=== PATIENT | male | born 1985 | race Caucasian/White ===

== ENCOUNTER 2020-07-20 15:18 | Inpatient (IN) ==
[2020-07-20] MEDS ORDERED: LORazepam 1 MG TAB SL STA (16:23)
[2020-07-20] MEDS ORDERED: ONDANSETRON 4 MG OD TAB PO STA (16:23)
[2020-07-20] MEDS ORDERED: MULTI-VITAMIN INFUSION 10 ML, THIAMINE HCL 100 MG, FOLIC ACID 1 MG in SODIUM CHLORIDE 0... IV ONE (16:23)
--- NOTE | 2020-07-20 16:33 | Emergency Department Note ---
History of Present Illness General Chief complaint: Detox Request Stated complaint: SWELLING TO BOTH LEGS AND FACE Time Seen by Provider: 07/20/20 16:11 Source: patient Mode of arrival: ambulatory Limitations: no limitations History of Present Illness Provider complaint: Leg swelling abdominal pain Maximum Pain Intensity: 8 This is a 35-year-old male who presents to the ED with a chief complaint of several complaints. The patient states that he has had feet swelling and lower extremity swelling off and on but it has been present and bad the past couple of days. He states that he has some tremors because he feels that he is coming off of methadone and alcohol. He did drink alcohol a couple of hours ago. He reports his last methadone use was yesterday. He states that he " feels like crap". The patient reports nausea and vomiting intermittently for the past couple of days. He also states that his teeth and gums have been bothering him for a long time. He reports some swelling in his face. The patient reports also some diffuse abdominal pain that is worse on the right upper and lower quadrants for the past couple of days. Home Medications Medication Instructions Recorded Confirmed Type METHADONE HCL 96 mg PO QAM #0 04/10/15 12/30/19 History Allergies Allergy/AdvReac Type Severity Reaction Status Date / Time No Known Allergies Allergy Unverified 12/30/19 11:53 Past Med/Surg History Medical History (Updated 07/20/20 @ 19:39 by Fuentes Noriega DO) Hyponatremia Hypoxia Multiple thermal rockwell Pneumonia Vomiting Social History Smoking Status: Current every day smoker Tobacco Type: Cigarettes Preferred Language: Lithuanian Feels Safe at Home: Yes Review of Systems A total of 10 systems reviewed and were otherwise negative Physical Exam Vital Signs Vital Signs - 24 hr 07/20/20 15:18 07/20/20 15:27 07/20/20 16:05 Temperature 36.3 C L Temperature Source Oral Pulse Rate 110 H 99 H Pulse Rate from SpO2 Sensor 100 H Pulse Rhythm Respiratory Rate 18 19 Blood Pressure 111/65 130/81 Blood Pressure Mean 80 96 Pulse Oximetry 95 92 97 Oxygen Delivery Method Room Air Room Air Oxygen Flow Rate Sepsis Recent Fever Within 48 Hours No Sepsis New/Unexplained Change in Mental Status No Sepsis Action Taken by Nursing No Action Required 07/20/20 16:24 07/20/20 16:30 07/20/20 17:04 Temperature Temperature Source Pulse Rate 110 H 96 H 99 H Pulse Rate from SpO2 Sensor 96 H 98 H Pulse Rhythm Regular Respiratory Rate 18 12 20 Blood Pressure 115/76 90/69 L Blood Pressure Mean 89 80 Pulse Oximetry 95 92 91 Oxygen Delivery Method Room Air Oxygen Flow Rate Sepsis Recent Fever Within 48 Hours Sepsis New/Unexplained Change in Mental Status Sepsis Action Taken by Nursing 07/20/20 17:30 07/20/20 18:00 07/20/20 19:00 Temperature Temperature Source Pulse Rate 91 H 92 H 100 H Pulse Rate from SpO2 Sensor 90 91 H 101 H Pulse Rhythm Respiratory Rate 17 13 12 Blood Pressure 116/71 126/72 123/73 Blood Pressure Mean 88 88 90 Pulse Oximetry 96 96 95 Oxygen Delivery Method Nasal Cannula Oxygen Flow Rate 2 Sepsis Recent Fever Within 48 Hours Sepsis New/Unexplained Change in Mental Status Sepsis Action Taken by Nursing CONSTITUTIONAL/VITAL SIGNS: Reviewed / noted above. GENERAL: Non-toxic in appearance. INTEGUMENTARY: Warm, dry, and [place]. HEAD: Normocephalic. EYES: without scleral icterus or trauma. ENT/OROPHARYNX: clear and moist. The patient has diffusely poor dentition. The mouth appears slightly dry. No obvious asymmetric swelling to the face. LYMPHADENOPATHY/NECK: Is supple without lymphadenopathy or meningismus. RESPIRATORY: Lungs clear and equal. CARDIOVASCULAR: Slightly tachycardic rate and rhythm. GI/ABDOMEN: Soft and tender primarily in the right upper and lower quadrants. No organomegaly or pulsatile mass. No rebound or guarding. Normal bowel sounds. EXTREMITIES: Warm and well perfused. The patient has bilateral lower extremity edema at least up to the knees. BACK: No CVA tenderness. NEUROLOGICAL: Intact without focal deficits. PSYCHIATRIC: normal affect. MUSCULOSKELETAL: Normally developed with good muscle tone. TRIAGE NURSING DOCUMENTATION REVIEWED. Course Administered Medications Discontinued Medications Multivitamins 10 ml/ Thiamine HCl 100 mg/ Folic Acid 1 mg/Sodium Chloride 1,011.2 mls @ 1,011.2 mls/hr IV .Q1H ONE Stop: 07/20/20 17:22 Last Infusion: 07/20/20 19:19 Dose: 0 mls/hr Documented by: [id number] Admin: 07/20/20 17:25 Dose: 1,011.2 mls/hr Documented by: [id number] Lorazepam (Lorazepam 1 Mg Tab) 1 mg SL NOW STA Stop: 07/20/20 16:24 Last Admin: 07/20/20 16:49 Dose: 1 mg Documented by: [id number] Ondansetron HCl (Ondansetron 4 Mg Od Tab) 4 mg PO NOW STA Stop: 07/20/20 16:24 Last Admin: 07/20/20 16:49 Dose: 4 mg Documented by: [id number] Medical Decision Making Differential Diagnosis Differential includes acute coronary syndrome, myocardial infarction, CVA, TIA, anemia, infection, pneumonia, UTI, pyelonephritis, poor nutrition, dehydration, electrolyte disturbance,hypoglycemia, toxicologic process, toxicology withdrawal syndrome, hypoproteinemia, appendicitis, acute cholecystitis, cirrhosis, pancreatitis, bowel obstruction, bowel perforation. Medical Records Attestation: I reviewed the patient's medical records. Home Medications Current Medication List: was personally reviewed by me Laboratory Data Attestation: I reviewed the patient's lab results. Result diagrams: 07/20/20 17:01 07/20/20 17:01 Lab Results 07/20/20 07/20/20 07/20/20 Range/Units 17:01 17:01 17:02 WBC 4.48 L (4.8-10.8) K/uL RBC 3.58 L (4.7-6.1) M/uL Hgb 13.2 L (14.0-18.0) g/dL Hct 37.5 L (42-52) % MCV 104.7 H (80-100) fL MCH 36.9 H (25-34) pg MCHC 35.2 (32-36) g/dL RDW Std Deviation 64.1 H (36.4-46.3) fL RDW Coeff of Lenora 16.7 H (11.5-14.5) % Plt Count 70 L (130-400) K/uL MPV 11.5 H (7.4-10.4) fL Immature Gran % (Auto) 0.4 % Neut % (Auto) 64.0 % Lymph % (Auto) 23.0 % Louisa % (Auto) 11.8 % Eos % (Auto) 0.4 % Baso % (Auto) 0.4 % Neut # (Auto) 2.86 (1.4-6.5) K/uL Lymph # (Auto) 1.03 L (1.2-3.4) K/uL Louisa # (Auto) 0.53 (0.11-0.59) K/uL Eos # (Auto) 0.02 (0-0.5) K/uL Baso # (Auto) 0.02 (0-0.2) K/uL Immature Gran # (Auto) 0.02 (0.00-0.02) K/uL Platelet Estimate Decreased L (Normal) Target Cells 1+ PT 13.1 H (9.0-12.0) Seconds INR 1.3 H (0.9-1.1) APTT 29.2 (21.0-31.0) Seconds PTT Ratio 1.0 Sodium 132 L (136-145) mmol/L Potassium 3.2 L (3.5-5.1) mmol/L Chloride 94 L (98-107) mmol/L Carbon Dioxide 26 (21-32) mmol/L Anion Gap 13.0 H (3-11) BUN 3 L (7-18) mg/dl Creatinine 0.63 (0.6-1.4) mg/dl Est Cr Clr Drug Dosing 178.5 ml/min Est GFR ( Amer) 149.0 Est GFR (Non-Af Amer) 128.6 BUN/Creatinine Ratio 4.9 L (10-20) Glucose 127 H (70-99) mg/dl Calcium 8.4 L (8.5-10.1) mg/dl Total Bilirubin 7.6 H (0.2-1) mg/dl AST 642 H (15-37) U/L ALT 120 H (12-78) U/L Alkaline Phosphatase 359 H (45-117) U/L Total Protein 8.2 (6.4-8.2) gm/dl Albumin 2.6 L (3.4-5.0) gm/dl Globulin 5.6 H (2.5-4.0) gm/dl Albumin/Globulin Ratio 0.5 L (0.9-2) Lipase 276 (73-393) U/L Urine Color Urine Appearance (Clear) Urine pH (4.5-7.5) Ur Specific [place] (1.000-1.030) Urine Protein (Negative) Urine Glucose (UA) (Negative) Urine Ketones (Negative) Urine Blood (Negative) Urine Nitrite (Negative) Urine Bilirubin (Negative) Urine Urobilinogen (Negative) Ur Leukocyte Esterase (Negative) Urine WBC (Auto) (0-5) /hpf Urine RBC (Auto) (0-4) /hpf U Hyaline Cast (Auto) (0-5) /lpf U Epithel Cells (Auto) (0-5) /lpf Urine Bacteria (Auto) (Negative) Ur Renal Epithelial Cell (0-5) /lpf Urine Crystals Urine Opiates Screen (Neg) Ur Methadone, Qual (Neg) Urine Barbiturates (Neg) Ur Phencyclidine (PCP) (Neg) U Amphetamin/Meth Scrn (Neg) MDMA (Ecstasy) Screen (Neg) U Benzodiazepines Scrn (Neg) Ur Cocaine Metabolite (Neg) U Marijuana (THC) Screen (Neg) Ethyl Alcohol mg/dL (0-3) mg/dl 07/20/20 07/20/20 07/20/20 Range/Units 18:37 18:37 18:58 WBC (4.8-10.8) K/uL RBC (4.7-6.1) M/uL Hgb (14.0-18.0) g/dL Hct (42-52) % MCV (80-100) fL MCH (25-34) pg MCHC (32-36) g/dL RDW Std Deviation (36.4-46.3) fL RDW Coeff of Lenora (11.5-14.5) % Plt Count (130-400) K/uL MPV (7.4-10.4) fL Immature Gran % (Auto) % Neut % (Auto) % Lymph % (Auto) % Louisa % (Auto) % Eos % (Auto) % Baso % (Auto) % Neut # (Auto) (1.4-6.5) K/uL Lymph # (Auto) (1.2-3.4) K/uL Louisa # (Auto) (0.11-0.59) K/uL Eos # (Auto) (0-0.5) K/uL Baso # (Auto) (0-0.2) K/uL Immature Gran # (Auto) (0.00-0.02) K/uL Platelet Estimate (Normal) Target Cells PT (9.0-12.0) Seconds INR (0.9-1.1) APTT (21.0-31.0) Seconds PTT Ratio Sodium (136-145) mmol/L Potassium (3.5-5.1) mmol/L Chloride (98-107) mmol/L Carbon Dioxide (21-32) mmol/L Anion Gap (3-11) BUN (7-18) mg/dl Creatinine (0.6-1.4) mg/dl Est Cr Clr Drug Dosing ml/min Est GFR ( Amer) Est GFR (Non-Af Amer) BUN/Creatinine Ratio (10-20) Glucose (70-99) mg/dl Calcium (8.5-10.1) mg/dl Total Bilirubin (0.2-1) mg/dl AST (15-37) U/L ALT (12-78) U/L Alkaline Phosphatase (45-117) U/L Total Protein (6.4-8.2) gm/dl Albumin (3.4-5.0) gm/dl Globulin (2.5-4.0) gm/dl Albumin/Globulin Ratio (0.9-2) Lipase (73-393) U/L Urine Color Ariana Urine Appearance Clear (Clear) Urine pH 6.5 (4.5-7.5) Ur Specific [place] 1.009 (1.000-1.030) Urine Protein Trace H (Negative) Urine Glucose (UA) Negative (Negative) Urine Ketones Negative (Negative) Urine Blood Negative (Negative) Urine Nitrite Positive A (Negative) Urine Bilirubin 3+ H (Negative) Urine Urobilinogen Negative (Negative) Ur Leukocyte Esterase Trace H (Negative) Urine WBC (Auto) 5-10 H (0-5) /hpf Urine RBC (Auto) 0-4 (0-4) /hpf U Hyaline Cast (Auto) 1-5 (0-5) /lpf U Epithel Cells (Auto) 5-10 H (0-5) /lpf Urine Bacteria (Auto) Negative (Negative) Ur Renal Epithelial Cell 0-5 (0-5) /lpf Urine Crystals Not Reportable Urine Opiates Screen Neg (Neg) Ur Methadone, Qual Pos H (Neg) Urine Barbiturates Neg (Neg) Ur Phencyclidine (PCP) Neg (Neg) U Amphetamin/Meth Scrn Neg (Neg) MDMA (Ecstasy) Screen Neg (Neg) U Benzodiazepines Scrn Neg (Neg) Ur Cocaine Metabolite Neg (Neg) U Marijuana (THC) Screen Neg (Neg) Ethyl Alcohol mg/dL 304.5 H (0-3) mg/dl Imaging Data Radiologist's Impression: CT scan of the abdomen pelvis: IMPRESSION: 1. There are no acute infectious or inflammatory findings in the abdomen or pelvis. 2. Hepatomegaly and severe hepatic steatosis. This represents a significant change from 2012. 3. The gallbladder is filled with hyperdense material which may represent stones and sludge. Chest x-ray:SINGLE VIEW CHEST CLINICAL HISTORY: Generalized abdominal pain. FINDINGS: An AP, portable, upright chest radiograph is compared to study dated 12/30/2019. The cardiomediastinal silhouette is unremarkable. There is mild chronic elevation of the left hemidiaphragm with associated left basilar atelectasis. The lungs and pleural spaces are otherwise clear. No pneumothorax is seen. The bony thorax is grossly intact. IMPRESSION: No active disease in the chest. MDM Narrative The patient presents with a multitude of symptoms as detailed above. 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 He also last used alcohol a couple of hours ago. He is reporting some nausea and vomiting and some right upper and lower quadrant abdominal pain. He also reports some swelling in his lower extremities and some tremors and feeling like crap. His exam as noted above. He does have some diffuse abdominal pain that seems to be worse in the right upper and lower quadrants on my exam. He does have some lower extremity edema as well. He is tachycardic with a heart rate of 110. He is afebrile. He denies having recent Covid symptoms but he has a chronic cough related to smoking. The patient CBC reveals a low platelet count. He has an elevated AST and ALT as well as a low albumin. His lipase was negative. His bilirubin is significantly elevated at 7.6. His meld score is 21. The patient was treated with IV banana bag as well as some sublingual Zofran and sublingual Ativan. He was told the results of the test. CT scan of the abdomen and pelvis is noted above. Chest x-ray did not show acute process. He will require inpatient evaluation. Impression & Plan Nausea & vomiting, Edema, Abdominal pain, Acute alcoholic hepatitis Discharge Plan Visit Data Chief Complaint: Detox Request Stated Complaint: SWELLING TO BOTH LEGS AND FACE ED Provider: Fuentes Noriega Discharge Problem: Nausea & vomiting, Edema, Abdominal pain, Acute alcoholic hepatitis Patient Disposition: Being Evaluated by Hospitalist Forms Stand Alone Forms: My [facility], Suicide Prevention Resources Prescriptions Prescriptions: No Action METHADONE HCL 10 MG/ML CON 96 mg PO QAM Qty: 0 RF: 0 Referrals Referrals: PCP,NO [Primary Care Provider] - Discharge Problem: Nausea & vomiting Qualifiers: Vomiting type: unspecified Vomiting Intractability: non-intractable Qualified Code(s): R11.2 - Nausea with vomiting, unspecified Abdominal pain Qualifiers: Abdominal location: generalized Qualified Code(s): R10.84 - Generalized abdominal pain
--- NOTE | 2020-07-20 17:20 | XRay Report ---
SINGLE VIEW CHEST CLINICAL HISTORY: Generalized abdominal pain. FINDINGS: An AP, portable, upright chest radiograph is compared to study dated 12/30/2019. The cardiome diastinal silhouette is unremarkable. There is mild chronic elevation of the left hemidiaphragm with associated left basilar atelectasis. The lungs and pleural spaces are otherwise clear. No pneumothora x is seen. The bony thorax is grossly intact. IMPRESSION: No active disease in the chest. ACT 112: Negative or not required by law. Electronically signed by: Landon Almaraz M.D. 07/20/2020 5:18 PM
[2020-07-20 17:33] LABS: Hematocrit (blood only) 37.5 % (42-52); Hemoglobin 13.2 g/dL (14.0-18.0); Mean Corpuscular Hemoglobin 36.9 pg (25-34); Mean Corpuscular Hgb Conc 35.2 g/dL (32-36); Mean Corpuscular Volume 104.7 fL (80-100); RDW Coefficient of Variation 16.7 % (11.5-14.5); RDW Standard Deviation 64.1 fL (36.4-46.3); Red Blood Count 3.58 M/uL (4.7-6.1); White Blood Count 4.48 K/uL (4.8-10.8)
[2020-07-20 17:41] LABS: Albumin Level 2.6 gm/dl (3.4-5.0); BUN Creatinine Ratio 4.9 (10-20); Calcium 8.4 mg/dl (8.5-10.1); Creatinine Clr Calc Pharmacy 178.5 ml/min; Est GFR (Non-African American) 128.6; Potassium 3.2 mmol/L (3.5-5.1)
[2020-07-20 17:50] LABS: Basophils # (auto) 0.02 K/uL (0-0.2); Basophils % (auto) 0.4 %; Eosinophils # (auto) 0.02 K/uL (0-0.5); Eosinophils % (auto) 0.4 %; Immature Granulocytes # (auto) 0.02 K/uL (0.00-0.02); Immature Granulocytes % (auto) 0.4 %; Lymphocytes # (auto) 1.03 K/uL (1.2-3.4); Mean Platelet Volume 11.5 fL (7.4-10.4); Monocytes # (auto) 0.53 K/uL (0.11-0.59); Monocytes % (auto) 11.8 %; Neutrophils # (auto) 2.86 K/uL (1.4-6.5); Platelet Count 70 K/uL (130-400); Platelet Estimate Decreased (Normal); Target Cells 1+
[2020-07-20 18:04] LABS: Albumin Globulin Ratio 0.5 (0.9-2); Bilirubin,Total 7.6 mg/dl (0.2-1); Globulin 5.6 gm/dl (2.5-4.0); Total Protein 8.2 gm/dl (6.4-8.2)
[2020-07-20 18:19] LABS: INR 1.3 (0.9-1.1); Partial Thromboplastin Time 29.2 Seconds (21.0-31.0); Prothrombin Time 13.1 Seconds (9.0-12.0)
[2020-07-20 18:55] LABS: Appearance Urine Clear (Clear); Bacteria Urine Automated Negative (Negative); Blood Urine Negative (Negative); Glucose Urine UA Negative (Negative); Ketones Urine Negative (Negative); Leukocyte Esterase Urine Trace (Negative); Nitrite Urine Positive (Negative); Protein Urine Trace (Negative); RBC Urine Automated 0-4 /hpf (0-4); Specific Gravity Urine 1.009 (1.000-1.030); Urobilinogen Urine Negative (Negative); pH Urine 6.5 (4.5-7.5)
[2020-07-20 19:08] LABS: Bilirubin Urine 3+ (Negative)
[2020-07-20 19:10] LABS: Color Urine Amber; Ictotest Urine Positive (Negative)
[2020-07-20 19:11] LABS: Amphetamines+Metham, Urine Neg (Neg); Barbiturates, Urine Neg (Neg); Benzodiazepine, Urine Neg (Neg); Cocaine, Urine Neg (Neg); MDMA (Ecstacy), Urine Neg (Neg); Methadone, Urine Pos (Neg); Opiate, Urine Neg (Neg); Phencyclidine, Urine Neg (Neg)
[2020-07-20 19:22] LABS: Renal Epithelial Cells Urine 0-5 /lpf (0-5)
[2020-07-20] MEDS ORDERED: LORazepam 1 MG/2 ML VIAL IV PRN (19:49)
[2020-07-20] MEDS ORDERED: LORazepam 3 MG/6 ML VIAL IV PRN (19:49)
[2020-07-20] MEDS ORDERED: LORazepam 2 MG/4 ML VIAL IV PRN (19:49)
[2020-07-20] MEDS ORDERED: ONDANSETRON INJ 2 MG/ML 2 ML VIAL IV PRN (19:49)
[2020-07-20] MEDS ORDERED: GABAPENTIN 1200MG ALCOHOL WITHDRAWAL LOAD PO STA (19:49)
[2020-07-20] MEDS ORDERED: ATIVAN IV ALCOHOL WITHDRAWL IV PRN (19:49)
--- NOTE | 2020-07-20 19:50 | CT Scan Report ---
CT SCAN OF THE ABDOMEN AND PELVIS WITHOUT IV CONTRAST CLINICAL HISTORY: Right-sided abdominal pain. COMPARISON STUDY: Abdominal CT dated 03/22/2012. TECHNIQUE: CT scan of the abdomen and pelvis is performed from the lung bases to the proximal femora. Images are reviewed in the axial, sagittal, and coronal planes. IV contrast was not administered for this examination. Note that the examination is suboptimal without oral and IV contrast. A dose lower ing technique was utilized adhering to the principles of ALARA. CT DOSE: 559.60 mGy.cm FINDINGS: Lung bases: The heart is normal in size and without pericardial effusion. The lung bases are clear no ting bibasilar scarring/atelectasis. Liver: The unenhanced liver is enlarged, measuring 20.9 cm in length. The liver demonstrates diffusel y diminished attenuation consistent with severe hepatic steatosis. There is no intrahepatic biliary d uctal dilatation. Gallbladder: Hyperdense material within the gallbladder may represent sludge and stones. Spleen: Normal in size and attenuation. Pancreas: Atrophic for age and grossly unremarkable. Adrenal glands: Unremarkable. Kidneys: The unenhanced kidneys are normal in size and without hydronephrosis. There are no renal rashad culi identified. There is no evidence of contour deforming renal mass lesion. Abdominal vasculature: The abdominal aorta is normal in course and caliber. Bowel: There is no bowel obstruction. The appendix is diminutive and grossly unremarkable. The base of the appendix is seen on image #[id number]. Peritoneum: There is no intraperitoneal free air or abdominal ascites. Lymphadenopathy: None. Pelvic viscera: The bladder, prostate, and seminal vesicles are normal as visualized. Skeletal structures: No lytic or blastic lesions are seen. IMPRESSION: 1. There are no acute infectious or inflammatory findings in the abdomen or pelvis. 2. Hepatomegaly and severe hepatic steatosis. This represents a significant change from 2012. 3. The gallbladder is filled with hyperdense material which may represent stones and sludge. ACT 112: Negative or not required by law. Electronically signed by: Landon Almaraz M.D. 07/20/2020 7:48 PM
--- NOTE | 2020-07-20 20:30 | History & Physical Report ---
Date of Service July 20, 2020 Assessment & Plan (1) Alcohol withdrawal: Alcohol withdrawal- AWSS protocol with gabapentin and IV Ativan. Thiamine 100 mg p.o. daily Folic acid 1 mg p.o. daily Nephrocaps 1 p.o. daily NSS + KCl 20 mEq at 125 mils per hour Zofran 4 mg IV every 6 hours as needed Patient prefers no psychiatric evaluation Present on Admission?: Yes (2) Alcoholic fatty liver: Severe fatty liver disease now seen on CT, new compared to 2012. Follow serial CBC with differential, chemistry profile, magnesium and phosphorus levels while in hospital Should have at least yearly ultrasounds and liver testing done. Meld score today is 13. Needs to establish with GI and/or hepatology. Needs to quit alcohol altogether. Present on Admission?: Yes (3) Nausea & vomiting: Zofran IV as noted Present on Admission?: Yes (4) Thrombocytopenia: Thrombocytopenia likely directly and indirectly related to alcohol use. Patient platelets have decreased from 243, to 115, to today at 70. Present on Admission?: Yes History of Present Illness Chief Complaint: The patient presents to the emergency department with complaint of worsening tremors, abdominal discomfort, and general feelings that he is withdrawing from both methadone and alcohol. Primary Care Provider: NO PCP The patient is a 35-year-old male with past medical history including opiate abuse, acute alcoholic hepatitis, hyponatremia, pneumonia and multiple thermal rockwell. He presents to the emergency department with concerns regarding going through withdrawal as noted above, and feels he needs to be admitted into the hospital. His last alcohol intake was around 3:30 in the afternoon on 07/20, and his last food intake was at breakfast on 07/19 Allergies Allergy/AdvReac Type Severity Reaction Status Date / Time No Known Allergies Allergy Unverified 07/20/20 20:09 Home Medications Medication Instructions Recorded Confirmed Type methadone 40 mg PO DAILY 07/20/20 07/20/20 History Past Med/Surg History Medical History (Updated 07/21/20 @ 00:08 by Frank Anthony MD) Hyponatremia Hypoxia Multiple thermal rockwell Pneumonia Vomiting Social History Smoking Status: Current every day smoker Tobacco Type: Cigarettes Cigarettes Per Day: 25; Do You Dip or Chew Tobacco: No; Hx Alcohol Use: Yes Hx Substance Use: Yes Last Used Substance Other:: yesterday Substance Use Type Other:: methadone Preferred Language: Icelandic Communication Ability: Effective 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 The review of systems is otherwise negative other than for that already noted above, and at least 10 systems have been reviewed. Physical Exam Physical Exam: The patient is awake, alert and oriented 3, appears disheveled, normocephalic and atraumatic, lying in bed and in no acute distress. HEENT--PERRL, EOMI, mucous membranes and oropharynx dry. Neck--supple. No JVD. No bruits. Thyroid normal, trachea midline, no adenopathy. Heart--normal S1 and S2. No murmurs, rubs or gallops. Lungs--clear bilaterally, no respiratory distress, no accessory muscle use. Abdomen--normal bowel sounds and soft. Nontender. Nondistended. Extremities--no cyanosis or clubbing. No edema. Dermatologic--normal skin turgor, normal color, no abnormal lymph nodes, no rash. Neurologic--cranial nerves II through XII grossly intact. Rheumatologic--normal range of motion. Psychiatric--appears mildly depressed Results & Data Results & Data ([facility]) Vital Signs (Past 12 Hours) Vital Signs Temp Pulse Resp BP Pulse Ox 07/20/20 19:00 100 H 12 123/73 95 07/20/20 18:00 92 H 13 126/72 96 07/20/20 17:30 91 H 17 116/71 96 07/20/20 17:04 99 H 20 90/69 L 91 07/20/20 16:30 96 H 12 115/76 92 07/20/20 16:24 110 H 18 95 07/20/20 16:05 99 H 19 130/81 97 07/20/20 15:27 92 07/20/20 15:18 97.3 F L 110 H 18 111/65 95 Laboratory Results Laboratory Results WBC 4.48 K/uL (4.8-10.8) L 07/20/20 17: RBC 3.58 M/uL (4.7-6.1) L 07/20/20 17:01 Hgb 13.2 g/dL (14.0-18.0) L 07/20/20 17: Hct 37.5 % (42-52) L 07/20/20 17: MCV 104.7 fL (80-100) H 07/20/20 17: MCH 36.9 pg (25-34) H 07/20/20 17: MCHC 35.2 g/dL (32-36) 07/20/20 17: RDW Std Deviation 64.1 fL (36.4-46.3) H 07/20/20 17: RDW Coeff of Lenora 16.7 % (11.5-14.5) H 07/20/20 17: Plt Count 70 K/uL (130-400) L 07/20/20 17:01 MPV 11.5 fL (7.4-10.4) H 07/20/20 17: Immature Gran % (Auto) 0.4 % 07/20/20 17: Neut % (Auto) 64.0 % 07/20/20 17: Lymph % (Auto) 23.0 % 07/20/20 17: Mcdonough % (Auto) 11.8 % 07/20/20 17: Eos % (Auto) 0.4 % 07/20/20 17: Baso % (Auto) 0.4 % 07/20/20 17:01 Neut # (Auto) 2.86 K/uL (1.4-6.5) 07/20/20 17: Lymph # (Auto) 1.03 K/uL (1.2-3.4) L 07/20/20 17: Mcdonough # (Auto) 0.53 K/uL (0.11-0.59) 07/20/20 17: Eos # (Auto) 0.02 K/uL (0-0.5) 07/20/20 17: Baso # (Auto) 0.02 K/uL (0-0.2) 07/20/20 17:01 Immature Gran # (Auto) 0.02 K/uL (0.00-0.02) 07/20/20 17:01 Platelet Estimate Decreased (Normal) L 07/20/20 17:01 Target Cells 1+ 07/20/20 17:01 PT 13.1 Seconds (9.0-12.0) H 07/20/20 17:02 INR 1.3 (0.9-1.1) H 07/20/20 17:02 APTT 29.2 Seconds (21.0-31.0) 07/20/20 17:02 PTT Ratio 1.0 07/20/20 17:02 Sodium 132 mmol/L (136-145) L 07/20/20 17: Potassium 3.2 mmol/L (3.5-5.1) L 07/20/20 17: Chloride 94 mmol/L (98-107) L 07/20/20 17: Carbon Dioxide 26 mmol/L (21-32) 07/20/20 17: Anion Gap 13.0 (3-11) H 07/20/20 17: BUN 3 mg/dl (7-18) L 07/20/20 17: Creatinine 0.63 mg/dl (0.6-1.4) 07/20/20 17: Est Cr Clr Drug Dosing 178.5 ml/min 07/20/20 17:01 Est GFR ( Amer) 149.0 07/20/20 17: Est GFR (Non-Af Amer) 128.6 07/20/20 17: BUN/Creatinine Ratio 4.9 (10-20) L 07/20/20 17:01 Glucose 127 mg/dl (70-99) H 07/20/20 17:01 Calcium 8.4 mg/dl (8.5-10.1) L 07/20/20 17: Total Bilirubin 7.6 mg/dl (0.2-1) H 07/20/20 17:01 AST 642 U/L (15-37) H 07/20/20 17:01 ALT 120 U/L (12-78) H 07/20/20 17:01 Alkaline Phosphatase 359 U/L (45-117) H 07/20/20 17:01 Total Protein 8.2 gm/dl (6.4-8.2) 07/20/20 17:01 Albumin 2.6 gm/dl (3.4-5.0) L 07/20/20 17:01 Globulin 5.6 gm/dl (2.5-4.0) H 07/20/20 17:01 Albumin/Globulin Ratio 0.5 (0.9-2) L 07/20/20 17:01 Lipase 276 U/L (73-393) 07/20/20 17:01 Urine Color Ariana 07/20/20 18:37 Urine Appearance Clear (Clear) 07/20/20 18:37 Urine pH 6.5 (4.5-7.5) 07/20/20 18:37 Ur Specific [place] 1.009 (1.000-1.030) 07/20/20 18:37 Urine Protein Trace (Negative) H 07/20/20 18:37 Urine Glucose (UA) Negative (Negative) 07/20/20 18:37 Urine Ketones Negative (Negative) 07/20/20 18:37 Urine Blood Negative (Negative) 07/20/20 18:37 Urine Nitrite Positive (Negative) A 07/20/20 18:37 Urine Bilirubin 3+ (Negative) H 07/20/20 18:37 Urine Urobilinogen Negative (Negative) 07/20/20 18:37 Ur Leukocyte Esterase Trace (Negative) H 07/20/20 18:37 Urine WBC (Auto) 5-10 /hpf (0-5) H 07/20/20 18:37 Urine RBC (Auto) 0-4 /hpf (0-4) 07/20/20 18:37 U Hyaline Cast (Auto) 1-5 /lpf (0-5) 07/20/20 18:37 U Epithel Cells (Auto) 5-10 /lpf (0-5) H 07/20/20 18:37 Urine Bacteria (Auto) Negative (Negative) 07/20/20 18:37 Ur Renal Epithelial Cell 0-5 /lpf (0-5) 07/20/20 18:37 Urine Crystals Not Reportable 07/20/20 18:37 Urine Opiates Screen Neg (Neg) 07/20/20 18:37 Ur Methadone, Qual Pos (Neg) H 07/20/20 18:37 Urine Barbiturates Neg (Neg) 07/20/20 18:37 Ur Phencyclidine (PCP) Neg (Neg) 07/20/20 18:37 U Amphetamin/Meth Scrn Neg (Neg) 07/20/20 18:37 MDMA (Ecstasy) Screen Neg (Neg) 07/20/20 18:37 U Benzodiazepines Scrn Neg (Neg) 07/20/20 18:37 Ur Cocaine Metabolite Neg (Neg) 07/20/20 18:37 U Marijuana (THC) Screen Neg (Neg) 07/20/20 18:37 Ethyl Alcohol mg/dL 304.5 mg/dl (0-3) H 07/20/20 18:58 [facility]19 [facility] 07/20/20 21:30 SARS-CoV-2, RNA, NAAT NEGATIVE (NEGATIVE) 07/20/20 21:30 Diagnostic Findings [facility], [phone] CT Scan Report Patient: Kajal RAE Date: 07/20/20MR#: [id number]: [address] RDAcct ID:[id number]: Date: [address] [facility] Zip: [place], [place] [address]Xre: 35Location: EDSex: MRoom/Bed:Att Phy:Diagnosis: SWELLING TO BOTH LEGS AND FACEPri Phy: PCP,NOService Date: 07/20/20Fam Phy:Interpreting Phy: Landon Almaraz MDAdmit Phy: Ordering Phy: Fuentes Noriega D.O. cc: ~ CT SCAN OF THE ABDOMEN AND PELVIS WITHOUT IV CONTRAST CLINICAL HISTORY: Right-sided abdominal pain. COMPARISON STUDY: Abdominal CT dated 03/22/2012. TECHNIQUE: CT scan of the abdomen and pelvis is performed from the lung bases to the proximal femora. Images are reviewed in the axial, sagittal, and coronal planes. IV contrast was not administered for this examination. Note that the examination is suboptimal without oral and IV contrast. A dose lowering technique was utilized adhering to the principles of ALARA. CT DOSE: 559.60 mGy.cm FINDINGS: Lung bases: The heart is normal in size and without pericardial effusion. The lung bases are clear noting bibasilar scarring/atelectasis. Liver: The unenhanced liver is enlarged, measuring 20.9 cm in length. The liver demonstrates diffusely diminished attenuation consistent with severe hepatic steatosis. There is no intrahepatic biliary ductal dilatation. Gallbladder: Hyperdense material within the gallbladder may represent sludge and stones. Spleen: Normal in size and attenuation. Pancreas: Atrophic for age and grossly unremarkable. Adrenal glands: Unremarkable. Kidneys: The unenhanced kidneys are normal in size and without hydronephrosis. There are no renal calculi identified. There is no evidence of contour deforming renal mass lesion. Abdominal vasculature: The abdominal aorta is normal in course and caliber. Bowel: There is no bowel obstruction. The appendix is diminutive and grossly unremarkable. The base of the appendix is seen on image #307. Peritoneum: There is no intraperitoneal free air or abdominal ascites. Lymphadenopathy: None. Pelvic viscera: The bladder, prostate, and seminal vesicles are normal as visualized. Skeletal structures: No lytic or blastic lesions are seen. IMPRESSION: 1. There are no acute infectious or inflammatory findings in the abdomen or pelvis. 2. Hepatomegaly and severe hepatic steatosis. This represents a significant change from 2012. 3. The gallbladder is filled with hyperdense material which may represent stones and sludge. ACT 112: Negative or not required by law. Electronically signed by: Landon Almaraz M.D. 07/20/2020 7:48 PM Dictated: 07/20/201940Transcribed: 07/20/201940 [facility], [phone] XRay Report Patient: Kajal RAE Date: 07/20/20MR#: [id number]: [address] [facility] RDAcct ID:[id number]: Date: [address] [facility] Zip: [place], [place] [address]Svy: 35Location: EDSex: MRoom/Bed:Att Phy:Diagnosis: SWELLING TO BOTH LEGS AND FACEPri Phy: PCP,NOService Date: 07/20/20Fam Phy:Interpreting Phy: Landon Almaraz MDAdmit Phy: Ordering Phy: Fuentes Noriega D.O. cc: ~ SINGLE VIEW CHEST CLINICAL HISTORY: Generalized abdominal pain. FINDINGS: An AP, portable, upright chest radiograph is compared to study dated 12/30/2019. The cardiomediastinal silhouette is unremarkable. There is mild chronic elevation of the left hemidiaphragm with associated left basilar atelectasis. The lungs and pleural spaces are otherwise clear. No pneumothorax is seen. The bony thorax is grossly intact. IMPRESSION: No active disease in the chest. ACT 112: Negative or not required by law. Electronically signed by: Landon Almaraz M.D. 07/20/2020 5:18 PM Dictated: 07/20/201716Transcribed: 07/20/201716 Code Status & VTE Plan Code Status Full code VTE Prophylaxis Plan VTE Prophylaxis will be ordered: Yes PG Care Time/CCT Total # of Minutes Spent Total Time Spent with Patient: Total time spent is greater than 50% in coordination of care (as documented) at patient's floor/unit and/or counseling patient: Coding Level of Care Code 07801 Initial Inpt Care Lvl 3 Diagnoses Alcohol withdrawal F10.239 Alcoholic fatty liver K70.0 Nausea & vomiting R11.2 Vomiting Intractability: non-intractable Vomiting type: unspecified Thrombocytopenia D69.6 (1) Nausea & vomiting Vomiting Intractability: non-intractable Vomiting type: unspecified Qualified Code(s): R11.2 - Nausea with vomiting, unspecified
[2020-07-20] MEDS ORDERED: GABAPENTIN 600 MG TAB PO STA (20:45)
[2020-07-21] MEDS: NSS + 20MEQ KCL 20 MEQ/1,000 ML BAG IV SCH ×4 (00:02→23:57)
[2020-07-21] MEDS: THIAMINE HCL 100 MG TAB PO SCH ×2 (00:03→07:33)
[2020-07-21] MEDS: FOLIC ACID 1 MG TAB PO SCH ×2 (00:03→07:33)
[2020-07-21] MEDS: HEPARIN SOD 5,000 UNIT/0.5 ML VIAL SQ SCH ×3 (00:05→20:15)
[2020-07-21] MEDS ORDERED: Nursing to Pharmacy Communication SCH (05:15)
[2020-07-21] MEDS: GABAPENTIN 600 MG TAB PO SCH ×3 (05:43→19:38)
[2020-07-21 08:09] LABS: Hemoglobin 11.6 g/dL (14.0-18.0); Mean Corpuscular Hemoglobin 37.3 pg (25-34); Mean Corpuscular Hgb Conc 35.2 g/dL (32-36); Mean Corpuscular Volume 106.1 fL (80-100); Mean Platelet Volume 12.3 fL (7.4-10.4); Platelet Count 52 K/uL (130-400); RDW Coefficient of Variation 17.1 % (11.5-14.5); RDW Standard Deviation 66.3 fL (36.4-46.3); Red Blood Count 3.11 M/uL (4.7-6.1); White Blood Count 5.16 K/uL (4.8-10.8)
[2020-07-21 08:27] LABS: Basophils # (auto) 0.02 K/uL (0-0.2); Basophils % (auto) 0.4 %; Eosinophils # (auto) 0.03 K/uL (0-0.5); Eosinophils % (auto) 0.6 %; Immature Granulocytes # (auto) 0.02 K/uL (0.00-0.02); Immature Granulocytes % (auto) 0.4 %; Lymphocytes # (auto) 0.89 K/uL (1.2-3.4); Lymphocytes % (auto) 17.2 %; Monocytes # (auto) 0.33 K/uL (0.11-0.59); Monocytes % (auto) 6.4 %; Neutrophils # (auto) 3.87 K/uL (1.4-6.5); Target Cells 2+
[2020-07-21 08:38] LABS: Alanine Aminotransferase 109 U/L (12-78); Albumin Globulin Ratio 0.4 (0.9-2); Albumin Level 2.3 gm/dl (3.4-5.0); Alkaline Phosphatase 329 U/L (45-117); BUN Creatinine Ratio 6.4 (10-20); Blood Urea Nitrogen 4 mg/dl (7-18); Calcium 8.3 mg/dl (8.5-10.1); Carbon Dioxide 24 mmol/L (21-32); Chloride 97 mmol/L (98-107); Creatinine Clr Calc Pharmacy 190.7 ml/min; Est GFR (African American) > 150.0; Est GFR (Non-African American) 132.1; Globulin 5.3 gm/dl (2.5-4.0); Glucose 85 mg/dl (70-99); Phosphorus 2.2 mg/dl (2.5-4.9); Sodium 128 mmol/L (136-145); Total Protein 7.6 gm/dl (6.4-8.2)
[2020-07-21 09:01] LABS: INR 1.3 (0.9-1.1); Partial Thromboplastin Ratio 1.3; Partial Thromboplastin Time 36.1 Seconds (21.0-31.0); Prothrombin Time 13.7 Seconds (9.0-12.0)
[2020-07-21 09:17] LABS: Magnesium 1.4 mg/dl (1.8-2.4); Potassium 3.8 mmol/L (3.5-5.1)
[2020-07-21 09:30] LABS: Folate (Folic Acid) > 20.00 ng/ml (>5.38); Vitamin B12 1464 pg/ml (193-986)
[2020-07-21] MEDS: NICOTINE 21 MG/24 HR TDSY TD SCH (10:13)
--- NOTE | 2020-07-21 11:01 | Hospitalist Progress Note ---
Date of Service July 21, 2020 Assessment & Plan (1) Alcohol withdrawal: Patient is a 35 year old male with PMHx Alcohol abuse that presents with concerns of acute alcohol withdrawal and alcoholic hepatitis. Alcohol Withdrawal -AWSS with Gabapentin and PRN Ativan -Continue Folic Acid -Continue Thiamine Continue Nephrocaps -NSS + 20meq KCl 125ml/hr Acute Alcoholic Hepatitis and Alcoholic Fatty Liver -CT Ab/Pelv with hepatomegaly and severe hepatic steatosis. -Discriminant function at 18, no role for steroids at this time, continue to monitor -MELD score from 13-->25 at this time with 20% 3 month mortality -Consider GI consult in AM to establish patient with a GI service in the area or if symptoms worsen -Vitamin K trial today to screen for liver functional status -Viral Hepatitis screen in AM for completeness, though suspect symptoms secondary to alcohol abuse -Suspect RUQ pain due to capsular stretching of liver, will monitor for worsening, consider RUQ US to r/o cholecystitis if worsening. Macrocytic Anemia -Likely secondary to alcohol use -B12 level 1464, Folate level >20 Nausea and Vomiting -Controlled with PRN Zofran Hx Opioid Abuse -Continue Methadone 20mg QD Hypomagnesemia, Hypophosphatemia, Hyponatremia -Replete mag and phos -Expect improvement of hyponatremia with IVF and increased PO Dispo: M/S Telemetry FEN: NSS +20meq KCl 125ml/hr, Reg diet DVT: Hep 5000u TID Code: Full (2) Acute alcoholic hepatitis: (3) Alcoholic fatty liver: (4) Nausea & vomiting: (5) Opioid abuse: (6) Hyponatremia: (7) Hypomagnesemia: (8) Hypophosphatemia: Admission and Anticipated Discharge Date Admission Date: July 20, 2020 Supervising Physician Co-Signing Physician Notes I personally examined the patient and verified all rico points of history and exam, discussed case, and agree with decision making with Dr Rabago feeling better than this AM - once he got methadone some of symptoms improved. still shaky, but better than before. abdominal pain off and on. vitals noted nad heent nc at mmm breathing unlabored no accessory muscles good effort skin no rashes no pallor or icterus neuro no focal deficits abd soft nd mild RUQ tenderness no guarding no rebound no masses EtOH withdrawal - continue prn benzodiazepines/symptom triggered management narcotic withdrawal - better now that he's back on home dosing of methadone alcoholic hepatitis - discriminant function 18 so no role for steroids, continue to follow closely. screen for viral hepatitis for completeness, trial vitamin K and follow INR otherwise as above Subjective Patient examined this AM at the bedside. Patient appearing visible uncomfortable, stating that he "feels like shit." He notes that he has never had an issue with alcohol withdrawal in the past, but that this has been unpleasant and that he is interested in quitting alcohol after this hospital stay. He notes that he has roughly 1/2 gallon of bourbon in 3 days and that he has been doing so for a few months now. He states that he used to drink a 12 pack of beer darwin y, but stopped that due to nausea. His last drink was at 15:30 on 07/20. He notes currently that he is having difficulties keeping his body still and is tremulous and that his abdomen is hurting with the worst pain primarily in the RUQ. Review of Systems Constitutional: + body aches and + weakness; no fever and no chills Eyes: no photophobia and no worsening vision Ear, Nose, Mouth, Throat: no dizziness Respiratory: no cough, no dyspnea and no pain on inspiration Cardiovascular: no chest pain, no dyspnea on exertion and no palpitations Gastrointestinal: + abdominal pain and + nausea; no vomiting Genitourinary: no dysuria Musculoskeletal: + myalgia, + muscle weakness and + body aches Neurologic: + tremor(s); no dizziness, no headache(s) and no confusion Psychiatric: + anxiety Physical Exam Constitutional: + ill appearing, + obese and cooperative Eyes: normal visual mitchell by confrontation, PERRL and EOM intact bilaterally; sclerae not anicteric and no photophobia ENMT: external ear and nose normal, oropharynx normal Mouth: + dental caries, + poor dentition and + chipped teeth Neck: trachea midline, no thyromegaly Respiratory: normal respiratory effort, lungs clear to auscultation Cardiovascular: Rate/Rhythm: regular rhythm and + tachycardic Heart Sounds: no murmur Gastrointestinal (Abdomen): Inspection/Auscultation: abdomen normal to inspection and normal bowel sounds; abdomen not distended Percussion/Palpation: + abdomen tender (TTP throughout, worse in the RUQ ) and abdomen soft; no guarding and abdomen not rigid Skin: no rashes, warm and dry Psychiatric: Orientation: alert and oriented x 3 Eye Contact: + fair eye contact Results & Data Results & Data ([facility]) Vital Signs (Past 12 Hours) Vital Signs Temp Pulse Pulse Resp BP Pulse Ox 07/21/20 09:04 103 H 07/21/20 07:32 36.9 C 124 H 24 150/65 H 94 07/21/20 05:58 36.5 C 117 H 16 136/74 94 07/21/20 05:05 102 H 07/21/20 02:52 36.6 C 98 H 18 126/78 93 Resident Activity Tracking Resident Involvement: Resident Care Provided Care Provided: Adult Hospital Medicine (1) Nausea & vomiting Vomiting Intractability: non-intractable Vomiting type: unspecified Qualified Code(s): R11.2 - Nausea with vomiting, unspecified
[2020-07-21] MEDS: METHADONE HCL 10 MG TAB PO SCH (12:39)
[2020-07-21] MEDS ORDERED: POTASSIUM PHOS 3 MMOL/1 ML INFUSION IV STA (14:27)
[2020-07-21] MEDS ORDERED: POTASSIUM PHOSPHATE 21 MMOL in SODIUM CHLORIDE 0.9% 500 ML IV ONE (15:00)
[2020-07-21] MEDS ORDERED: PHYTONADIONE 5 MG in SODIUM CHLORIDE 0.9% 50 ML IV ONE (15:15)
[2020-07-21] MEDS: MAGNESIUM SULFATE / D5W 1 GM/100 ML BAG IV SCH ×4 (15:49→21:40)
--- NOTE | 2020-07-21 18:19 | Billing Data ---
Date of Service July 21, 2020 Coding Level of Care Code 30922 Subseq Hosp Care Lvl 3
[2020-07-22] MEDS: GABAPENTIN 600 MG TAB PO SCH ×2 (03:30→12:26)
[2020-07-22] MEDS: METHADONE HCL 10 MG TAB PO SCH (07:29)
[2020-07-22] MEDS: THIAMINE HCL 100 MG TAB PO SCH (07:30)
[2020-07-22] MEDS: NICOTINE 21 MG/24 HR TDSY TD SCH (07:30)
[2020-07-22] MEDS: FOLIC ACID 1 MG TAB PO SCH (07:30)
[2020-07-22] MEDS: NSS + 20MEQ KCL 20 MEQ/1,000 ML BAG IV SCH (07:32)
[2020-07-22] MEDS: HEPARIN SOD 5,000 UNIT/0.5 ML VIAL SQ SCH ×2 (07:34→20:25)
--- NOTE | 2020-07-22 07:43 | Hospitalist Progress Note ---
Date of Service July 22, 2020 Assessment & Plan (1) Alcohol withdrawal: Patient is a 35 year old male with PMHx Alcohol abuse that presents with concerns of acute alcohol withdrawal and alcoholic hepatitis. Alcohol Withdrawal -AWSS with Gabapentin and PRN Ativan -Continue Folic Acid -Continue Thiamine -Continue Nephrocaps -NSS 125ml/hr -Suspect at this point likely out of the realm of alcohol withdrawal -Patient uninterested in psychiatric services at this time, notes he would prefer alcohol cessation "[facility] [place]." Acute Alcoholic Hepatitis and Alcoholic Fatty Liver -CT Ab/Pelv with hepatomegaly and severe hepatic steatosis. -Discriminant function at 18-->21.4, no role for steroids at this time, continue to monitor -MELD score from 13-->25 at this time with 20% 3 month mortality -Consider GI consult prior to discharge to establish with a provider in the area. -Vitamin K given yesterday for trial of Liver function -INR increase from 1.3 to 1.4 concerning as expected decrease with Vitamin K, will continue to monitor for further signs of fulminant liver failure. -Viral Hepatitis screen, though suspect symptoms secondary to alcohol abuse -Negative for Hep C and B, Hep A pending -Suspect RUQ pain due to capsular stretching of liver, will monitor for worsening, consider RUQ US to r/o cholecystitis if worsening. Macrocytic Anemia -Likely secondary to alcohol use -B12 level 1464, Folate level >20 Nausea and Vomiting -Controlled with PRN Zofran Hx Opioid Abuse -Continue Methadone 20mg QD Hypomagnesemia, Hyponatremia -Mag repleted -Expect improvement of hyponatremia with IVF and increased PO Hypophosphatemia -Reduction to 1.1 regardless of repletion day prior -Vitamin D level extremely low at 8 -Functional Excretion PO4 3.24%, low suspicion for renal phosphate wasting, suspect due to vitamin D deficiency -Repletion today with IV and PO phosphate of roughly 76mmol, patient expected requirement ~115mmol. -Recheck in AM Vitamin D Deficiency -Vitamin D level at 8. -Will start with weekly vitamin D 50,000 units x6-8 weeks -Also 2000 units Vitamin D daily Dispo: M/S Telemetry FEN: NSS 125ml/hr, Reg diet DVT: Hep 5000u TID Code: Full (2) Acute alcoholic hepatitis: (3) Alcoholic fatty liver: (4) Nausea & vomiting: (5) Opioid abuse: (6) Hyponatremia: (7) Hypomagnesemia: (8) Hypophosphatemia: Admission and Anticipated Discharge Date Admission Date: July 20, 2020 Supervising Physician Co-Signing Physician Notes I personally examined the patient and verified all rico points of history and exam, discussed case, and agree with decision making with Dr Rabago feeling better overall. less shaky. less belly pain. vitals noted nad heent nc at mmm breathing unlabored no accessory muscles good effort skin no rashes no pallor or icterus neuro no focal deficits abd soft nd mild RUQ tenderness no guarding no rebound no masses EtOH withdrawal - continue prn benzodiazepines/symptom triggered management - but appears to be improving nicely in this regard. discussed adjunct faculty for medical terminology cessa tion. narcotic withdrawal - better now that he's back on home dosing of methadone, this has improved nicely. alcoholic hepatitis - discriminant function still shows no role for steroids, continue to follow closely. screen for viral hepatitis for completeness, trial vitamin K didn't help but while INR and bili still worsening - fortunately only mildly so -- continue to follow. establish w GI. otherwise as above Subjective Patient evaluated at the bedside this morning. Noting that over all he feels improved today compared to yesterday. States that his abdominal pain had lessened to a 3/10 compared to the 5/10 yesterday. States the tremors have lessened slightly and are more in line with what he had been experiencing for the past 6 months. Notes that he is still interested in alcohol cessation and states he would want to try to do so "cold turkey." Review of Systems Constitutional: + body aches and + weakness; no fever and no chills Eyes: no photophobia and no worsening vision Ear, Nose, Mouth, Throat: no dizziness Respiratory: no cough, no dyspnea and no pain on inspiration Cardiovascular: no chest pain, no radiating jaw, neck or arm pain, no dyspnea on exertion and no palpitations Gastrointestinal: + abdominal pain and + excessive flatulence; no nausea and no vomiting Genitourinary: no dysuria Musculoskeletal: + myalgia, + muscle weakness and + body aches Neurologic: + tremor(s); no dizziness, no headache(s) and no confusion Psychiatric: + anxiety Physical Exam Constitutional: + ill appearing, + obese and cooperative; no acute distress Eyes: normal visual mitchell by confrontation, PERRL and EOM intact bilaterally; sclerae not anicteric and no photophobia ENMT: external ear and nose normal, oropharynx normal Mouth: + dental caries, + poor dentition and + chipped teeth Neck: trachea midline, no thyromegaly Respiratory: normal respiratory effort, lungs clear to auscultation Cardiovascular: Rate/Rhythm: regular rhythm and + tachycardic Heart Sounds: no murmur Gastrointestinal (Abdomen): Inspection/Auscultation: abdomen normal to inspection and normal bowel sounds; abdomen not distended Percussion/Palpation: + abdomen tender (TTP throughout, worse in the RUQ though improved) and abdomen soft; no guarding and abdomen not rigid Musculoskeletal: no cyanosis or clubbing, extremities motor strength 5/5 Skin: no rashes, warm and dry Neurologic: PERRL, EOMI, accommodation nl, no face palsy, no dysarthria Psychiatric: Orientation: alert and oriented x 3 Eye Contact: + fair eye contact Results & Data Results & Data ([facility]) Vital Signs (Past 12 Hours) Vital Signs Temp Pulse Pulse Resp BP Pulse Ox 07/22/20 07:32 37.0 C 106 H 16 133/76 90 07/22/20 02:47 36.3 C L 106 H 20 140/82 92 07/21/20 23:38 104 H 07/21/20 22:00 36.9 C 106 H 20 151/72 H 92 07/21/20 19:47 37.2 C 108 H 16 129/72 90 Resident Activity Tracking Resident Involvement: Resident Care Provided Care Provided: Adult Hospital Medicine (1) Nausea & vomiting Vomiting Intractability: non-intractable Vomiting type: unspecified Qualified Code(s): R11.2 - Nausea with vomiting, unspecified
[2020-07-22 08:56] LABS: Hematocrit (blood only) 33.9 % (42-52); Hemoglobin 11.8 g/dL (14.0-18.0); Mean Corpuscular Hemoglobin 37.5 pg (25-34); Mean Corpuscular Hgb Conc 34.8 g/dL (32-36); Mean Corpuscular Volume 107.6 fL (80-100); RDW Coefficient of Variation 17.5 % (11.5-14.5); RDW Standard Deviation 68.2 fL (36.4-46.3); Red Blood Count 3.15 M/uL (4.7-6.1); White Blood Count 5.27 K/uL (4.8-10.8)
[2020-07-22 09:09] LABS: INR 1.4 (0.9-1.1); Partial Thromboplastin Ratio 1.4; Partial Thromboplastin Time 40.2 Seconds (21.0-31.0); Prothrombin Time 14.3 Seconds (9.0-12.0)
[2020-07-22 09:23] LABS: Mean Platelet Volume 11.5 fL (7.4-10.4); Platelet Count 53 K/uL (130-400)
[2020-07-22 09:24] LABS: Basophils # (auto) 0.01 K/uL (0-0.2); Basophils % (auto) 0.2 %; Eosinophils # (auto) 0.03 K/uL (0-0.5); Eosinophils % (auto) 0.6 %; Immature Granulocytes # (auto) 0.03 K/uL (0.00-0.02); Immature Granulocytes % (auto) 0.6 %; Lymphocytes # (auto) 0.76 K/uL (1.2-3.4); Lymphocytes % (auto) 14.4 %; Monocytes # (auto) 0.38 K/uL (0.11-0.59); Monocytes % (auto) 7.2 %; Neutrophils # (auto) 4.06 K/uL (1.4-6.5); Target Cells 1+
[2020-07-22 09:32] LABS: Albumin Level 2.1 gm/dl (3.4-5.0); BUN Creatinine Ratio 3.8 (10-20); Calcium 8.4 mg/dl (8.5-10.1); Creatinine Clr Calc Pharmacy 156.6 ml/min; Est GFR (African American) 141.1; Est GFR (Non-African American) 121.7; Magnesium 2.2 mg/dl (1.8-2.4)
[2020-07-22 09:42] LABS: Albumin Globulin Ratio 0.4 (0.9-2); Bilirubin,Total 10.8 mg/dl (0.2-1); Globulin 4.9 gm/dl (2.5-4.0); Phosphorus 1.1 mg/dl (2.5-4.9)
[2020-07-22 09:54] LABS: Hepatitis B Surface Antigen Neg (Neg)
[2020-07-22 10:24] LABS: Hepatitis C IgG 13Yrs+Old_Rflx Neg (Neg)
[2020-07-22] MEDS ORDERED: POTASSIUM PHOSPHATE 15 MMOL in SODIUM CHLORIDE 0.9% 250 ML IV ONE (10:30)
[2020-07-22] MEDS: SODIUM CHLORIDE 0.9% 1000ML 1,000 ML IV SCH ×2 (10:38→18:30)
[2020-07-22] MEDS: POT PHOSPHATE MONOBASIC W/ SOD TAB PO SCH ×4 (10:41→20:25)
[2020-07-22] MEDS ORDERED: ERGOCALCIFEROL 50,000 UNITS 1250 MCG CAP PO SCH (12:30)
[2020-07-22] MEDS: CHOLECALCIFEROL 1,000 UNITS 25 MCG TAB PO SCH (12:41)
[2020-07-22 14:42] LABS: Methadone, Ur Metabolite 5350 ng/mL (<100)
--- NOTE | 2020-07-22 15:40 | Billing Data ---
Date of Service July 22, 2020 Coding Level of Care Code 87556 Subseq Hosp Care Lvl 3
[2020-07-23] MEDS: GABAPENTIN 600 MG TAB PO SCH ×2 (00:02→12:01)
[2020-07-23] MEDS: SODIUM CHLORIDE 0.9% 1000ML 1,000 ML IV SCH (02:17)
[2020-07-23] MEDS: METHADONE HCL 10 MG TAB PO SCH (06:31)
[2020-07-23 07:08] LABS: Hematocrit (blood only) 31.9 % (42-52); Mean Corpuscular Hemoglobin 36.8 pg (25-34); Mean Corpuscular Hgb Conc 34.5 g/dL (32-36); Mean Corpuscular Volume 106.7 fL (80-100); RDW Coefficient of Variation 17.5 % (11.5-14.5); RDW Standard Deviation 67.2 fL (36.4-46.3); Red Blood Count 2.99 M/uL (4.7-6.1)
[2020-07-23 07:10] LABS: Mean Platelet Volume 11.9 fL (7.4-10.4); Platelet Count 50 K/uL (130-400)
[2020-07-23 07:18] LABS: INR 1.6 (0.9-1.1); Partial Thromboplastin Ratio 1.4; Partial Thromboplastin Time 38.4 Seconds (21.0-31.0); Prothrombin Time 16.4 Seconds (9.0-12.0)
[2020-07-23 07:40] LABS: Basophils # (auto) 0.01 K/uL (0-0.2); Basophils % (auto) 0.2 %; Eosinophils # (auto) 0.04 K/uL (0-0.5); Eosinophils % (auto) 0.7 %; Immature Granulocytes # (auto) 0.04 K/uL (0.00-0.02); Immature Granulocytes % (auto) 0.7 %; Lymphocytes # (auto) 0.77 K/uL (1.2-3.4); Monocytes # (auto) 0.65 K/uL (0.11-0.59); Monocytes % (auto) 11.8 %; Neutrophils # (auto) 3.99 K/uL (1.4-6.5); Neutrophils % (auto) 72.6 %; Target Cells 2+
[2020-07-23] MEDS: THIAMINE HCL 100 MG TAB PO SCH (07:40)
[2020-07-23] MEDS: FOLIC ACID 1 MG TAB PO SCH (07:41)
[2020-07-23] MEDS: NICOTINE 21 MG/24 HR TDSY TD SCH (07:41)
[2020-07-23] MEDS: CHOLECALCIFEROL 1,000 UNITS 25 MCG TAB PO SCH (07:41)
[2020-07-23] MEDS: HEPARIN SOD 5,000 UNIT/0.5 ML VIAL SQ SCH (07:42)
[2020-07-23 07:54] LABS: Blood Urea Nitrogen 2 mg/dl (7-18); Carbon Dioxide 24 mmol/L (21-32); Chloride 101 mmol/L (98-107); Est GFR (African American) > 150.0; Potassium 3.4 mmol/L (3.5-5.1); Sodium 133 mmol/L (136-145)
[2020-07-23 07:55] LABS: Alanine Aminotransferase 62 U/L (12-78); Albumin Globulin Ratio 0.4 (0.9-2); Albumin Level 1.9 gm/dl (3.4-5.0); Alkaline Phosphatase 233 U/L (45-117); Aspartate Aminotransferase 224 U/L (15-37); BUN Creatinine Ratio 3.6 (10-20); Bilirubin,Total 10.3 mg/dl (0.2-1); Calcium 7.8 mg/dl (8.5-10.1); Creatinine Clr Calc Pharmacy 201.9 ml/min; Globulin 4.6 gm/dl (2.5-4.0); Glucose 88 mg/dl (70-99); Magnesium 1.7 mg/dl (1.8-2.4); Phosphorus 2.2 mg/dl (2.5-4.9); Total Protein 6.5 gm/dl (6.4-8.2)
[2020-07-23] MEDS: POT PHOSPHATE MONOBASIC W/ SOD TAB PO SCH ×2 (09:22→12:00)
[2020-07-23] MEDS: MAGNESIUM SULFATE / D5W 1 GM/100 ML BAG IV SCH ×2 (09:23→11:13)
--- NOTE | 2020-07-23 10:28 | Gastrointestinal Consultation ---
Date of Consultation July 23, 2020 Assessment & Plan (1) Acute alcoholic hepatitis: Hep C negative. Other infectious hepatitis studies pending. Last drink was 07/20. -Continue current therapy -DF does not presently warrant steroid use -Monitor INR q 12 hours. If worsening, consider transfer to liver center with hepatology available. -Continue to trend LFTs. -Discussed importance of alcohol cessation -Will need outpatient hepatology evaluation (2) Alcoholic fatty liver: No evidence of cirrhosis on liver imaging, but does indicate severe hepatic steatosis. Discussed the difference with patient. -Recommend alcohol cessation -Consider alcohol rehab -Recommend weight loss of a minimum of 10% in the next 1 year -Encourage exercise & healthy diet Supervising Physician Co-Signing Physician Notes Agree with ARIADNE Garner Abd: Soft, NT, ND, +BS Continue current therapy Recommend complete abstinence from alcohol Consider home health care social worker eval for placement of inpatient rehab if he is agreeable Monitor for signs of withdrawal and treat per alcohol withdrawal protocol as needed. History of Present Illness Reason for Consultation: Alcoholic Hepatitis Attending Physician: Larissa Pizarro DO History of Present Illness Patient is a 35 yo male hospitalized with alcohol withdrawal and alcoholic hepatitis. He has a past medical history of significant opioid and alcohol abuse. Last alcohol intake on 07/20. T Bili 10.3. AST 224, ALT 62, Alk phos 233. INR bumped to 1.6. Discriminant function has ranged from 21-30. Abdominal imaging shows no evidence of cirrhosis, but does indicate severe hepatic steatosis. Patient is overweight. He reports to me that he is feeling better than when he presented to the hospital. He acknowledges understanding of the severity of his condition and the importance of alcohol cessation. He denies any physical GI complaints at present. No pertinent family history. Allergies Allergy/AdvReac Type Severity Reaction Status Date / Time No Known Allergies Allergy Unverified 07/20/20 20:09 Home Medications Medication Instructions Recorded Confirmed Type methadone 40 mg PO DAILY 07/20/20 07/20/20 History Patient History Medical History (Updated 07/21/20 @ 18:19 by Shiv Rabago DO) Hyponatremia Hypoxia Multiple thermal rockwell Pneumonia Vomiting Social History Smoking Status: Current every day smoker Tobacco Type: Cigarettes Cigarettes Per Day: 25; Do You Dip or Chew Tobacco: No; Hx Alcohol Use: Yes Hx Substance Use: Yes Last Used Substance Other:: yesterday Substance Use Type Other:: methadone Preferred Language: Arabic Communication Ability: Effective Wood Engraver Required: No Beliefs That Will Affect Care: None Current Living Situation: Family Other Information That Helps Us Care for You: No Feels Safe at Home: Yes Safety Concerns: Feels Safe At This Time Assistive Devices: None Review of Systems Constitutional: no weight loss Eyes: no problem reported Respiratory: no cough and no dyspnea Cardiovascular: no chest pain Gastrointestinal: no abdominal pain, no diarrhea/loose stools and no blood in stools Musculoskeletal: no problem reported Neurologic: tremor Psychiatric: + substance abuse Hematologic / Lymphatic: no unexplained weight loss Physical Exam Constitutional: well developed and well nourished; no acute distress Eyes: no conjunctival abnormality Neck: normal visual inspection Respiratory: normal respiratory effort Cardiovascular: Extremities: no edema Gastrointestinal (Abdomen): Inspection/Auscultation: abdomen normal to inspection Percussion/Palpation: no ascites Musculoskeletal: Head/Neck/Chest: normocephalic Skin: + ecchymosis (L arm) Neurologic: Motor/Sensory: + tremor Psychiatric: A+Ox3, euthymic affect Results & Data ([facility]) Vital Signs (Past 12 Hours) Vital Signs Temp Pulse Pulse Resp BP Pulse Ox 07/23/20 08:02 36.7 C 95 H 20 133/80 92 07/23/20 07:30 102 H 07/23/20 03:28 37 C 104 H 18 143/76 H 92 07/23/20 00:41 102 H PG Care Time/CCT Total # of Minutes Spent Total Time Spent with Patient: Total time spent is greater than 50% in coordination of care (as documented) at patient's floor/unit and/or counseling patient: Coding Level of Care Code 41193 Office/OBS Consult Lvl 4 Diagnoses Acute alcoholic hepatitis K70.10 Alcoholic fatty liver K70.0
--- NOTE | 2020-07-23 13:44 | Discharge Summary ---
Date of Service July 23, 2020 Admission HPI Per Admitting Provider The patient is a 35-year-old male with past medical history including opiate abuse, acute alcoholic hepatitis, hyponatremia, pneumonia and multiple thermal rockwell. He presents to the emergency department with concerns regarding going through withdrawal as noted above, and feels he needs to be admitted into the hospital. His last alcohol intake was around 3:30 in the afternoon on 07/20, and his last food intake was at breakfast on 07/19 Admission Exam Per Admitting Provider The patient is awake, alert and oriented 3, appears disheveled, normocephalic and atraumatic, lying in bed and in no acute distress. HEENT--PERRL, EOMI, mucous membranes and oropharynx dry. Neck--supple. No JVD. No bruits. Thyroid normal, trachea midline, no a denopathy. Heart--normal S1 and S2. No murmurs, rubs or gallops. Lungs--clear bilaterally, no respiratory distress, no accessory muscle use. Abdomen--normal bowel sounds and soft. Nontender. Nondistended. Extremities--no cyanosis or clubbing. No edema. Dermatologic--normal skin turgor, normal color, no abnormal lymph nodes, no rash. Neurologic--cranial nerves II through XII grossly intact. Rheumatologic--normal range of motion. Psychiatric--appears mildly depressed Principal Diagnosis Alcohol Hepatitis Discharge Exam Constitutional well developed, well nourished and cooperative; no acute distress Eyes + anicteric sclerae ENMT external ear and nose normal, oropharynx normal Neck normal visual inspection and trachea midline Respiratory normal respiratory effort, lungs clear to auscultation Cardiovascular RRR, no murmur, no edema Heart Sounds: normal S1 and normal S2 Gastrointestinal (Abdomen) normal bowel sounds, soft, nontender, no hepatosplenomegaly Skin no rashes, warm and dry Neurologic Motor/Sensory: + tremor (left hand) Psychiatric Orientation: alert and oriented x 3 Affect: + anxious affect Discharge Data Allergies Allergy/AdvReac Type Severity Reaction Status Date / Time No Known Allergies Allergy Unverified 07/20/20 20:09 Consultations 07/20/20 18:33 ED Decision to Admit Stat 07/20/20 19:53 Consult Case Management - Discharge Planning Routine 07/23/20 08:00 Consult Gastroenterology Routine Ordered Studies 11/27/20 16:23 CT abd pelvis wo con Stat Hospital Course (1) Alcohol withdrawal: Patient is a 35 year old male with PMHx Alcohol use disorder who was admitted for alcohol withdrawal. He was placed on the AWSS protocol with gabapentin taper, and required no doses of benzodiazepines. He was diagnosed with alcoholic hepatitis during this admission and gastroenterology saw him prior to discharge. Alcohol Withdrawal - placed on AWSS protocol with Gabapentin; required no doses of Ativan - treated with thiamine and folate - last drink was 72 hours prior to hospital discharge - Patient uninterested in psychiatric services at this time, notes he would prefer alcohol cessation "[facility] [place]." - recommend patient engage in local AA program for continued support/to maintain sobriety Acute Alcoholic Hepatitis and Alcoholic Fatty Liver -CT Ab/Pelv with hepatomegaly and severe hepatic steatosis -Discriminant function at 18-->21.4, no role for steroids -MELD score from 13-->25, which carries a 20% 3 month mortality -INR increased from 1.3 to 1.4, despite vitamin K given, suggestive of poor intrinsic function -Viral Hepatitis screen, though suspect symptoms secondary to alcohol abuse -Negative for Hep C and B, Hep A pending at the time of discharge - Suspect RUQ pain due to capsular stretching of liver - GI consulted, follow up appointment arranged for discharge - Etoh cessation strongly recommended Outpatient items to do: follow up on Hepatitis A test Macrocytic Anemia - Likely secondary to alcohol use (suppressive effects on bone marrow) - Hgb 11, MCV 100 - B12 level 1464, Folate level >20 - recommend daily multivitamin Outpatient items to do: Repeat CBC in 4 weeks Hx Opioid Abuse - Continue Methadone 20mg QD Hypomagnesemia - level low on admission - patient was repleted - suspect secondary to poor dietary intake - recommend daily multivitamin Hypophosphatemia - phos levels low throughout admission - Functional Excretion PO4 3.24%, low suspicion for renal phosphate wasting - suspect due to vitamin D deficiency - patient was repleted prior to discharge - recommend daily multivitamin Vitamin D Deficiency -Vitamin D level low at 8 -continue weekly vitamin D3 50,000 IU x6-8 weeks -continue vitamin D2 2,000 IU daily Outpatient items to do: recheck vitamin D level in 3-4 months (2) Acute alcoholic hepatitis: (3) Alcoholic fatty liver: (4) Nausea & vomiting: (5) Opioid abuse: (6) Hyponatremia: (7) Hypomagnesemia: (8) Hypophosphatemia: Total Time Total Time Spent Total Time Spent (In Minutes): see attending attestation Discharge Plan Discharge Items Patient Disposition: Home - Self-Care Reason For Visit: ALCOHOL WITHDRAWAL Discharge Diagnosis: Alcoholic Hepatitis Activity: Resume your previous activity Non-emergency contact: Primary Care Provider Call non-emergency contact if: your symptoms worsen Follow-up/Referrals: Chris Hampton, [Physician] - 07/26/20 11:20 am (Your appointment is with isaias Garner. If you need to change this appointment, please call [phone].) PCP,NO [Primary Care Provider] - Diet: Regular Addtl Attending Provider Instructions: You were hospitalized at [facility] for management of alcohol withdrawal. Fortunately, you had no complications from the withdrawal process. Ideally, you should have continued alcohol rehab, perhaps with "Alcoholics Anonymous" as an outpatient. Please take Gabapentin, 600mg, once, tomorrow 07/24/20 to finish your medication taper. While in the hospital, we found your liver to be very inflamed, likely from alcohol use. We highly recommend against any further alcohol consumption. We asked gastroenterology (GI specialists) to see you in the hospital. A follow up visit is being arranged with Dr. Hampton at [facility] who is a GI specialist. Please attend this appointment Your vitamin D level was found to be low while you were in the hospital. Please continue to take 50,000 IU daily of vitamin D3 and 2,000 IU daily of vitamin D2 as a supplement for the next 6-8 weeks. Your primary care physician can recheck your vitamin D level as an outpatient. Please continue to take a daily multivitamin. We recommend you follow up with your primary care physician within 1 week of hospital discharge. Please call and schedule an appointment right away. Pending Studies at Discharge: Yes Studies:: Hepatitis A Stand-Alone Forms: My [facility], Smoking Cessation Medications and DC Order Prescriptions: New gabapentin 600 mg Tablet 600 mg PO Q24H Qty: 1 RF: 0 cholecalciferol (vitamin D3) 25 mcg (1,000 unit) Capsule 2,000 unit PO QAM Qty: 30 RF: 0 ergocalciferol (vitamin D2) 1,250 mcg (50,000 unit) Capsule 50,000 unit PO DAILY Qty: 30 RF: 0 Continued methadone 10 mg/mL Concentrate 40 mg PO DAILY RF: 0 Discharge Orders: Discharge Order (Routine); Ordered 07/23/20 Ordered By: Toya Nuno Admission Data Admit Date/Time: 07/20/20 19:50 Attending Provider: Larissa Pizarro Admit Provider: Frank Anthony Primary Care Provider: PCP,NO Other Providers: Timoteo Arriola ; Chris Hampton Other Interventions: Discharge Summary Assessment (RN) Last Done: 07/23/20 15:59 Supervising Physician Co-Signing Physician Notes Patient seen and examined with PGY-2 Dr. Nuno. Agree with hospital course, exam findings, asessment and plan of care as outlined. In brief, Ruslan is a 35 year old male with history of alcohol use disorder admitted with acute alcohol withdrawal and alcohol induced hepatitis. Feeling well today. Has not required Ativan. Nervous about going home more so because he thinks he mother will be angry with him. 1. Alcohol withdrawal. AWSS protocol with gabapentin and PRN Ativan. Continue IVFs. Offered drug and alcohol services, but declined. He is aware of these services available to him as an outpatient. 2. Acute alcoholic hepatitis, fatty liver. CT with hepatomegaly, severe hepatic steatosis. MELD score 25. Viral hepatitis screening is neg for Hep C and hep B. Hepatitis A pending. Follow up with GI as an outpatient. 3. Macrocytic anemia. Likely secondary to alcohol use. B12 and folate within normal. 4. Thrombocytopenia. Plt count in the 50s. 5. Elevated INR at 1.4 Trial of Vitamin K did not improve INR. Likely secondary to hepatic dysfunction. 6. History of opioid use disorder. Continue home methadone 20mg. 7. Electrolyte derangement (hyponatremia, hypomg, hypophos). Repleting. 8. Vitamin D deficiency. Vitamin D level 8. On high dose vitamin D weekly. Dispo: discharge home today. Will follow up with PCP and GI in 1-2 weeks. I personally spent 25 minutes discharge planning for this patient. Resident Activity Tracking Resident Involvement: Resident Care Provided Care Provided: Adult Hospital Medicine
[2020-07-24 04:23] LABS: Hepatitis A Antibody IgM NON-REACTIVE (NON-REACTIVE); Hepatitis B Core Antibody IgM NON-REACTIVE (NON-REACTIVE)
[2020-07-24] MEDS ORDERED: GABAPENTIN 600 MG TAB PO SCH (12:00)
== END 2020-07-23 17:00 | disposition home or self-care (01) | DRG 897 ==
LOC: ED 15:18 → 2W 19:50 → SUATTDRO 19:50 → 2W 22:36

== ENCOUNTER 2020-08-12 19:23 | Inpatient (IN) ==
--- NOTE | 2020-08-12 19:56 | Emergency Department Note ---
Impression & Plan SOB (shortness of breath), Edema, Fluid overload, Liver failure ED Provider Note NAME: SAAD RAE AGE: 35 SEX: M : 1985 ARRIVES VIA: Walk-In INFORMANT: [Patient] ED PROVIDER(S): [Landon Dowell MD] CHIEF COMPLAINT: Edema HISTORY OF PRESENT ILLNESS: The patient is a 35-year-old male presents with 1 week of increasing leg edema and now scrotal edema. His abdomen is also swollen. He feels mildly short of breath. There has been no fever or cough, he is still able to urinate. No diarrhea. The patient states that he was diagnosed with alcoholic hepatitis around . He was in our hospital for this diagnosis. He has not had any alcohol to drink since . The patient is not on a diuretic. He states he has had some swelling of his leg s from time to time but nothing this severe. He is jaundiced but states he has been jaundiced since his diagnosis of liver disease around . REVIEW OF SYSTEMS: See HPI for pertinent positives and negatives. A total of ten systems were reviewed and were otherwise negative. PMHx/PSHx: See Below SOCIAL HISTORY: See Below. PHYSICAL EXAM: GENERAL: Patient is in no acute distress. HEENT: No acute trauma, normocephalic atraumatic, mucous membranes moist, no nasal congestion, moderate scleral icterus. NECK: No stridor, no adenopathy, no meningismus, trachea is midline. LUNGS: Clear to auscultation bilaterally, no wheeze, no rhonchi, breath sounds equal. HEART: Mildly tachycardic, regular rhythm, no murmurs. ABDOMEN: Soft, nontender, bowel sounds positive, no hernias, no peritonitis. Abdominal distention noted. EXTREMITIES: No cyanosis, significant bilateral pedal edema, full range of motion of all the joints without pain or difficulty, no signs for acute trauma. NEUROLOGIC: Oriented x 3, no acute motor or sensory deficits, no focal weakness. SKIN: No rash, moderate jaundice, no diaphoresis. Groin: He does have moderate scrotal edema. No erythema. DIFFERENTIAL DIAGNOSIS: Infection, dehydration, metabolic abnormality, hypo/hyperglycemia, electrolyte disturbance, anemia, fluid overload, DVT, liver failure, ascites, renal failure, hypoxia, cardiac sources, intracerebral event, toxicologic, neurologic, as well as other pathologies. EMERGENCY DEPARTMENT COURSE/PROCEDURES: ECG: Indication was shortness of breath. The ECG shows a normal sinus rhythm with a rate of 99. There is baseline artifact. The QTc is 477. There is no ST elevation, no PVCs. Continuous Cardiac Monitoring: An order was placed for continuous cardiac monitoring. The monitor shows a rate of 99 with normal sinus rhythm. MEDICAL DECISION MAKING: There is no leukocytosis. The patient does have a mild anemia with a hemoglobin of 11.1. The patient has a history of anemia. There is a normal platelet count. No coagulopathy. No kidney failure or significant electrolyte abn ormality. There were elevations to the liver enzymes, bilirubin was 8. These elevations have been documented before. Ammonia level was not elevated. Albumin was quite low at 1.6. Patient appeared to be in a euthyroid state. Urinalysis did not show any evidence for infection. Covid testing was negative. Chest film did not show pneumonia or CHF. Bilateral lower extremity ultrasound did not show any evidence for DVT. The patient is fluid overloaded. He is in liver failure. I suspect he has ascites in addition to generalized body edema. The patient was given IV Lasix 40 mg. The patient has diuresed. He is currently resting in bed. Given his edema, given his liver failure, given his jaundice, given his tachycardia and complaints of dyspnea, I do think a hospital stay is warranted. He will require diuresis and possibly paracentesis. I did speak to the patient and case management. The on-call hospitalist was consulted. Past Med/Surg History Medical History Alcoholic fatty liver History of opioid abuse Clean x 8 years. On Methadone Surgical History (Updated 08/12/20 @ 23:59 by Salma Perez DO) No significant past surgical history Family History (Updated 08/13/20 @ 00:00 by Salma Perez DO) Other Parkinson disease Social History Smoking Status: Never smoker Tobacco Type: Cigarettes Cigarettes Per Day: 25; Hx Alcohol Use: Yes Alcohol type: hard liquor Alcohol Intake Frequency: 4 or More x per/Week Hx Substance Use: Yes Last Used Substance Other:: yesterday Substance Use Type Other:: methadone Preferred Language: Urdu Communication Ability: Effective Provider Enrollment Specialist Required: No Beliefs That Will Affect Care: None Current Living Situation: Family Feels Safe at Home: Yes Assistive Devices: None Allergies Allergies Allergy/AdvReac Type Severity Reaction Status Date / Time No Known Allergies Allergy Verified 08/12/20 20:12 Home Meds Home Medications Medication Instructions Recorded Confirmed ibuprofen [Advil] 400 mg PO Q6H PRN 08/12/20 08/12/20 methadone 20 mg PO DAILY 08/12/20 08/12/20 multivitamin 1 tab PO DAILY 08/12/20 08/12/20 Previous Rx's Medication Instructions Recorded pantoprazole 40 mg tablet,delayed 40 mg PO DAILY #30 tab 07/26/20 release Results & Data (ED) Vital Signs Vital Signs - 24 hr 08/12/20 19:24 08/12/20 19:25 08/12/20 19:39 Temperature 36.8 C Temperature Source Temporal Artery Scan Pulse Rate 110 H 96 H Pulse Rate from SpO2 Sensor 97 H Pulse Rhythm Regular Pulse Strength Normal Respiratory Rate 20 22 15 Respiratory Effort / Characteristics Normal for Patient Non-Labored Spontaneous Respiratory Depth Normal Blood Pressure 127/77 130/75 Blood Pressure Mean 93 92 Pulse Oximetry 98 99 99 Oxygen Delivery Method Room Air Room Air Room Air Sepsis Recent Fever Within 48 Hours No Sepsis New/Unexplained Change in Mental Status N/A Sepsis Action Taken by Nursing No Action Required 08/12/20 19:44 08/12/20 19:50 08/12/20 20:00 Temperature Temperature Source Pulse Rate 101 H 102 H 109 H Pulse Rate from SpO2 Sensor 101 H 100 H Pulse Rhythm Regular Pulse Strength Respiratory Rate 20 20 18 Respiratory Effort / Characteristics Respiratory Depth Blood Pressure 123/78 Blood Pressure Mean 88 Pulse Oximetry 98 98 98 Oxygen Delivery Method Room Air Room Air Room Air Sepsis Recent Fever Within 48 Hours Sepsis New/Unexplained Change in Mental Status Sepsis Action Taken by Nursing 08/12/20 20:01 08/12/20 20:30 08/12/20 20:31 Temperature Temperature Source Pulse Rate 103 H 100 H 100 H Pulse Rate from SpO2 Sensor 104 H 100 H 100 H Pulse Rhythm Pulse Strength Respiratory Rate 21 17 31 H Respiratory Effort / Characteristics Respiratory Depth Blood Pressure 125/74 Blood Pressure Mean 88 Pulse Oximetry 99 99 97 Oxygen Delivery Method Room Air Room Air Room Air Sepsis Recent Fever Within 48 Hours Sepsis New/Unexplained Change in Mental Status Sepsis Action Taken by Nursing 08/12/20 21:29 08/12/20 21:30 08/12/20 21:31 Temperature Temperature Source Pulse Rate 100 H 98 H 98 H Pulse Rate from SpO2 Sensor 99 H 98 H 98 H Pulse Rhythm Pulse Strength Respiratory Rate 21 16 18 Respiratory Effort / Characteristics Respiratory Depth Blood Pressure 126/74 Blood Pressure Mean 92 Pulse Oximetry 97 97 96 Oxygen Delivery Method Room Air Room Air Room Air Sepsis Recent Fever Within 48 Hours Sepsis New/Unexplained Change in Mental Status Sepsis Action Taken by Nursing 08/12/20 22:00 08/12/20 22:01 08/12/20 22:30 Temperature Temperature Source Pulse Rate 100 H 101 H 100 H Pulse Rate from SpO2 Sensor 101 H 102 H 99 H Pulse Rhythm Pulse Strength Respiratory Rate 20 23 19 Respiratory Effort / Characteristics Respiratory Depth Blood Pressure 135/81 124/70 Blood Pressure Mean 91 84 Pulse Oximetry 97 98 96 Oxygen Delivery Method Room Air Room Air Room Air Sepsis Recent Fever Within 48 Hours Sepsis New/Unexplained Change in Mental Status Sepsis Action Taken by Nursing 08/12/20 22:31 08/12/20 23:00 08/12/20 23:01 Temperature Temperature Source Pulse Rate 100 H 100 H 105 H Pulse Rate from SpO2 Sensor 102 H 101 H 103 H Pulse Rhythm Pulse Strength Respiratory Rate 17 16 21 Respiratory Effort / Characteristics Respiratory Depth Blood Pressure 121/70 Blood Pressure Mean 91 Pulse Oximetry 95 96 97 Oxygen Delivery Method Room Air Sepsis Recent Fever Within 48 Hours Sepsis New/Unexplained Change in Mental Status Sepsis Action Taken by Nursing 08/12/20 23:30 08/12/20 23:31 08/13/20 00:00 Temperature Temperature Source Pulse Rate 103 H 102 H 102 H Pulse Rate from SpO2 Sensor 104 H 103 H 101 H Pulse Rhythm Pulse Strength Respiratory Rate 20 22 18 Respiratory Effort / Characteristics Respiratory Depth Blood Pressure 129/78 123/67 Blood Pressure Mean 89 83 Pulse Oximetry 96 96 95 Oxygen Delivery Method Sepsis Recent Fever Within 48 Hours Sepsis New/Unexplained Change in Mental Status Sepsis Action Taken by Nursing 08/13/20 00:01 08/13/20 00:23 Temperature Temperature Source Pulse Rate 102 H Pulse Rate from SpO2 Sensor 102 H Pulse Rhythm Pulse Strength Respiratory Rate 22 Respiratory Effort / Characteristics Respiratory Depth Blood Pressure Blood Pressure Mean Pulse Oximetry 95 Oxygen Delivery Method Room Air Sepsis Recent Fever Within 48 Hours Sepsis New/Unexplained Change in Mental Status Sepsis Action Taken by [facility] Medications Current Medication List: was personally reviewed by ar Laboratory Data Attestation: I reviewed the patient's lab results. Result diagrams: 08/12/20 20:10 08/12/20 20:10 Lab Results 08/12/20 08/12/20 08/12/20 Range/Units 20:10 20:10 20:10 WBC 8.82 (4.8-10.8) K/uL RBC 3.11 L (4.7-6.1) M/uL Hgb 11.1 L (14.0-18.0) g/dL Hct 32.6 L (42-52) % MCV 104.8 H (80-100) fL MCH 35.7 H (25-34) pg MCHC 34.0 (32-36) g/dL RDW Std Deviation 62.3 H (36.4-46.3) fL RDW Coeff of Lenora 16.6 H (11.5-14.5) % Plt Count 266 (130-400) K/uL MPV 10.1 (7.4-10.4) fL Immature Gran % (Auto) 0.5 % Neut % (Auto) 56.6 % Lymph % (Auto) 27.7 % [place] % (Auto) 11.8 % Eos % (Auto) 2.6 % Baso % (Auto) 0.8 % Neut # (Auto) 5.00 (1.4-6.5) K/uL Lymph # (Auto) 2.44 (1.2-3.4) K/uL [place] # (Auto) 1.04 H (0.11-0.59) K/uL Eos # (Auto) 0.23 (0-0.5) K/uL Baso # (Auto) 0.07 (0-0.2) K/uL Immature Gran # (Auto) 0.04 H (0.00-0.02) K/uL PT 12.0 (9.0-12.0) Seconds INR 1.1 (0.9-1.1) APTT 27.5 (21.0-31.0) Seconds PTT Ratio 1.0 Sodium 135 L (136-145) mmol/L Potassium 3.7 (3.5-5.1) mmol/L Chloride 103 (98-107) mmol/L Carbon Dioxide 24 (21-32) mmol/L Anion Gap 8.0 (3-11) BUN 6 L (7-18) mg/dl Creatinine 0.57 L (0.6-1.4) mg/dl Est Cr Clr Drug Dosing 213.9 ml/min Est GFR ( Amer) > 150.0 Est GFR (Non-Af Amer) 134.0 BUN/Creatinine Ratio 10.8 (10-20) Glucose 82 (70-99) mg/dl Calcium 8.1 L (8.5-10.1) mg/dl Magnesium 2.1 (1.8-2.4) mg/dl Total Bilirubin 8.0 H (0.2-1) mg/dl AST 224 H (15-37) U/L ALT 61 (12-78) U/L Alkaline Phosphatase 248 H (45-117) U/L Ammonia (11-32) umol/L Total Creatine Kinase 22 L (39-308) U/L Troponin I < 0.015 (0-0.045) ng/ml Total Protein 6.9 (6.4-8.2) gm/dl Albumin 1.6 L (3.4-5.0) gm/dl Globulin 5.3 H (2.5-4.0) gm/dl Albumin/Globulin Ratio 0.3 L (0.9-2) TSH 3.860 (0.300-4.500) uIu/ml Urine Color Urine Appearance (Clear) Urine pH (4.5-7.5) Ur Specific [place] (1.000-1.030) Urine Protein (Negative) Urine Glucose (UA) (Negative) Urine Ketones (Negative) Urine Blood (Negative) Urine Nitrite (Negative) Urine Bilirubin (Negative) Urine Urobilinogen (Negative) Ur Leukocyte Esterase (Negative) Urine WBC (Auto) (0-5) /hpf Urine RBC (Auto) (0-4) /hpf U Hyaline Cast (Auto) (0-5) /lpf U Epithel Cells (Auto) (0-5) /lpf Urine Bacteria (Auto) (Negative) SARS-CoV-2 Ag (Rapid) (Negative) 08/12/20 08/12/20 08/12/20 Range/Units 20:10 20:35 22:49 WBC (4.8-10.8) K/uL RBC (4.7-6.1) M/uL Hgb (14.0-18.0) g/dL Hct (42-52) % MCV (80-100) fL MCH (25-34) pg MCHC (32-36) g/dL RDW Std Deviation (36.4-46.3) fL RDW Coeff of [place]ora (11.5-14.5) % Plt Count (130-400) K/uL MPV (7.4-10.4) fL Immature Gran % (Auto) % Neut % (Auto) % Lymph % (Auto) % [place] % (Auto) % Eos % (Auto) % Baso % (Auto) % Neut # (Auto) (1.4-6.5) K/uL Lymph # (Auto) (1.2-3.4) K/uL [place] # (Auto) (0.11-0.59) K/uL Eos # (Auto) (0-0.5) K/uL Baso # (Auto) (0-0.2) K/uL Immature Gran # (Auto) (0.00-0.02) K/uL PT (9.0-12.0) Seconds INR (0.9-1.1) APTT (21.0-31.0) Seconds PTT Ratio Sodium (136-145) mmol/L Potassium (3.5-5.1) mmol/L Chloride (98-107) mmol/L Carbon Dioxide (21-32) mmol/L Anion Gap (3-11) BUN (7-18) mg/dl Creatinine (0.6-1.4) mg/dl Est Cr Clr Drug Dosing ml/min Est GFR ( Amer) Est GFR (Non-Af Amer) BUN/Creatinine Ratio (10-20) Glucose (70-99) mg/dl Calcium (8.5-10.1) mg/dl Magnesium (1.8-2.4) mg/dl Total Bilirubin (0.2-1) mg/dl AST (15-37) U/L ALT (12-78) U/L Alkaline Phosphatase (45-117) U/L Ammonia < 10.0 L (11-32) umol/L Total Creatine Kinase (39-308) U/L Troponin I (0-0.045) ng/ml Total Protein (6.4-8.2) gm/dl Albumin (3.4-5.0) gm/dl Globulin (2.5-4.0) gm/dl Albumin/Globulin Ratio (0.9-2) TSH (0.300-4.500) uIu/ml Urine Color Dark Yellow Urine Appearance Clear (Clear) Urine pH 6.0 (4.5-7.5) Ur Specific [place] 1.023 (1.000-1.030) Urine Protein Trace H (Negative) Urine Glucose (UA) Negative (Negative) Urine Ketones Negative (Negative) Urine Blood Negative (Negative) Urine Nitrite Positive A (Negative) Urine Bilirubin 3+ H (Negative) Urine Urobilinogen Positive H (Negative) Ur Leukocyte Esterase 1+ H (Negative) Urine WBC (Auto) 1-5 (0-5) /hpf Urine RBC (Auto) 0-4 (0-4) /hpf U Hyaline Cast (Auto) 1-5 (0-5) /lpf U Epithel Cells (Auto) 0-5 (0-5) /lpf Urine Bacteria (Auto) Negative (Negative) SARS-CoV-2 Ag (Rapid) Negative (Negative) Administered Medications Discontinued Medications Furosemide (Furosemide 40 Mg/4 Ml Vial) 40 mg IV NOW STA Stop: 08/12/20 21:24 Last Admin: 08/12/20 21:41 Dose: 40 mg Documented by: [id number] Imaging Data Attestation: I personally reviewed and interpreted this imaging study as follows: My Impression: Chest x-ray: There is no pneumonia or CHF. No pneumothorax. I see no free air. Radiologist's Impression: Bilateral lower extremity ultrasound: No DVT. There was edema to both lower extremities. Discharge Plan Visit Data Chief Complaint: Swelling/Edema to Extremity Stated Complaint: LEGS, ABDOMEN, AND GROIN SWOLLEN ED Provider: Landon Dowell Discharge Problem: SOB (shortness of breath), Edema, Fluid overload, Liver failure Patient Disposition: Admitted As Inpatient Condition: Fair Discharge Instructions Interventions: ED Discharge Assessment Last Done: 08/13/20 00:23 Forms Stand Alone Forms: My [facility] [employer] Prescriptions Prescriptions: No Action pantoprazole 40 mg tablet,delayed release (DR/EC) 40 mg PO DAILY Qty: 30 RF: 11 multivitamin Tablet 1 tab PO DAILY RF: 0 methadone 10 mg Tablet 20 mg PO DAILY RF: 0 ibuprofen [Advil] 200 mg Tablet 400 mg PO Q6H PRN (Reason: Pain) RF: 0 Referrals Referrals: Albin Morales MD [Primary Care Provider] - Discharge Problem: Edema Qualifiers: Edema type: unspecified Qualified Code(s): R60.9 - Edema, unspecified Fluid overload Qualifiers: Hypervolemia type: unspecified Qualified Code(s): E87.70 - Fluid overload, unspecified Liver failure Qualifiers: Liver failure chronicity: acute Hepatic coma status: without hepatic coma Qualified Code(s): K72.00 - Acute and subacute hepatic failure without coma
[2020-08-12 20:36] LABS: Basophils # (auto) 0.07 K/uL (0-0.2); Basophils % (auto) 0.8 %; Eosinophils # (auto) 0.23 K/uL (0-0.5); Eosinophils % (auto) 2.6 %; Hematocrit (blood only) 32.6 % (42-52); Hemoglobin 11.1 g/dL (14.0-18.0); Immature Granulocytes # (auto) 0.04 K/uL (0.00-0.02); Immature Granulocytes % (auto) 0.5 %; Lymphocytes # (auto) 2.44 K/uL (1.2-3.4); Lymphocytes % (auto) 27.7 %; Mean Corpuscular Hemoglobin 35.7 pg (25-34); Mean Corpuscular Volume 104.8 fL (80-100); Mean Platelet Volume 10.1 fL (7.4-10.4); Monocytes # (auto) 1.04 K/uL (0.11-0.59); Monocytes % (auto) 11.8 %; Neutrophils % (auto) 56.6 %; Platelet Count 266 K/uL (130-400); RDW Coefficient of Variation 16.6 % (11.5-14.5); RDW Standard Deviation 62.3 fL (36.4-46.3); Red Blood Count 3.11 M/uL (4.7-6.1); White Blood Count 8.82 K/uL (4.8-10.8)
[2020-08-12 20:48] LABS: Appearance Urine Clear (Clear); Bacteria Urine Automated Negative (Negative); Blood Urine Negative (Negative); Color Urine Dark Yellow; Epithelial Cell Urine Auto 0-5 /lpf (0-5); Glucose Urine UA Negative (Negative); Ketones Urine Negative (Negative); Leukocyte Esterase Urine 1+ (Negative); Nitrite Urine Positive (Negative); Protein Urine Trace (Negative); RBC Urine Automated 0-4 /hpf (0-4); Specific Gravity Urine 1.023 (1.000-1.030); Urobilinogen Urine Positive (Negative)
[2020-08-12 20:52] LABS: INR 1.1 (0.9-1.1); Partial Thromboplastin Time 27.5 Seconds (21.0-31.0)
[2020-08-12 20:53] LABS: Bilirubin Urine 3+ (Negative)
[2020-08-12 20:54] LABS: Ictotest Urine Positive (Negative)
[2020-08-12 20:59] LABS: Alanine Aminotransferase 61 U/L (12-78); Albumin Level 1.6 gm/dl (3.4-5.0); Aspartate Aminotransferase 224 U/L (15-37); BUN Creatinine Ratio 10.8 (10-20); Blood Urea Nitrogen 6 mg/dl (7-18); Calcium 8.1 mg/dl (8.5-10.1); Carbon Dioxide 24 mmol/L (21-32); Chloride 103 mmol/L (98-107); Creatinine Clr Calc Pharmacy 213.9 ml/min; Est GFR (African American) > 150.0; Glucose 82 mg/dl (70-99); Magnesium 2.1 mg/dl (1.8-2.4); Potassium 3.7 mmol/L (3.5-5.1); Sodium 135 mmol/L (136-145)
[2020-08-12 21:07] LABS: Albumin Globulin Ratio 0.3 (0.9-2); Alkaline Phosphatase 248 U/L (45-117); Creatine Kinase 22 U/L (39-308); Globulin 5.3 gm/dl (2.5-4.0); Total Protein 6.9 gm/dl (6.4-8.2); Troponin I < 0.015 ng/ml (0-0.045)
[2020-08-12] MEDS ORDERED: FUROSEMIDE 40 MG/4 ML VIAL IV STA (21:23)
--- NOTE | 2020-08-13 00:03 | History & Physical Report ---
Date of Service August 12, 2020 Assessment & Plan (1) Edema: 35 yo C male with history of EtOH induced fatty liver, alcoholic hepatitis presents with 1 week of progressive edema. Patient with anasarca of bilateral legs, presacral and abdominal wall. Patient's Albumin has decreased to 1.6. His other laboratory parameters are similar to prior values - IGF=620, ALT=61, BV=159 and Tbili=8. His sodium level is slightly low at 135. PT/INR are within normal limits as are platelets at 266. No asterixis or evidence of hepatic encephalopathy. ?Progression of liver disease, worsening nutritional status and low albumin as cause of anasarca. He was administered 40mg of Lasix in the ER and is continuing to diurese with that. He is currently -1675mL. -Admit to medical with telemetry -Continue to monitor UOP and diuretic effect. Patient may need repeat Lasix dose -Check US liver -Check Tylenol level -Check EtOH level - patient has not had any alcohol since his detoxification admission. He was congratulated on this. -Monitor LFTs, INR -GI Consult appreciated Present on Admission?: Yes (2) Alcoholic fatty liver: As above. Labs are similar to prior admission. MDF=8, no indication for steroids at this time -Patient has been abstinent from EtOH since his last hospitalization -Workup of edema as above -Continue Thiamine, Folate, MVI daily -Continue Protonix 40mg po daily -GI Consultation as above Present on Admission?: Yes (3) History of opioid abuse: Patient has been clean x 8 years. Congratulated on this -Continue methadone 20mg po daily F/E/N - Diuresis with Lasix 40mg IV x 1 given in ER, monitor I/O, renal function and electrolytes, Check PO4 and replete as needed, Low Na diet as tolerated. Offer Nicotine patch and smoking cessation. Ppx - Lovenox Code - Full Dispo - Admit to medical with telemetry History of Present Illness Chief Complaint: edema Primary Care Provider: Albin Morales MD Ruslan Catherine is a 35yo C male presenting with one week of progressive edema. He has history of fatty liver associated with EtOH abuse. He had a recent hospital admission from 07/20/20 - 07/23/20 for alcohol detoxification and acute alcoholic hepatitis. He has remained abstinent from EtOH since then. He presents today with one week of progressive edema which started in his feet and has progressed up his legs, scrotum and abdominal wall. He has gained appx 8 kg from last documented hospital weight on 07/26/20. He states that his skin is tender and he has deep pain in both legs. He has stable jaundice and scleral icterus. Admits to some mild abdominal pain, soft stools and one episode of BRB on toilet paper after wiping, dark urine. He denies fevers/chills/chest pain/palpitations/cough/SOB/vomiting/hematemesis/melena. No somnolence or confusion. Upon arrival to the ER patient afebrile, tachycardic at 110 bpm, BP stable, adequate oxygenation on room air. ER Course: Lasix 40mg IV - negative 1675 mL Allergies Allergy/AdvReac Type Severity Reaction Status Date / Time No Known Allergies Allergy Verified 08/12/20 20:12 Home Medications Medication Instructions Recorded Confirmed Type pantoprazole 40 mg tablet,delayed 40 mg PO DAILY #30 tab 07/26/20 08/12/20 Rx release ibuprofen [Advil] 400 mg PO Q6H PRN 08/12/20 08/12/20 History methadone 20 mg PO DAILY 08/12/20 08/12/20 History multivitamin 1 tab PO DAILY 08/12/20 08/12/20 History Past Med/Surg History Medical History (Updated 08/12/20 @ 23:58 by Salma Perez DO) Alcoholic fatty liver History of opioid abuse Clean x 8 years. On Methadone Surgical History (Updated 08/12/20 @ 23:59 by Salma Perez DO) No significant past surgical history Family History (Updated 08/12/20 @ 23:59 by Salma Perez DO) Other Parkinson disease Social History (Updated 07/26/20 @ 11:23 by Mahsa Morel) Smoking Status: Never smoker Tobacco Type: Cigarettes Cigarettes Per Day: 25; Hx Alcohol Use: Yes Alcohol type: hard liquor Alcohol Intake Frequency: 4 or More x per/Week Hx Substance Use: Yes Last Used Substance Other:: yesterday Substance Use Type Other:: methadone Preferred Language: Bulgarian Communication Ability: Effective Application Coordinator Required: No Beliefs That Will Affect Care: None Current Living Situation: Family Feels Safe at Home: Yes Assistive Devices: None Review of Systems Review of Systems: All systems reviewed & are unremarkable except as noted in HPI & below Physical Exam Physical Exam: General: ill appearing male, NAD, resting comfortably Skin: +JAUNDICE, warm, dry, intact, no rashes or lesions HEENT: NC/AT, PERRL, EOMI, +SCLERAL ICTERUS, conjunctiva without injection, external ear normal to inspection and nontender, nares patent, moist mucus membranes, dentition intact, no oropharyngeal lesions, neck supple, trachea midline, no LAD, no thyromegaly, no JVD Heart: +S1/S2, regular, tachycardic, no m/r/g Lungs: equal air entry bilaterally, bibasilar crackles, no rhonchi/wheezes Abd: +BS, soft, distended with fluid wave Ext: warm, 2+ pulses in UE/LE bilaterally,3+ pitting edema of bilateral LE, scrotum, presacral and abdominal wall Neuro: nonfocal, patient AA&O x 4, speech intact, no facial droop, moving all extremities on command with equal strength 5/5, no asterixis Results & Data Results & Data ([facility]) Vital Signs (Past 12 Hours) Vital Signs Temp Pulse Resp BP Pulse Ox 08/12/20 22:31 100 H 17 95 08/12/20 22:30 100 H 19 124/70 96 08/12/20 22:01 101 H 23 98 08/12/20 22:00 100 H 20 135/81 97 08/12/20 21:31 98 H 18 96 08/12/20 21:30 98 H 16 126/74 97 08/12/20 21:29 100 H 21 97 08/12/20 20:31 100 H 31 H 97 08/12/20 20:30 100 H 17 125/74 99 08/12/20 20:01 103 H 21 99 08/12/20 20:00 109 H 18 123/78 98 08/12/20 19:50 102 H 20 98 08/12/20 19:44 101 H 20 98 08/12/20 19:39 96 H 15 130/75 99 08/12/20 19:25 36.8 C 110 H 22 127/77 99 08/12/20 19:24 20 98 Laboratory Results Lab Results 08/12/20 08/12/20 08/12/20 Range/Units 20:10 20:10 20:10 WBC 8.82 (4.8-10.8) K/uL RBC 3.11 L (4.7-6.1) M/uL Hgb 11.1 L (14.0-18.0) g/dL Hct 32.6 L (42-52) % MCV 104.8 H (80-100) fL MCH 35.7 H (25-34) pg MCHC 34.0 (32-36) g/dL RDW Std Deviation 62.3 H (36.4-46.3) fL RDW Coeff of Lenora 16.6 H (11.5-14.5) % Plt Count 266 (130-400) K/uL MPV 10.1 (7.4-10.4) fL Immature Gran % (Auto) 0.5 % Neut % (Auto) 56.6 % Lymph % (Auto) 27.7 % [place] % (Auto) 11.8 % Eos % (Auto) 2.6 % Baso % (Auto) 0.8 % Neut # (Auto) 5.00 (1.4-6.5) K/uL Lymph # (Auto) 2.44 (1.2-3.4) K/uL [place] # (Auto) 1.04 H (0.11-0.59) K/uL Eos # (Auto) 0.23 (0-0.5) K/uL Baso # (Auto) 0.07 (0-0.2) K/uL Immature Gran # (Auto) 0.04 H (0.00-0.02) K/uL PT 12.0 (9.0-12.0) Seconds INR 1.1 (0.9-1.1) APTT 27.5 (21.0-31.0) Seconds PTT Ratio 1.0 Sodium 135 L (136-145) mmol/L Potassium 3.7 (3.5-5.1) mmol/L Chloride 103 (98-107) mmol/L Carbon Dioxide 24 (21-32) mmol/L Anion Gap 8.0 (3-11) BUN 6 L (7-18) mg/dl Creatinine 0.57 L (0.6-1.4) mg/dl Est Cr Clr Drug Dosing 213.9 ml/min Est GFR ( Amer) > 150.0 Est GFR (Non-Af Amer) 134.0 BUN/Creatinine Ratio 10.8 (10-20) Glucose 82 (70-99) mg/dl Calcium 8.1 L (8.5-10.1) mg/dl Magnesium 2.1 (1.8-2.4) mg/dl Total Bilirubin 8.0 H (0.2-1) mg/dl AST 224 H (15-37) U/L ALT 61 (12-78) U/L Alkaline Phosphatase 248 H (45-117) U/L Ammonia (11-32) umol/L Total Creatine Kinase 22 L (39-308) U/L Troponin I < 0.015 (0-0.045) ng/ml Total Protein 6.9 (6.4-8.2) gm/dl Albumin 1.6 L (3.4-5.0) gm/dl Globulin 5.3 H (2.5-4.0) gm/dl Albumin/Globulin Ratio 0.3 L (0.9-2) TSH 3.860 (0.300-4.500) uIu/ml Urine Color Urine Appearance (Clear) Urine pH (4.5-7.5) Ur Specific [place] (1.000-1.030) Urine Protein (Negative) Urine Glucose (UA) (Negative) Urine Ketones (Negative) Urine Blood (Negative) Urine Nitrite (Negative) Urine Bilirubin (Negative) Urine Urobilinogen (Negative) Ur Leukocyte Esterase (Negative) Urine WBC (Auto) (0-5) /hpf Urine RBC (Auto) (0-4) /hpf U Hyaline Cast (Auto) (0-5) /lpf U Epithel Cells (Auto) (0-5) /lpf Urine Bacteria (Auto) (Negative) SARS-CoV-2 Ag (Rapid) (Negative) 08/12/20 08/12/20 08/12/20 Range/Units 20:10 20:35 22:49 WBC (4.8-10.8) K/uL RBC (4.7-6.1) M/uL Hgb (14.0-18.0) g/dL Hct (42-52) % MCV (80-100) fL MCH (25-34) pg MCHC (32-36) g/dL RDW Std Deviation (36.4-46.3) fL RDW Coeff of Lenora (11.5-14.5) % Plt Count (130-400) K/uL MPV (7.4-10.4) fL Immature Gran % (Auto) % Neut % (Auto) % Lymph % (Auto) % [place] % (Auto) % Eos % (Auto) % Baso % (Auto) % Neut # (Auto) (1.4-6.5) K/uL Lymph # (Auto) (1.2-3.4) K/uL [place] # (Auto) (0.11-0.59) K/uL Eos # (Auto) (0-0.5) K/uL Baso # (Auto) (0-0.2) K/uL Immature Gran # (Auto) (0.00-0.02) K/uL PT (9.0-12.0) Seconds INR (0.9-1.1) APTT (21.0-31.0) Seconds PTT Ratio Sodium (136-145) mmol/L Potassium (3.5-5.1) mmol/L Chloride (98-107) mmol/L Carbon Dioxide (21-32) mmol/L Anion Gap (3-11) BUN (7-18) mg/dl Creatinine (0.6-1.4) mg/dl Est Cr Clr Drug Dosing ml/min Est GFR ( Amer) Est GFR (Non-Af Amer) BUN/Creatinine Ratio (10-20) Glucose (70-99) mg/dl Calcium (8.5-10.1) mg/dl Magnesium (1.8-2.4) mg/dl Total Bilirubin (0.2-1) mg/dl AST (15-37) U/L ALT (12-78) U/L Alkaline Phosphatase (45-117) U/L Ammonia < 10.0 L (11-32) umol/L Total Creatine Kinase (39-308) U/L Troponin I (0-0.045) ng/ml Total Protein (6.4-8.2) gm/dl Albumin (3.4-5.0) gm/dl Globulin (2.5-4.0) gm/dl Albumin/Globulin Ratio (0.9-2) TSH (0.300-4.500) uIu/ml Urine Color Dark Yellow Urine Appearance Clear (Clear) Urine pH 6.0 (4.5-7.5) Ur Specific [place] 1.023 (1.000-1.030) Urine Protein Trace H (Negative) Urine Glucose (UA) Negative (Negative) Urine Ketones Negative (Negative) Urine Blood Negative (Negative) Urine Nitrite Positive A (Negative) Urine Bilirubin 3+ H (Negative) Urine Urobilinogen Positive H (Negative) Ur Leukocyte Esterase 1+ H (Negative) Urine WBC (Auto) 1-5 (0-5) /hpf Urine RBC (Auto) 0-4 (0-4) /hpf U Hyaline Cast (Auto) 1-5 (0-5) /lpf U Epithel Cells (Auto) 0-5 (0-5) /lpf Urine Bacteria (Auto) Negative (Negative) SARS-CoV-2 Ag (Rapid) Negative (Negative) Diagnostic Findings Venous doppler study - NO DVT per STAT-rad report CXR - by my interpretation - trachea is midline, air-filled, no obvious infiltrate ECG Additional Comments: NSR at 99, normal axis, MW=094, QRS=78, EXFt=163, NO acute ischemic changes PG Care Time/CCT Total # of Minutes Spent Total Time Spent with Patient: Total time spent is greater than 50% in coordination of care (as documented) at patient's floor/unit and/or counseling patient: Coding Level of Care Code 28617 Initial Inpt Care Lvl 2 Diagnoses Edema R60.9 Edema type: unspecified Alcoholic fatty liver K70.0 History of opioid abuse F11.11 (1) Edema Edema type: unspecified Qualified Code(s): R60.9 - Edema, unspecified
[2020-08-13] MEDS ORDERED: DOCUSATE SODIUM 100 MG CAP PO PRN (01:01)
[2020-08-13] MEDS: ONDANSETRON INJ 2 MG/ML 2 ML VIAL IV PRN (01:51)
[2020-08-13] MEDS ORDERED: NICOTINE 21 MG/24 HR TDSY TD ONE (02:45)
[2020-08-13 06:28] LABS: Basophils # (auto) 0.05 K/uL (0-0.2); Basophils % (auto) 0.8 %; Eosinophils # (auto) 0.19 K/uL (0-0.5); Eosinophils % (auto) 2.9 %; Hematocrit (blood only) 30.4 % (42-52); Hemoglobin 10.4 g/dL (14.0-18.0); Immature Granulocytes # (auto) 0.02 K/uL (0.00-0.02); Immature Granulocytes % (auto) 0.3 %; Lymphocytes # (auto) 2.04 K/uL (1.2-3.4); Lymphocytes % (auto) 30.9 %; Mean Corpuscular Hemoglobin 35.6 pg (25-34); Mean Corpuscular Hgb Conc 34.2 g/dL (32-36); Mean Corpuscular Volume 104.1 fL (80-100); Monocytes # (auto) 0.81 K/uL (0.11-0.59); Monocytes % (auto) 12.3 %; Neutrophils % (auto) 52.8 %; Platelet Count 278 K/uL (130-400); RDW Coefficient of Variation 16.7 % (11.5-14.5); RDW Standard Deviation 62.7 fL (36.4-46.3); Red Blood Count 2.92 M/uL (4.7-6.1); White Blood Count 6.61 K/uL (4.8-10.8)
[2020-08-13 06:38] LABS: INR 1.2 (0.9-1.1); Prothrombin Time 12.3 Seconds (9.0-12.0)
[2020-08-13 06:55] LABS: Alanine Aminotransferase 58 U/L (12-78); Albumin Level 1.4 gm/dl (3.4-5.0); Aspartate Aminotransferase 206 U/L (15-37); BUN Creatinine Ratio 9.9 (10-20); Bilirubin Direct 6.4 mg/dl (0-0.2); Blood Urea Nitrogen 5 mg/dl (7-18); Calcium 7.9 mg/dl (8.5-10.1); Carbon Dioxide 27 mmol/L (21-32); Chloride 104 mmol/L (98-107); Creatinine Clr Calc Pharmacy 220.7 ml/min; Est GFR (African American) > 150.0; Glucose 81 mg/dl (70-99); Potassium 3.8 mmol/L (3.5-5.1); Sodium 137 mmol/L (136-145)
[2020-08-13 06:57] LABS: Alkaline Phosphatase 216 U/L (45-117); Bilirubin,Total 7.4 mg/dl (0.2-1); Total Protein 6.4 gm/dl (6.4-8.2)
--- NOTE | 2020-08-13 07:02 | Ultrasound Report ---
US abdomen ltd ascites CLINICAL HISTORY: ascites COMPARISON STUDY: CT of the abdomen and pelvis July 20, 2020. Right upper quadrant ultrasound De [id number]. FINDINGS: A small amount of perihepatic ascites is noted. There is moderate ascites within the lower abdomen and pelvis. IMPRESSION: Small to moderate ascites. ACT 112: Negative or not required by law. Electronically signed by: Caden Cruz M.D. 08/13/2020 7:01 AM
--- NOTE | 2020-08-13 07:24 | XRay Report ---
XR chest 1V portable CLINICAL HISTORY: weakness COMPARISON STUDY: Chest radiograph July 20, 2020. FINDINGS: Lung volumes are normal. Lungs are clear. There is no pneumothorax or pleural effusion. Car diac size is normal. Mediastinal contours are normal. There is no evidence for pulmonary edema. IMPRESSION: No acute cardiopulmonary findings. ACT 112: Negative or not required by law. Electronically signed by: Caden Cruz M.D. 08/13/2020 7:23 AM
--- NOTE | 2020-08-13 08:02 | Ultrasound Report ---
BILATERAL LOWER EXTREMITY VENOUS DOPPLER HISTORY: Acute swelling of the lower legs edema COMPARISON STUDY: None. FINDINGS: There is normal compressibility, flow, and augmentation within the bilateral lower extremit y deep venous systems. Subcutaneous edema. IMPRESSION: No DVT within the right or left lower extremity. ACT 112: Negative or not required by law. Electronically signed by: Shawn Painting M.D. 08/13/2020 8:01 AM
--- NOTE | 2020-08-13 10:09 | Gastrointestinal Consultation ---
Date of Consultation August 13, 2020 Assessment & Plan (1) Alcoholic fatty liver: (2) Edema: -Recommend nutrition consult -Outpatient hepatology evaluation is being arranged; Alcoholic hepatitis picture is improved from previous admission, but if patient decompensates could consider transfer. No indication for steroids given DF is 8. -Consider paracentesis with fluid studies -Continue diuresis as initiated by primary team -Continue to follow LFTs and PT/INR -Rule out any overlapping cardiac issues -Continue Thiamine & Folic acid supplementation -Continued alcohol abstinence -Note that all imaging studies have not suggested evidence of cirrhosis, though could consider a liver biopsy in the future; would likely defer this at present as patient has upcoming hepatology evaluation Supervising Physician Co-Signing Physician Notes I personally evaluated the patient and agree with the findings as documented by Aziza Flores, ARIADNE Exam: abd: soft, nt, nd History of Present Illness Reason for Consultation: Alcoholic hepatitis Attending Physician: Jim Jackson DO History of Present Illness Patient is a 35 yo male who was recently hospitalized with alcoholic hepatitis in late June 2020. He presents again with edema of his lower extremities and worsening SOB. He has reportedly not had alcohol since prior to his June admission. His alcohol level is negative. He has been seen in the outpatient setting. All liver imaging thus far has not demonstrated evidence of liver cirrhosis, but does not marked hepatic steatosis. The patient's INR is improved from last admission (now 1.2). AST 206. ALT 58, Alk phos 216. T Bili is 7.4 and D Bili is 6.4. MDF=8. A small amount of perihepatic ascites is noted on US today, but a moderate amount is noted in the lower abdomen. Over the past week, he has noted progressive edema. This began in his feet and progressed upwards. He has gained >15 lbs since his last admission. He notes pain in his legs bilaterally. His jaundice appears the same since his outpatient visit. He was recently prescribed a PPI due to concerns for gastritis. Allergies Allergy/AdvReac Type Severity Reaction Status Date / Time No Known Allergies Allergy Verified 08/12/20 20:12 Home Medications Medication Instructions Recorded Confirmed Type pantoprazole 40 mg tablet,delayed 40 mg PO DAILY #30 tab 07/26/20 08/12/20 Rx release ibuprofen [Advil] 400 mg PO Q6H PRN 08/12/20 08/12/20 History methadone 20 mg PO DAILY 08/12/20 08/12/20 History multivitamin 1 tab PO DAILY 08/12/20 08/12/20 History Patient History Medical History Alcoholic fatty liver History of opioid abuse Clean x 8 years. On Methadone Surgical History (Updated 08/12/20 @ 23:59 by Salma Perez DO) No significant past surgical history Family History (Updated 08/13/20 @ 00:00 by Salma Perez DO) Other Parkinson disease Social History Smoking Status: Current every day smoker Tobacco Type: Cigarettes Cigarettes Per Day: 25; Hx Alcohol Use: Yes Alcohol type: hard liquor Alcohol Intake Frequency: 4 or More x per/Week Hx Substance Use: Yes Last Used Substance: Unknown Last Used Substance Other:: yesterday Substance Use Type Other:: methadone Preferred Language: Japanese Communication Ability: Effective White Goods Appliance Tech Required: No Beliefs That Will Affect Care: None Current Living Situation: Family Feels Safe at Home: Yes Assistive Devices: None Review of Systems Constitutional: + fatigue and + weight gain; no fever and no chills Eyes: no problem reported Ear, Nose, Mouth, Throat: no problem reported Respiratory: + dyspnea on exertion Cardiovascular: no chest pain Gastrointestinal: + abdominal pain Musculoskeletal: no problem reported Integumentary: + change in skin color Psychiatric: + substance abuse (history of) Hematologic / Lymphatic: no unexplained weight loss Physical Exam Constitutional: no acute distress Eyes: + scleral abnormality ENMT: Ears: no hearing impairment Neck: normal visual inspection Respiratory: normal respiratory effort Cardiovascular: Extremities: + edema Gastrointestinal (Abdomen): Percussion/Palpation: + ascites; abdomen nontender Musculoskeletal: Head/Neck/Chest: normocephalic Skin: no rashes, warm and dry Psychiatric: A+Ox3, euthymic affect Results & Data ([facility]) Vital Signs (Past 12 Hours) Vital Signs Temp Pulse Pulse Resp BP BP Pulse Ox 08/13/20 08:28 37.1 C 90 20 108/68 95 08/13/20 04:45 36.8 C 73 20 146/82 H 92 08/13/20 02:14 101 H 12/21/20 01:20 37.1 C 102 H 20 105/75 100 08/13/20 00:31 99 H 17 97 08/13/20 00:30 102 H 25 H 123/65 97 08/13/20 00:01 102 H 22 95 08/13/20 00:00 102 H 18 123/67 95 08/12/20 23:31 102 H 22 96 08/12/20 23:30 103 H 20 129/78 96 08/12/20 23:01 105 H 21 97 08/12/20 23:00 100 H 16 121/70 96 08/12/20 22:31 100 H 17 95 08/12/20 22:30 100 H 19 124/70 96 PG Care Time/CCT Total # of Minutes Spent Total Time Spent with Patient: Total time spent is greater than 50% in coordination of care (as documented) at patient's floor/unit and/or counseling patient: Coding Level of Care Code 28042 Inpt Consult Level 4 Diagnoses Alcoholic fatty liver K70.0 Edema R60.9 Edema type: unspecified (1) Edema Edema type: unspecified Qualified Code(s): R60.9 - Edema, unspecified
[2020-08-13] MEDS: NICOTINE 21 MG/24 HR TDSY TD SCH (10:14)
[2020-08-13] MEDS: THIAMINE HCL 100 MG TAB PO SCH (10:16)
[2020-08-13] MEDS: PANTOprazole 40 MG TAB PO SCH (10:16)
[2020-08-13] MEDS: MULTIVITAMIN TAB PO SCH (10:16)
[2020-08-13] MEDS: FOLIC ACID 1 MG TAB PO SCH (10:16)
[2020-08-13] MEDS: ENOXAPARIN INJ 40 MG/0.4 ML SYR SQ SCH (10:16)
[2020-08-13] MEDS: METHADONE HCL 10 MG TAB PO SCH (10:19)
--- NOTE | 2020-08-13 12:06 | Electrocardiogram Report ---
Test Reason : Blood Pressure : / mmHG Vent. Rate : 099 BPM Atrial Rate : 099 BPM P-R Int : 162 ms QRS Dur : 078 ms QT Int : 372 ms P-R-T Axes : 042 032 043 degrees QTc Int : 477 ms Poor data quality, interpretation may be adversely affected Normal sinus rhythm Normal ECG When compared with ECG of 10-APR-2015 08:52, Nonspecific T wave abnormality no longer evident in Anterolateral leads Confirmed by Bhanu Mitchell ([id number]) on 08/13/2020 12:06:17 PM Referred By: REFERRED SELF Confirmed By:Bhanu Mitchell
--- NOTE | 2020-08-13 14:59 | XCELERA ---
[id number]
--- NOTE | 2020-08-13 18:07 | Hospitalist Progress Note ---
Date of Service August 13, 2020 Assessment & Plan (1) Edema: related to liver disease and low albumin (which is also probably part liver disease and part chronic protein malnutrition) -discussed trial of diuretic but also that likely we'll reach a point that he is as dry as kidneys can handle even while still edematous -discussed movement to mobilize fluids -discussed protein intake / small animal veterinarian consult -cautiously continue lasix and follow -echo for completeness (2) Alcoholic fatty liver: As above. Labs are similar to prior admission. MDF=8, no indication for steroids at this time -Patient has been abstinent from EtOH since his last hospitalization -Workup of edema as above -Continue Thiamine, Folate, MVI daily -Continue Protonix 40mg po daily -applauded sobriety (3) History of opioid abuse: stable on methadone Ppx - Lovenox Code - Full Dispo - stable on medical consider testosterone testing once at baseline state as outpt Admission and Anticipated Discharge Date Admission Date: August 12, 2020 Subjective feeling ok. swelling maybe improved some. eating well at home now - but only recently sober. no other new complaints. discussed edema/cause/management - he expressed good understanding Review of Systems Review of Systems: All systems reviewed & are unremarkable except as noted in HPI & below Physical Exam Physical Exam: gen aaox3 pleasant nad heent nc at mmm breathing unlabored no accessory muscles good effort skin no rashes no pallor or icterus. ~2+ pitting edema to about mid thigh equal b/l no erythema no calf tenderness Results & Data Results & Data ([facility]) Vital Signs (Past 12 Hours) Vital Signs Temp Pulse Pulse Resp BP Pulse Ox 08/13/20 16:06 89 08/13/20 15:47 98.8 F 89 20 115/68 93 08/13/20 11:57 98.6 F 89 20 107/64 93 08/13/20 08:28 98.8 F 90 20 108/68 95 PG Care Time/CCT Total # of Minutes Spent Total Time Spent with Patient: Total time spent is greater than 50% in coordination of care (as documented) at patient's floor/unit and/or counseling patient: Coding Level of Care Code 40146 Subseq Hosp Care Lvl 3 Diagnoses Edema R60.9 Edema type: unspecified Alcoholic fatty liver K70.0 History of opioid abuse F11.11 (1) Edema Edema type: unspecified Qualified Code(s): R60.9 - Edema, unspecified
[2020-08-13] MEDS ORDERED: FUROSEMIDE 40 MG in SYRINGE 0 ML IV ONE (18:15)
[2020-08-13] MEDS ORDERED: IBUPROFEN 600 MG TAB PO PRN (20:59)
[2020-08-14] MEDS: ONDANSETRON INJ 2 MG/ML 2 ML VIAL IV PRN (03:47)
[2020-08-14 07:16] LABS: BUN Creatinine Ratio 11.2 (10-20); Blood Urea Nitrogen 6 mg/dl (7-18); Calcium 8.2 mg/dl (8.5-10.1); Carbon Dioxide 29 mmol/L (21-32); Chloride 101 mmol/L (98-107); Creatinine Clr Calc Pharmacy 217.8 ml/min; Est GFR (African American) > 150.0; Glucose 88 mg/dl (70-99); Potassium 3.8 mmol/L (3.5-5.1); Sodium 135 mmol/L (136-145)
[2020-08-14] MEDS: ENOXAPARIN INJ 40 MG/0.4 ML SYR SQ SCH (07:55)
[2020-08-14] MEDS: METHADONE HCL 10 MG TAB PO SCH (07:55)
[2020-08-14] MEDS: PANTOprazole 40 MG TAB PO SCH (07:56)
[2020-08-14] MEDS: THIAMINE HCL 100 MG TAB PO SCH (07:56)
[2020-08-14] MEDS: MULTIVITAMIN TAB PO SCH (07:56)
[2020-08-14] MEDS: NICOTINE 21 MG/24 HR TDSY TD SCH (07:56)
[2020-08-14] MEDS: FOLIC ACID 1 MG TAB PO SCH (07:56)
--- NOTE | 2020-08-14 16:31 | Discharge Summary ---
Date of Service August 14, 2020 Admission HPI Per Admitting Provider Ruslan Catherine is a 35yo C male presenting with one week of progressive edema. He has history of fatty liver associated with EtOH abuse. He had a recent hospital admission from 07/20/20 - 07/23/20 for alcohol detoxification and acute alcoholic hepatitis. He has remained abstinent from EtOH since then. He presents today with one week of progressive edema which started in his feet and has progressed up his legs, scrotum and abdominal wall. He has gained appx 8 kg from last documented hospital weight on 07/26/20. He states that his skin is tender and he has deep pain in both legs. He has stable jaundice and scleral icterus. Admits to some mild abdominal pain, soft stools and one episode of BRB on toilet paper after wiping, dark urine. He denies fevers/chills/chest pain/palpitations/cough/SOB/vomiting/hematemesis/melena. No somnolence or confusion. Upon arrival to the ER patient afebrile, tachycardic at 110 bpm, BP stable, adequate oxygenation on room air. ER Course: Lasix 40mg IV - negative 1675 mL Principal Diagnosis edema - see "hospital course" Discharge Exam gen aaox3 pleasant nad heent nc at mmm breathing unlabored no accessory muscles good effort skin no rashes no pallor or icterus neuro no focal deficits ongoing ~2+ soft edema LE Discharge Data Allergies Allergy/AdvReac Type Severity Reaction Status Date / Time No Known Allergies Allergy Verified 08/12/20 20:12 Consultations 08/12/20 22:19 ED Decision to Admit Stat 08/13/20 01:01 Consult Gastroenterology Routine Ordered Studies 08/12/20 19:50 US venous doppler LE BI Stat 08/13/20 01:01 US abdomen ltd ascites Routine Hospital Course (1) Edema: related to liver disease and low albumin (which is also probably part liver disease and part chronic protein malnutrition) -discussed trial of diuretic but also that likely we'll reach a point that he is as dry as kidneys can handle even while still edematous -- did 2 days 40mg lasix IV with no appreciable improvement in fluids; he's stable and safe for home - discussed home on diuretics - but after discussion of risks/benefits and the fact that frequent BMP would be very difficult for him - he opted to not continue with diuretics for now -discussed movement to mobilize fluids -discussed protein intake -echo for completeness - was expectedly normal -stable for home, PCP f/u (2) Alcoholic fatty liver: As above. Labs are similar to prior admission. MDF=8, no indication for steroids at this time -Patient has been abstinent from EtOH since his last hospitalization -ongoing sobriety -thiamine, folate, MVI (3) History of opioid abuse: stable on methadone Total Time Total Time Spent Total Time Spent (In Minutes): <30 Discharge Plan Discharge Items Patient Disposition: Home - Self-Care Reason For Visit: ANASARCA Discharge Diagnosis: swelling (see below) Condition on Discharge: Fair Activity: Resume your previous activity Non-emergency contact: Primary Care Provider and [employer] Call non-emergency contact if: you have any medication questions and your symptoms worsen Follow-up/Referrals: Albin Morales MD [Primary Care Provider] - 08/27/20 2:10 pm (You already have appt schedule with Dr. Frank on 08/27 at 210pm. Please follow all directions sent to you from the office ) Diet: Low Sodium (2gm) Addtl Attending Provider Instructions: swelling -as we discussed, the swelling is really a combination of two major factors: slow flow through your venous return system, and leaky blood vessels due to low protein slow flow -while most people think of blood flow in terms of arteries, venous return is a totally different setup. arteries are a tight/thick walled blood vessel and a high pressure system - with the heart acting as an active pump. the venous system is very different - it is low pressure (even central venous pressure is only about 10mmHg, compared to arteries that run about 110/70) and has no active pump to it. venous blood gets pushed back to the main parts of circulation by muscle contraction and/or gravity. because your liver is still swollen, it is creating a bit of a roadblock to that venous return ---> all of the venous blood that drains from your intestines runs through your liver, and the venous blood that drains from the lower half of your body otherwise runs right next to it. this - combined with the fact that the venous system is low pressure to begin with - creates a bit of a bottleneck, or traffic jam. as fluid backs up, veins tend to be a bit leaky - which then contributes to the swelling you've noticed in your legs. -over time, as your liver gets less swollen, this traffic jam should alleviate. in addition to just waiting for your liver to heal, the more you move/contract muscles the more you'll mobilize that fluid. you can also increase fluid return by having your legs elevated when you are sitting, and wearing compression socks to help squeeze the fluid when your muscles aren't mariano low protein -between being protein malnourished (which should improve over the coming month or two now that you're eating better again - yet another wonderful thing about seeing you sober!) and the fact that our liver is what processes foods into the proteins in our bloodstream (and so while your liver is still settling down, it's not going to make proteins quite as efficiently) your blood protein levels are quite low. this contributes to the swelling as well because the protein in our blood creates an osmotic pull (called oncotic pressure) that helps keep fluid in our blood vessels. having protein levels as low as yours are (albumin is the main one we look at -- it is 1.4, with a normal range of 3.4-5.0) makes it harder for the fluid to stay in the blood vessels anyway - and as you add the slow flow on top of the low protein, that explains much (if not all) of what we're seeing with the swelling -continue to eat well and over time your protein levels should slowly improve - typically this takes a few months to change - and figuring that we're looking at both needing to have time for your nutritional stores to improve AND time for your liver to get less inflamed and be able to work more appropriately - it makes sense that it will probably take a good 2-3 months to see significant improvement in this respect diuretics -as we discussed, and as you saw, the diuretics didn't really make a big difference in your swelling. this is because diuretics will make the kidneys pull off more fluid - and the kidneys are at the endpoint of arterial circulation - ie really not in the same bloodflow circuit as the venous swelling you're having. sometimes we see some degree of improvement in swelling with diuretics - but so far with you we haven't really seen much of any meaningful response. most of the time at best we still reach a point of diminishing ret urns - where worsening kidney function and/or dropping blood pressures will lead to a limit of how much diuretic we can use - often when the person is still reasonably swollen. as we discussed, we could cautiously continue to use diuretics working towards that point of "as dry as we can safely get you" - but to keep you out of trouble, we'd really need to do labs each week. since that's not something that's realistic to be able to do right now - and because you're not really going to be missing out on the mainstay of getting better (more an adjunct that has a chance to help some) - it's safer to not using any diuretics at this time. just keeping getting in more protein and walking as much as you can as above! keep taking care of yourself!! Pending Studies at Discharge: No Stand-Alone Forms: [facility] [employer]ide[employer], Smoking Cessation Medications and DC Order Prescriptions: New thiamine HCl (vitamin B1) [Vitamin B-1] 100 mg Tablet 100 mg PO QAM Qty: 30 RF: 0 folic acid 1 mg Tablet 1 mg PO QAM Qty: 30 RF: 0 Continued pantoprazole 40 mg tablet,delayed release (DR/EC) 40 mg PO DAILY Qty: 30 RF: 11 multivitamin Tablet 1 tab PO DAILY RF: 0 methadone 10 mg Tablet 20 mg PO DAILY RF: 0 Discontinued ibuprofen [Advil] 200 mg Tablet 400 mg PO Q6H PRN (Reason: Pain) RF: 0 Discharge Orders: Discharge Order (Routine); Ordered 08/14/20 Ordered By: Jim Jackson Admission Data Admit Date/Time: 08/12/20 23:47 Attending Provider: Jim Jackson Admit Provider: Salma Perez Primary Care Provider: Albin Morales V. Other Providers: Salma Perez ; Chris Hampton Other Interventions: Discharge Summary Assessment (RN) Last Done: 08/14/20 15:18 Coding Level of Care Code D/C Day Management <30 mins Diagnoses Edema R60.9 Edema type: unspecified Alcoholic fatty liver K70.0 History of opioid abuse F11.11
== END 2020-08-14 18:57 | disposition home or self-care (01) ==
LOC: ED 19:23 → 2N 23:47 → SUATTDRO 23:47 → 2N 08-13 00:23

== ENCOUNTER 2023-08-21 22:14 | Inpatient (IN) ==
[2023-08-21] MEDS ORDERED: SODIUM CHLORIDE 0.9% 1,000 ML IV SCH (22:45)
[2023-08-21] MEDS ORDERED: SODIUM CHLORIDE 0.9% 1,000 ML IV ONE (22:48)
--- NOTE | 2023-08-21 22:48 | Emergency Department Note ---
History of Present Illness General Chief complaint: Seizure Time Seen by Provider: 08/21/23 22:35 History of Present Illness This 38-year-old with a history of seizure disorder on Keppra presents the ER for seizure. Patient states he has not had a seizure in quite some time. He did state he did do meth today. Patient denies headache, chest pain, abdominal pain or any other medical complaints. He states he feels back to baseline. Apparently EMS states he was postictal for 10 to 15 minutes. This happened at work at [employer]. Home Medications Medication Instructions Recorded Confirmed Type aripiprazole 300 mg suspension, 0 mg IM .MONTH 08/22/23 08/22/23 History extended rel. intramuscular syringe (Sergey Maldonado) hydroxyzine pamoate 50 mg capsule 50 mg PO HS PRN Sleep 08/22/23 08/22/23 History levetiracetam 750 mg tablet 750 mg PO BID 08/22/23 08/22/23 History omeprazole 40 mg capsule,delayed 40 mg PO QAM 08/22/23 08/22/23 History release propranolol 10 mg tablet 10 mg PO DAILY 08/22/23 08/22/23 History rifaximin 550 mg tablet (Xifaxan) 550 mg PO AMHS 08/22/23 08/22/23 History spironolactone 100 mg tablet 100 mg PO QAM 08/22/23 08/22/23 History Allergies Allergy/AdvReac Type Severity Reaction Status Date / Time No Known Allergies Allergy Verified 08/22/23 02:59 Past Med/Surg History Medical History Acute alcoholic hepatitis Skin abrasion Difficult intravenous access GERD (gastroesophageal reflux disease) Seizure dx Summer 2020, [place] [facility]. possible episode "patient had a syncopal episode at the grocery store April 2021, treated at [facility]". Acute cholecystitis due to biliary calculus no surgery Acute cholecystitis Acute liver failure History of opioid abuse Clean x 8 years, quit the methadone treatment June 2020. Edema Alcoholic fatty liver Multiple thermal rockwell hx - no surgery Surgical History H/O wisdom tooth extraction History of esophagogastroduodenoscopy (EGD) Family History Grandfather (Maternal) Parkinson disease Denies family history of Ovarian cancer Prostate cancer Myocardial infarction Breast cancer Colorectal cancer Social History Smoking Status: Current every day smoker Tobacco Type: Cigarettes Cigarettes Per Day: 30; Second Hand Exposure: Yes; Do You Dip or Chew Tobacco: No; Hx Alcohol Use: Yes (quit February 2021) Alcohol type: beer and hard liquor Alcohol Intake Frequency: 4 or More x per/Week Hx Substance Use: Yes (quit illicit drugs ~2012.) Last Used Substance: Unknown Substance Use Type Other:: methadone (quit June 2020) Preferred Language: Thai Communication Ability: Effective New Car Inspector Required: No Beliefs That Will Affect Care: None Current Living Situation: Family Feels Safe at Home: Yes Assistive Devices: None Review of Systems A total of 10 systems reviewed and were otherwise negative Physical Exam Vital Signs Vital Signs - 24 hr 08/21/23 22:53 08/21/23 22:54 08/22/23 00:08 Pulse Rate 92 H 86 Pulse Rate from SpO2 Sensor 89 Respiratory Rate 14 19 Respiratory Effort / Characteristics Non-Labored Spontaneous Respiratory Depth Normal Blood Pressure 110/79 145/92 H Blood Pressure Mean 89 109 Pulse Oximetry 99 99 99 Oxygen Delivery Method Room Air Room Air Room Air Sepsis New/Unexplained Change in Mental Status No Sepsis Action Taken by Nursing No Action Required 08/22/23 01:00 08/22/23 02:00 08/22/23 02:10 Pulse Rate 93 H 98 H 100 H Pulse Rate from SpO2 Sensor 95 H Respiratory Rate 17 18 Respiratory Effort / Characteristics Respiratory Depth Blood Pressure 120/75 120/77 Blood Pressure Mean 85 89 Pulse Oximetry 99 98 Oxygen Delivery Method Room Air Room Air Sepsis New/Unexplained Change in Mental Status Sepsis Action Taken by Nursing VITALS: Vitals are noted on the nurse's note and reviewed by myself. Vital signs stable. GENERAL: Pleasant male, in no acute distress, nondiaphoretic, well-developed well-nourished. SKIN: Capillary reflex less than 2 seconds. HEENT: Normocephalic. PERRLA. EOMI. Nares patent. Mucous membranes moist. Neck is supple without nuchal rigidity. HEART: Regular rate and rhythm LUNGS: Clear to auscultation bilaterally without wheezes, rales or rhonchi. No retractions or accessory muscle use. ABDOMEN: Positive bowel sounds x 4. Normal tympanic percussion. Soft, nontender, without masses or organomegaly. Leggett sign negative. No guarding or rebound tenderness. MUSCULOSKELETAL: No gross musculoskeletal defects. NEURO: Patient was alert and oriented to person place and time. No focal neurological deficits. Course Administered Medications Discontinued Medications Sodium Chloride (Nss) 1,000 mls @ 999 mls/hr IV .Q1H1M DOMITILA Stop: 08/21/23 23:45 Last Admin: 08/22/23 00:47 Dose: Not Given Documented By: BYRON Sodium Chloride (Nss) 1,000 mls @ 999 mls/hr IV .Q1H1M ONE Stop: 08/21/23 23:48 Last Infusion: 08/22/23 01:12 Dose: Infused Documented By: Admin: 08/22/23 00:11 Dose: 999 mls/hr Documented By: BYRON Levetiracetam 1,000 mg/ Sodium (Chloride) 110 mls @ 440 mls/hr IV NOW STA Stop: 08/22/23 01:00 Last Infusion: 08/22/23 02:01 Dose: Infused Documented By: Admin: 08/22/23 01:46 Dose: 440 mls/hr Documented By: BYRON Medical Decision Making Medical Records Attestation: I reviewed the patient's medical records. Home Medications Current Medication List: was personally reviewed by me Laboratory Data Attestation: I reviewed the patient's lab results. 08/22/23 02:51 08/21/23 23:28 Lab Results 08/21/23 08/22/23 08/22/23 Range/Units 23:28 00:13 02:44 WBC Cancelled RBC Cancelled Hgb Cancelled Hct Cancelled MCV Cancelled MCH Cancelled MCHC Cancelled RDW Std Deviation Cancelled RDW Coeff of Lenora Cancelled Plt Count Cancelled MPV Cancelled Immature Gran % (Auto) Cancelled Neut % (Auto) Cancelled Lymph % (Auto) Cancelled [place] % (Auto) Cancelled Eos % (Auto) Cancelled Baso % (Auto) Cancelled Neut # (Auto) Cancelled Lymph # (Auto) Cancelled [place] # (Auto) Cancelled Eos # (Auto) Cancelled Baso # (Auto) Cancelled Immature Gran # (Auto) Cancelled Absolute Nucleated RBC Cancelled Nucleated RBC % (auto) Cancelled Neutrophils % (Manual) Cancelled Band Neutrophils % Cancelled Lymphocytes % (Manual) Cancelled Prolymphocyte % Cancelled Reactive Lymphs % (Man) Cancelled Monocytes % (Manual) Cancelled Eosinophils % (Manual) Cancelled Basophils % (Manual) Cancelled Metamyelocytes % (Man) Cancelled Myelocytes % (Man) Cancelled Promyelocytes % (Man) Cancelled Blast Cells % (Manual) Cancelled Plasma Cell % (Manual) Cancelled Other Cells % Cancelled Nucleated RBC % Cancelled Neutrophils # (Manual) Cancelled Band Neutrophils # Cancelled Total Absolute Neuts Cancelled Lymphocytes # (Manual) Cancelled Prolymphocyte # Cancelled Reactive Lymphs # Cancelled Total Abs Lymphocytes Cancelled Monocytes # (Manual) Cancelled Eosinophils # (Manual) Cancelled Basophils # (Manual) Cancelled Metamyelocytes # (Man) Cancelled Myelocytes # (Manual) Cancelled Promyelocytes # (Man) Cancelled Blast Cells # (Man) Cancelled Plasma Cell # (Manual) Cancelled Other Cells # Cancelled Nucleated RBCs # (Man) Cancelled Hypersegmented Neuts Cancelled Hyposegmented Neuts Cancelled Hypogranular Neuts Cancelled Large Granular Lymphs Cancelled # Lrg Granular Lymphs Cancelled Hairy Cells Cancelled Smudge Cells Cancelled Toxic Granulation Cancelled Toxic Vacuolation Cancelled Dohle Bodies Cancelled Ankush Rods Cancelled Platelet Estimate Cancelled Hypogranular Platelets Cancelled Giant Platelets Cancelled Platelet Satelliting Cancelled RBC Morphology Cancelled Polychromasia Cancelled Hypochromasia Cancelled Poikilocytosis Cancelled Basophilic Stippling Cancelled Anisocytosis Cancelled Microcytosis Cancelled Macrocytosis Cancelled Spherocytes Cancelled Pappenheimer Bodies Cancelled Sickle Cells Cancelled Target Cells Cancelled Tear Drop Cells Cancelled Ovalocytes Cancelled Stomatocytes Cancelled Dominguez-Sabula Bodies Cancelled Echinocytes Cancelled Acanthocytes (Spur) Cancelled Rouleaux Cancelled RBC Agglutinates Cancelled Schistocytes Cancelled Sezary Cell Cancelled Sodium 121 L (136-145) mmol/L Potassium 4.3 (3.5-5.1) mmol/L Chloride 90 L (98-107) mmol/L Carbon Dioxide 23 (21-32) mmol/L Anion Gap 8 (3-11) BUN 13 (6-23) mg/dl Creatinine 0.72 (0.6-1.4) mg/dl Est Cr Clr Drug Dosing Not Reportable Est GFR ( Amer) 138.1 ml/min Est GFR (Non-Af Amer) 119.2 ml/min BUN/Creatinine Ratio 18.1 (10-20) Glucose 89 (70-99(Fasting)) mg/dl Calcium 9.5 (8.6-10.3) mg/dl Magnesium 2.1 (1.7-2.4) mg/dl Total Bilirubin 0.6 (0.2-1.0) mg/dl AST 43 H (13-39) U/L ALT 69 H (7-52) U/L Alkaline Phosphatase 133 H (34-104) U/L Total Creatine Kinase 431 H (30-223) U/L Total Protein 7.4 (6.0-8.3) gm/dl Albumin 4.2 (3.4-5.0) gm/dl Globulin 3.2 (2.5-4.0) gm/dl Albumin/Globulin Ratio 1.3 (0.9-2) Urine Opiates Screen Neg (Neg) Ur Methadone, Qual Neg (Neg) Urine Barbiturates Neg (Neg) Ur Phencyclidine (PCP) Neg (Neg) U Amphetamin/Meth Scrn Pos H (Neg) MDMA (Ecstasy) Screen Pos H (Neg) U Benzodiazepines Scrn Neg (Neg) Ur Cocaine Metabolite Neg (Neg) U Marijuana (THC) Screen Neg (Neg) SARS-CoV-2, RNA, NAAT NEGATIVE (NEGATIVE) Blood Parasites ID Cancelled 08/22/23 Range/Units 02:51 WBC 6.51 RBC 4.23 L Hgb 13.3 L Hct 35.8 L MCV 84.6 MCH 31.4 MCHC 37.2 H RDW Std Deviation 37.6 RDW Coeff of Lenora 12.4 Plt Count 157 MPV 10.4 Immature Gran % (Auto) 0.3 Neut % (Auto) 53.9 Lymph % (Auto) 33.3 [place] % (Auto) 10.4 Eos % (Auto) 1.8 Baso % (Auto) 0.3 Neut # (Auto) 3.50 Lymph # (Auto) 2.17 [place] # (Auto) 0.68 H Eos # (Auto) 0.12 Baso # (Auto) 0.02 Immature Gran # (Auto) 0.02 Absolute Nucleated RBC Nucleated RBC % (auto) Neutrophils % (Manual) Band Neutrophils % Lymphocytes % (Manual) Prolymphocyte % Reactive Lymphs % (Man) Monocytes % (Manual) Eosinophils % (Manual) Basophils % (Manual) Metamyelocytes % (Man) Myelocytes % (Man) Promyelocytes % (Man) Blast Cells % (Manual) Plasma Cell % (Manual) Other Cells % Nucleated RBC % Neutrophils # (Manual) Band Neutrophils # Total Absolute Neuts Lymphocytes # (Manual) Prolymphocyte # Reactive Lymphs # Total Abs Lymphocytes Monocytes # (Manual) Eosinophils # (Manual) Basophils # (Manual) Metamyelocytes # (Man) Myelocytes # (Manual) Promyelocytes # (Man) Blast Cells # (Man) Plasma Cell # (Manual) Other Cells # Nucleated RBCs # (Man) Hypersegmented Neuts Hyposegmented Neuts Hypogranular Neuts Large Granular Lymphs # Lrg Granular Lymphs Hairy Cells Smudge Cells Toxic Granulation Toxic Vacuolation Dohle Bodies Ankush Rods Platelet Estimate Hypogranular Platelets Giant Platelets Platelet Satelliting RBC Morphology Polychromasia Hypochromasia Poikilocytosis Basophilic Stippling Anisocytosis Microcytosis Macrocytosis Spherocytes Pappenheimer Bodies Sickle Cells Target Cells Tear Drop Cells Ovalocytes Stomatocytes Dominguez-Sabula Bodies Echinocytes Acanthocytes (Spur) Rouleaux RBC Agglutinates Schistocytes Sezary Cell Sodium (136-145) mmol/L Potassium (3.5-5.1) mmol/L Chloride (98-107) mmol/L Carbon Dioxide (21-32) mmol/L Anion Gap (3-11) BUN (6-23) mg/dl Creatinine (0.6-1.4) mg/dl Est Cr Clr Drug Dosing Est GFR ( Amer) ml/min Est GFR (Non-Af Amer) ml/min BUN/Creatinine Ratio (10-20) Glucose (70-99(Fasting)) mg/dl Calcium (8.6-10.3) mg/dl Magnesium (1.7-2.4) mg/dl Total Bilirubin (0.2-1.0) mg/dl AST (13-39) U/L ALT (7-52) U/L Alkaline Phosphatase (34-104) U/L Total Creatine Kinase (30-223) U/L Total Protein (6.0-8.3) gm/dl Albumin (3.4-5.0) gm/dl Globulin (2.5-4.0) gm/dl Albumin/Globulin Ratio (0.9-2) Urine Opiates Screen (Neg) Ur Methadone, Qual (Neg) Urine Barbiturates (Neg) Ur Phencyclidine (PCP) (Neg) U Amphetamin/Meth Scrn (Neg) MDMA (Ecstasy) Screen (Neg) U Benzodiazepines Scrn (Neg) Ur Cocaine Metabolite (Neg) U Marijuana (THC) Screen (Neg) SARS-CoV-2, RNA, NAAT (NEGATIVE) Blood Parasites ID Imaging Data Radiologist's Impression: Chest X-Ray 08/21/23 22:48 SINGLE VIEW CHEST CLINICAL HISTORY: Seizure. FINDINGS: 2 AP, portable, upright chest radiographs are compared to study dated 05/05/2021. The cardiomediastinal silhouette is unremarkable. The lungs and pleural spaces are clear. No pneumothorax is seen. The bony thorax is grossly intact. IMPRESSION: No active disease in the chest. ACT 112: Negative or not required by law. Electronically signed by: Landon Almaraz M.D. 08/21/2023 11:37 PM [facility] Narrative Prior records/ancillary studies reviewed. Patient placed in seizure precautions immediately upon arrival. Nursing notes reviewed. Additional history obtained from EMS The patient's history was concerning for a possible seizure. Differential diagnosis: Etiologies such as infection, hypoglycemia, electrolyte abnormalities, cardiac sources, intracerebral event, trauma, toxicologic, neurologic, as well as others were entertained. Physical examination: As above. No signs of trauma. ER treatment provided: An order was placed for continuous cardiac monitoring. The monitor shows a rate of 60-100 with a sinus rhythm per my interpretation. IV fluids, Keppra On reassessment the patient felt better. Diagnostics interpretation by me: ECG: ordered for seizure ECG: Normal sinus, normal intervals, no acute ST-T wave changes. Impression normal sinus rhythm independently interpreted by myself I think arrhythmia is unlikely. EKG shows normal sinus rhythm with no interval abnormalities such as QT prolongation or WPW. There are no findings to suggest Brugada syndrome. Cardiac monitoring in the emergency department reveals no tachycardic or bradycardic dysrhythmia. Hypertrophic cardiomyopathy was considered but there are no clear historical elements pointing toward this. EKG is not suggestive. The QRS voltage is not extremely large and there are no suggestive Q waves. The labs Independently Interpreted by myself revealed hyponatremia. Mild anemia, Keppra level sent Imaging studies: Chest x-ray with no acute consolidation, pneumothorax or free air per my independent interpretation. The patient has a history of seizures and experienced another episode but patient sodium was low. He was hydrated as above. Keppra was given. Most likely patient had a seizure secondary to doing meth today. He is strongly encouraged not to use illegal drugs in the future. Medicine was consulted the case discussed. Patient be admitted to the medical service for further evaluation and treatment. He was informed paperwork was filled out to the state in regards to him not driving until cleared by the neurologist as he had a seizure today. No concerning physical findings or historical points were noted. Advanced diagnostics were deemed unnecessary. By the evaluation outlined above emergent etiologies such as infection, hypoglycemia, cardiac sources, intracerebral event, neurologic,as well as others were deemed relatively unlikely. The patient was counseled not to drive until cleared in follow-up and seizure precautions given. I gave my usual and customary discussion regarding these issues. The appropriate pedicab driver's license form was completed and submitted. The pt informed about the findings as listed above. All questions were answered and pleased with the treatment. Consultation: A consultation was placed with medicine and the case was discussed. Patient be admitted to the medical service for further evaluation and treatment. The chart was completed utilizing [employer] Speech voice recognition software. Grammatical errors, random word insertions, pronoun errors, and incomplete sentences are an occassional consequence of this system due to software limitations, ambient noise, and hardware issues. Any formal questions or concerns about the content, text, or information contained within the body of this dictation should be directly addressed to the physician assistant program director for clarification. Impression & Plan Acute hyponatremia, Seizure, Methamphetamine abuse Discharge Plan Visit Data Chief Complaint: Seizure ED Provider: Maykel Dodson ED Midlevel Provider: Leatha Smith Discharge Problem: Acute hyponatremia, Seizure, Methamphetamine abuse Patient Disposition: Admitted As Inpatient Condition: Good Forms Stand Alone Forms: My [facility] ishBowl Prescriptions Prescriptions: No Action spironolactone 100 mg tablet 100 mg PO QAM hydroxyzine pamoate 50 mg capsule 50 mg PO HS PRN (Reason: Sleep) omeprazole 40 mg capsule,delayed release(DR/EC) 40 mg PO QAM propranolol 10 mg tablet 10 mg PO DAILY Rx Instructions: ordered bid but takes daily. levetiracetam 750 mg tablet 750 mg PO BID Xifaxan 550 mg tablet 550 mg PO AMHS Abilify Maintena 300 mg suspension,extended rel syring 0 mg IM .MONTH Referrals Referrals: Albin Morales MD [Primary Care Provider] -
--- NOTE | 2023-08-21 23:38 | XRay Report ---
SINGLE VIEW CHEST CLINICAL HISTORY: Seizure. FINDINGS: 2 AP, portable, upright chest radiographs are compared to study dated 05/05/2021. The cardio mediastinal silhouette is unremarkable. The lungs and pleural spaces are clear. No pneumothorax is se en. The bony thorax is grossly intact. IMPRESSION: No active disease in the chest. ACT 112: Negative or not required by law. Electronically signed by: Landon Almaraz M.D. 08/21/2023 11:37 PM
[2023-08-22 00:11] LABS: Alanine Aminotransferase 69 U/L (7-52); Albumin Globulin Ratio 1.3 (0.9-2); Albumin Level 4.2 gm/dl (3.4-5.0); Alkaline Phosphatase 133 U/L (34-104); Anion Gap 8 (3-11); Aspartate Aminotransferase 43 U/L (13-39); BUN Creatinine Ratio 18.1 (10-20); Bilirubin,Total 0.6 mg/dl (0.2-1.0); Blood Urea Nitrogen 13 mg/dl (6-23); Calcium 9.5 mg/dl (8.6-10.3); Carbon Dioxide 23 mmol/L (21-32); Chloride 90 mmol/L (98-107); Creatine Kinase 431 U/L (30-223); Est GFR (African American) 138.1 ml/min; Est GFR (Non-African American) 119.2 ml/min; Globulin 3.2 gm/dl (2.5-4.0); Glucose 89 mg/dl (70-99(Fasting)); Magnesium 2.1 mg/dl (1.7-2.4); Potassium 4.3 mmol/L (3.5-5.1); Sodium 121 mmol/L (136-145); Total Protein 7.4 gm/dl (6.0-8.3)
[2023-08-22] MEDS ORDERED: levETIRAcetam 1,000 MG in 0.9 % SODIUM CHLORIDE 100 ML IV STA (00:46)
[2023-08-22 01:20] LABS: Amphetamines+Metham, Urine Pos (Neg); Barbiturates, Urine Neg (Neg); Benzodiazepine, Urine Neg (Neg); Cocaine, Urine Neg (Neg); MDMA (Ecstacy), Urine Pos (Neg); Marijuana, Urine Neg (Neg); Methadone, Urine Neg (Neg); Opiate, Urine Neg (Neg); Phencyclidine, Urine Neg (Neg)
--- NOTE | 2023-08-22 03:17 | History & Physical Report ---
Date of Service August 22, 2023 Assessment & Plan (1) Seizure: Plan: 38yo male presenting after a witnessed seizure. Patient with seizure disorder. He is on Keppra 750mg po BID. He reports compliance with this medication. Found to have acute hyponatremia with Na of 121. Possible source of seizure. -Admit to medical -Maintain seizure precautions -Continue Keppra 750mg po BID. Patient was given 1gm of Keppra in the ER -Repeat BMP now - no hypertonic saline given. If no improvement in saline will give small bolus of hypertonic saline -Encouraged patient to stop using methamphetamine (2) Acute hyponatremia: Plan: Na of 121. Low baseline of 130'2. Possible cause of seizure. Patient has been given 1L NSS. Repeat Na has improved to 126 -Check urine and serum osmolality -Check random urine Na -Repeat BMP q 6 hours (3) Liver failure: Plan: Patient with history of liver failure and cirrhosis. He has seen Hepatology in the past. Seems to be well compensated at present. Some elevation of liver labs - AST=43, ALT=69, CY=257. Bilirubin is normal at 0.6 -Continue Rifaximin 550mg po BID -Continue Spironolactone -Continue Propranolol -Repeat LFTs at 0900 History of Present Illness Chief Complaint: seizure Primary Care Provider: Albin Morales MD Ruslan Catherine is a 38yo male with history of GERD, Seizure disorder on Keppra presenting after a witnessed seizure at work at 21:30. Patient reports he has been feeling fine. This afternoon he had some flashing lights in his eyes and blurry vision prior to having a seizure. He then woke up and was told that he seized for approximately 1-2 minutes. Patient feels improved now. No further complaints. Allergies Allergy/AdvReac Type Severity Reaction Status Date / Time No Known Allergies Allergy Verified 08/22/23 02:59 Home Medications Medication Instructions Recorded Confirmed Type aripiprazole 300 mg suspension, 0 mg IM .MONTH 08/22/23 08/22/23 History extended rel. intramuscular syringe (Sergey Maldonado) hydroxyzine pamoate 50 mg capsule 50 mg PO HS PRN Sleep 08/22/23 08/22/23 History levetiracetam 750 mg tablet 750 mg PO BID 08/22/23 08/22/23 History omeprazole 40 mg capsule,delayed 40 mg PO QAM 08/22/23 08/22/23 History release propranolol 10 mg tablet 10 mg PO DAILY 08/22/23 08/22/23 History rifaximin 550 mg tablet (Xifaxan) 550 mg PO AMHS 08/22/23 08/22/23 History spironolactone 100 mg tablet 100 mg PO QAM 08/22/23 08/22/23 History Past Med/Surg History Medical History Acute alcoholic hepatitis Skin abrasion Difficult intravenous access GERD (gastroesophageal reflux disease) Seizure dx Summer 2020, [facility]. possible episode "patient had a syncopal episode at the grocery store April 2021, treated at [facility]". Acute cholecystitis due to biliary calculus no surgery Acute cholecystitis Acute liver failure History of opioid abuse Clean x 8 years, quit the methadone treatment June 2020. Edema Alcoholic fatty liver Multiple thermal rockwell hx - no surgery Surgical History H/O wisdom tooth extraction History of esophagogastroduodenoscopy (EGD) Family History Grandfather (Maternal) Parkinson disease Denies family history of Ovarian cancer Prostate cancer Myocardial infarction Breast cancer Colorectal cancer Social History Smoking Status: Current every day smoker Tobacco Type: Cigarettes Cigarettes Per Day: 1 pack; Second Hand Exposure: Yes; Do You Dip or Chew Tobacco: No; Hx Alcohol Use: No Hx Substance Use: Yes Last Used Substance: Unknown Substance Use Type Other:: methadone (quit June 2020) Preferred Language: Samoan Communication Ability: Effective Corrective Therapy Aide Required: No Beliefs That Will Affect Care: None Current Living Situation: Family Feels Safe at Home: Yes Safety Concerns: Feels Safe At This Time Assistive Devices: None Review of Systems Review of Systems: All systems reviewed & are unremarkable except as noted in HPI & below Physical Exam Physical Exam: General: patient resting comfortably, NAD, non-toxic in appearance, AA&O x 4 Skin: warm, dry, intact, no rashes or lesions HEENT: NC/AT, PERRL, EOMI, anicteric sclera, conjunctiva without injection, external ear normal to inspection and nontender, nares patent, moist mucus membranes, dentures in place, no oropharyngeal lesions, neck supple, trachea midline, no LAD, no thyromegaly, no JVD Heart: +S1/S2, regular, no m/r/g Lungs: equal air entry bilaterally, no rales/rhonchi/wheezes Abd: +BS, soft, NT/ND, no masses/organomegaly/ascites Ext: warm, 2+ pulses in UE/LE bilaterally, no clubbing/cyanosis or edema Neuro: nonfocal, patient AA&O x 4, speech intact, no facial droop, moving all extremities on command with equal strength 5/5 Results & Data Results & Data Vital Signs (Past 12 Hours) Vital Signs Pulse Resp BP Pulse Ox O2 Del Method 08/22/23 02:10 100 H 08/22/23 02:00 98 H 18 120/77 98 Room Air 08/22/23 01:00 93 H 17 120/75 99 Room Air 08/22/23 00:08 86 19 145/92 H 99 Room Air 08/21/23 22:54 99 Room Air 08/21/23 22:53 92 H 14 110/79 99 Room Air Laboratory Results Laboratory Results WBC 6.51 K/ul (4.8-10.8) 08/22/23 02:51 RBC 4.23 M/uL (4.70-6.10) L 08/22/23 02:51 Hgb 13.3 g/dl (14.0-18.0) L 08/22/23 02:51 Hct 35.8 % (42.0-52.0) L 08/22/23 02:51 MCV 84.6 fL (80.0-100.0) 08/22/23 02:51 MCH 31.4 pg (25.0-34.0) 08/22/23 02:51 MCHC 37.2 g/dL (32.0-36.0) H 08/22/23 02:51 RDW Std Deviation 37.6 fL (36.4-46.3) 08/22/23 02:51 RDW Coeff of Lenora 12.4 % (11.5-14.5) 08/22/23 02:51 Plt Count 157 K/uL (130-400) 08/22/23 02:51 MPV 10.4 fL (9.4-12.4) 08/22/23 02:51 Immature Gran % (Auto) 0.3 % 08/22/23 02:51 Neut % (Auto) 53.9 % 08/22/23 02:51 Lymph % (Auto) 33.3 % 08/22/23 02:51 [place] % (Auto) 10.4 % 08/22/23 02:51 Eos % (Auto) 1.8 % 08/22/23 02:51 Baso % (Auto) 0.3 % 08/22/23 02:51 Neut # (Auto) 3.50 K/uL (1.40-6.50) 08/22/23 02:51 Lymph # (Auto) 2.17 K/uL (1.20-3.40) 08/22/23 02:51 [place] # (Auto) 0.68 K/uL (0.11-0.59) H 08/22/23 02:51 Eos # (Auto) 0.12 K/uL (0.00-0.50) 08/22/23 02:51 Baso # (Auto) 0.02 K/uL (0.00-0.20) 08/22/23 02:51 Immature Gran # (Auto) 0.02 K/uL (0.01-0.20) 08/22/23 02:51 Absolute Nucleated RBC Cancelled 08/21/23 23:28 Nucleated RBC % (auto) Cancelled 08/21/23 23:28 Neutrophils % (Manual) Cancelled 08/21/23 23:28 Band Neutrophils % Cancelled 08/21/23 23:28 Lymphocytes % (Manual) Cancelled 08/21/23 23:28 Prolymphocyte % Cancelled 08/21/23 23:28 Reactive Lymphs % (Man) Cancelled 08/21/23 23:28 Monocytes % (Manual) Cancelled 08/21/23 23:28 Eosinophils % (Manual) Cancelled 08/21/23 23:28 Basophils % (Manual) Cancelled 08/21/23 23:28 Metamyelocytes % (Man) Cancelled 08/21/23 23:28 Myelocytes % (Man) Cancelled 08/21/23 23:28 Promyelocytes % (Man) Cancelled 08/21/23 23:28 Blast Cells % (Manual) Cancelled 08/21/23 23:28 Plasma Cell % (Manual) Cancelled 08/21/23 23:28 Other Cells % Cancelled 08/21/23 23:28 Nucleated RBC % Cancelled 08/21/23 23:28 Neutrophils # (Manual) Cancelled 08/21/23 23:28 Band Neutrophils # Cancelled 08/21/23 23:28 Total Absolute Neuts Cancelled 08/21/23 23:28 Lymphocytes # (Manual) Cancelled 08/21/23 23:28 Prolymphocyte # Cancelled 08/21/23 23:28 Reactive Lymphs # Cancelled 08/21/23 23:28 Total Abs Lymphocytes Cancelled 08/21/23 23:28 Monocytes # (Manual) Cancelled 08/21/23 23:28 Eosinophils # (Manual) Cancelled 08/21/23 23:28 Basophils # (Manual) Cancelled 08/21/23 23:28 Metamyelocytes # (Man) Cancelled 08/21/23 23:28 Myelocytes # (Manual) Cancelled 08/21/23 23:28 Promyelocytes # (Man) Cancelled 08/21/23 23:28 Blast Cells # (Man) Cancelled 08/21/23 23:28 Plasma Cell # (Manual) Cancelled 08/21/23 23:28 Other Cells # Cancelled 08/21/23 23:28 Nucleated RBCs # (Man) Cancelled 08/21/23 23:28 Hypersegmented Neuts Cancelled 08/21/23 23:28 Hyposegmented Neuts Cancelled 08/21/23 23:28 Hypogranular Neuts Cancelled 08/21/23 23:28 Large Granular Lymphs Cancelled 08/21/23 23:28 # Lrg Granular Lymphs Cancelled 08/21/23 23:28 Hairy Cells Cancelled 08/21/23 23:28 Smudge Cells Cancelled 08/21/23 23:28 Toxic Granulation Cancelled 08/21/23 23:28 Toxic Vacuolation Cancelled 08/21/23 23:28 Dohle Bodies Cancelled 08/21/23 23:28 Ankush Rods Cancelled 08/21/23 23:28 Platelet Estimate Cancelled 08/21/23 23:28 Hypogranular Platelets Cancelled 08/21/23 23:28 Giant Platelets Cancelled 08/21/23 23:28 Platelet Satelliting Cancelled 08/21/23 23:28 RBC Morphology Cancelled 08/21/23 23:28 Polychromasia Cancelled 08/21/23 23:28 Hypochromasia Cancelled 08/21/23 23:28 Poikilocytosis Cancelled 08/21/23 23:28 Basophilic Stippling Cancelled 08/21/23 23:28 Anisocytosis Cancelled 08/21/23 23:28 Microcytosis Cancelled 08/21/23 23:28 Macrocytosis Cancelled 08/21/23 23:28 Spherocytes Cancelled 08/21/23 23:28 Pappenheimer Bodies Cancelled 08/21/23 23:28 Sickle Cells Cancelled 08/21/23 23:28 Target Cells Cancelled 08/21/23 23:28 Tear Drop Cells Cancelled 08/21/23 23:28 Ovalocytes Cancelled 08/21/23 23:28 Stomatocytes Cancelled 08/21/23 23:28 [place] Bodies Cancelled 08/21/23 23:28 Echinocytes Cancelled 08/21/23 23:28 Acanthocytes (Spur) Cancelled 08/21/23 23:28 Rouleaux Cancelled 08/21/23 23:28 RBC Agglutinates Cancelled 08/21/23 23:28 Schistocytes Cancelled 08/21/23 23:28 Sezary Cell Cancelled 08/21/23 23:28 Sodium 121 mmol/L (136-145) L 08/21/23 23:28 Potassium 4.3 mmol/L (3.5-5.1) 08/21/23 23:28 Chloride 90 mmol/L (98-107) L 08/21/23 23:28 Carbon Dioxide 23 mmol/L (21-32) 08/21/23 23:28 Anion Gap 8 (3-11) 08/21/23 23:28 BUN 13 mg/dl (6-23) 08/21/23 23:28 Creatinine 0.72 mg/dl (0.6-1.4) 08/21/23 23:28 Est Cr Clr Drug Dosing Not Reportable 08/21/23 23:28 Est GFR ( Amer) 138.1 ml/min 08/21/23 23:28 Est GFR (Non-Af Amer) 119.2 ml/min 08/21/23 23:28 BUN/Creatinine Ratio 18.1 (10-20) 08/21/23 23:28 Glucose 89 mg/dl (70-99(Fasting)) 08/21/23 23:28 Calcium 9.5 mg/dl (8.6-10.3) 08/21/23 23:28 Magnesium 2.1 mg/dl (1.7-2.4) 08/21/23 23:28 Total Bilirubin 0.6 mg/dl (0.2-1.0) 08/21/23 23:28 AST 43 U/L (13-39) H 08/21/23 23:28 ALT 69 U/L (7-52) H 08/21/23 23:28 Alkaline Phosphatase 133 U/L (34-104) H 08/21/23 23:28 Total Creatine Kinase 431 U/L (30-223) H 08/21/23 23:28 Total Protein 7.4 gm/dl (6.0-8.3) 08/21/23 23:28 Albumin 4.2 gm/dl (3.4-5.0) 08/21/23 23:28 Globulin 3.2 gm/dl (2.5-4.0) 08/21/23 23:28 Albumin/Globulin Ratio 1.3 (0.9-2) 08/21/23 23:28 Urine Opiates Screen Neg (Neg) 08/22/23 00:13 Ur Methadone, Qual Neg (Neg) 08/22/23 00:13 Urine Barbiturates Neg (Neg) 08/22/23 00:13 Ur Phencyclidine (PCP) Neg (Neg) 08/22/23 00:13 U Amphetamin/Meth Scrn Pos (Neg) H 08/22/23 00:13 MDMA (Ecstasy) Screen Pos (Neg) H 08/22/23 00:13 U Benzodiazepines Scrn Neg (Neg) 08/22/23 00:13 Ur Cocaine Metabolite Neg (Neg) 08/22/23 00:13 U Marijuana (THC) Screen Neg (Neg) 08/22/23 00:13 SARS-CoV-2, RNA, NAAT NEGATIVE (NEGATIVE) 08/22/23 02:44 Blood Parasites ID Cancelled 08/21/23 23:28 Impressions Chest X-Ray 08/21/23 22:48 SINGLE VIEW CHEST CLINICAL HISTORY: Seizure. FINDINGS: 2 AP, portable, upright chest radiographs are compared to study dated 05/05/2021. The cardiomediastinal silhouette is unremarkable. The lungs and pleural spaces are clear. No pneumothorax is seen. The bony thorax is grossly intact. IMPRESSION: No active disease in the chest. ACT 112: Negative or not required by law. Electronically signed by: Landon Almaraz M.D. 08/21/2023 11:37 PM Diagnostic Findings Laboratory Results WBC 6.51 K/ul (4.8-10.8) 08/22/23 02:51 RBC 4.23 M/uL (4.70-6.10) L 08/22/23 02:51 Hgb 13.3 g/dl (14.0-18.0) L 08/22/23 02:51 Hct 35.8 % (42.0-52.0) L 08/22/23 02:51 MCV 84.6 fL (80.0-100.0) 08/22/23 02:51 MCH 31.4 pg (25.0-34.0) 08/22/23 02:51 MCHC 37.2 g/dL (32.0-36.0) H 08/22/23 02:51 RDW Std Deviation 37.6 fL (36.4-46.3) 08/22/23 02:51 RDW Coeff of Lenora 12.4 % (11.5-14.5) 08/22/23 02:51 Plt Count 157 K/uL (130-400) 08/22/23 02:51 MPV 10.4 fL (9.4-12.4) 08/22/23 02:51 Immature Gran % (Auto) 0.3 % 08/22/23 02:51 Neut % (Auto) 53.9 % 08/22/23 02:51 Lymph % (Auto) 33.3 % 08/22/23 02:51 [place] % (Auto) 10.4 % 08/22/23 02:51 Eos % (Auto) 1.8 % 08/22/23 02:51 Baso % (Auto) 0.3 % 08/22/23 02:51 Neut # (Auto) 3.50 K/uL (1.40-6.50) 08/22/23 02:51 Lymph # (Auto) 2.17 K/uL (1.20-3.40) 08/22/23 02:51 [place] # (Auto) 0.68 K/uL (0.11-0.59) H 08/22/23 02:51 Eos # (Auto) 0.12 K/uL (0.00-0.50) 08/22/23 02:51 Baso # (Auto) 0.02 K/uL (0.00-0.20) 08/22/23 02:51 Immature Gran # (Auto) 0.02 K/uL (0.01-0.20) 08/22/23 02:51 Absolute Nucleated RBC Cancelled 08/21/23 23:28 Nucleated RBC % (auto) Cancelled 08/21/23 23:28 Neutrophils % (Manual) Cancelled 08/21/23 23:28 Band Neutrophils % Cancelled 08/21/23 23:28 Lymphocytes % (Manual) Cancelled 08/21/23 23:28 Prolymphocyte % Cancelled 08/21/23 23:28 Reactive Lymphs % (Man) Cancelled 08/21/23 23:28 Monocytes % (Manual) Cancelled 08/21/23 23:28 Eosinophils % (Manual) Cancelled 08/21/23 23:28 Basophils % (Manual) Cancelled 08/21/23 23:28 Metamyelocytes % (Man) Cancelled 08/21/23 23:28 Myelocytes % (Man) Cancelled 08/21/23 23:28 Promyelocytes % (Man) Cancelled 08/21/23 23:28 Blast Cells % (Manual) Cancelled 08/21/23 23:28 Plasma Cell % (Manual) Cancelled 08/21/23 23:28 Other Cells % Cancelled 08/21/23 23:28 Nucleated RBC % Cancelled 08/21/23 23:28 Neutrophils # (Manual) Cancelled 08/21/23 23:28 Band Neutrophils # Cancelled 08/21/23 23:28 Total Absolute Neuts Cancelled 08/21/23 23:28 Lymphocytes # (Manual) Cancelled 08/21/23 23:28 Prolymphocyte # Cancelled 08/21/23 23:28 Reactive Lymphs # Cancelled 08/21/23 23:28 Total Abs Lymphocytes Cancelled 08/21/23 23:28 Monocytes # (Manual) Cancelled 08/21/23 23:28 Eosinophils # (Manual) Cancelled 08/21/23 23:28 Basophils # (Manual) Cancelled 08/21/23 23:28 Metamyelocytes # (Man) Cancelled 08/21/23 23:28 Myelocytes # (Manual) Cancelled 08/21/23 23:28 Promyelocytes # (Man) Cancelled 08/21/23 23:28 Blast Cells # (Man) Cancelled 08/21/23 23:28 Plasma Cell # (Manual) Cancelled 08/21/23 23:28 Other Cells # Cancelled 08/21/23 23:28 Nucleated RBCs # (Man) Cancelled 08/21/23 23:28 Hypersegmented Neuts Cancelled 08/21/23 23:28 Hyposegmented Neuts Cancelled 08/21/23 23:28 Hypogranular Neuts Cancelled 08/21/23 23:28 Large Granular Lymphs Cancelled 08/21/23 23:28 # Lrg Granular Lymphs Cancelled 08/21/23 23:28 Hairy Cells Cancelled 08/21/23 23:28 Smudge Cells Cancelled 08/21/23 23:28 Toxic Granulation Cancelled 08/21/23 23:28 Toxic Vacuolation Cancelled 08/21/23 23:28 Dohle Bodies Cancelled 08/21/23 23:28 Ankush Rods Cancelled 08/21/23 23:28 Platelet Estimate Cancelled 08/21/23 23:28 Hypogranular Platelets Cancelled 08/21/23 23:28 Giant Platelets Cancelled 08/21/23 23:28 Platelet Satelliting Cancelled 08/21/23 23:28 RBC Morphology Cancelled 08/21/23 23:28 Polychromasia Cancelled 08/21/23 23:28 Hypochromasia Cancelled 08/21/23 23:28 Poikilocytosis Cancelled 08/21/23 23:28 Basophilic Stippling Cancelled 08/21/23 23:28 Anisocytosis Cancelled 08/21/23 23:28 Microcytosis Cancelled 08/21/23 23:28 Macrocytosis Cancelled 08/21/23 23:28 Spherocytes Cancelled 08/21/23 23:28 Pappenheimer Bodies Cancelled 08/21/23 23:28 Sickle Cells Cancelled 08/21/23 23:28 Target Cells Cancelled 08/21/23 23:28 Tear Drop Cells Cancelled 08/21/23 23:28 Ovalocytes Cancelled 08/21/23 23:28 Stomatocytes Cancelled 08/21/23 23:28 [place] Bodies Cancelled 08/21/23 23:28 Echinocytes Cancelled 08/21/23 23:28 Acanthocytes (Spur) Cancelled 08/21/23 23:28 Rouleaux Cancelled 08/21/23 23:28 RBC Agglutinates Cancelled 08/21/23 23:28 Schistocytes Cancelled 08/21/23 23:28 Sezary Cell Cancelled 08/21/23 23:28 Sodium 126 mmol/L (136-145) L 08/22/23 02:51 Potassium 3.9 mmol/L (3.5-5.1) 08/22/23 02:51 Chloride 97 mmol/L (98-107) L 08/22/23 02:51 Carbon Dioxide 24 mmol/L (21-32) 08/22/23 02:51 Anion Gap 5 (3-11) 08/22/23 02:51 BUN 12 mg/dl (6-23) 08/22/23 02:51 Creatinine 0.67 mg/dl (0.6-1.4) 08/22/23 02:51 Est Cr Clr Drug Dosing Not Reportable 08/22/23 02:51 Est GFR ( Amer) 142.3 ml/min 08/22/23 02:51 Est GFR (Non-Af Amer) 122.8 ml/min 08/22/23 02:51 BUN/Creatinine Ratio 17.9 (10-20) 08/22/23 02:51 Glucose 122 mg/dl (70-99(Fasting)) H 08/22/23 02:51 Calcium 8.5 mg/dl (8.6-10.3) L 08/22/23 02:51 Magnesium 2.1 mg/dl (1.7-2.4) 08/21/23 23:28 Total Bilirubin 0.6 mg/dl (0.2-1.0) 08/21/23 23:28 AST 43 U/L (13-39) H 08/21/23 23:28 ALT 69 U/L (7-52) H 08/21/23 23:28 Alkaline Phosphatase 133 U/L (34-104) H 08/21/23 23:28 Total Creatine Kinase 431 U/L (30-223) H 08/21/23 23:28 Total Protein 7.4 gm/dl (6.0-8.3) 08/21/23 23:28 Albumin 4.2 gm/dl (3.4-5.0) 08/21/23 23:28 Globulin 3.2 gm/dl (2.5-4.0) 08/21/23 23:28 Albumin/Globulin Ratio 1.3 (0.9-2) 08/21/23 23:28 Urine Opiates Screen Neg (Neg) 08/22/23 00:13 Ur Methadone, Qual Neg (Neg) 08/22/23 00:13 Urine Barbiturates Neg (Neg) 08/22/23 00:13 Ur Phencyclidine (PCP) Neg (Neg) 08/22/23 00:13 U Amphetamin/Meth Scrn Pos (Neg) H 08/22/23 00:13 MDMA (Ecstasy) Screen Pos (Neg) H 08/22/23 00:13 U Benzodiazepines Scrn Neg (Neg) 08/22/23 00:13 Ur Cocaine Metabolite Neg (Neg) 08/22/23 00:13 U Marijuana (THC) Screen Neg (Neg) 08/22/23 00:13 SARS-CoV-2, RNA, NAAT NEGATIVE (NEGATIVE) 08/22/23 02:44 Blood Parasites ID Cancelled 08/21/23 23:28 Impressions Chest X-Ray 08/21/23 22:48 SINGLE VIEW CHEST CLINICAL HISTORY: Seizure. FINDINGS: 2 AP, portable, upright chest radiographs are compared to study dated 05/05/2021. The cardiomediastinal silhouette is unremarkable. The lungs and pleural spaces are clear. No pneumothorax is seen. The bony thorax is grossly intact. IMPRESSION: No active disease in the chest. ACT 112: Negative or not required by law. Electronically signed by: Landon Almaraz M.D. 08/21/2023 11:37 PM PG Care Time/CCT Total # of Minutes Spent Total Time Spent with Patient: Total time spent is greater than 50% in coordination of care (as documented) at patient's floor/unit and/or counseling patient: Coding Level of Care Code 47311 INT INP/OBS CARE 2MIN Diagnoses Seizure R56.9 Acute hyponatremia E87.1 Liver failure K72.00 Hepatic coma status: without hepatic coma Liver failure chronicity: acute (3) Liver failure Hepatic coma status: without hepatic coma Liver failure chronicity: acute Qualified Code(s): K72.00 - Acute and subacute hepatic failure without coma
[2023-08-22 03:23] LABS: Basophils # (auto) 0.02 K/uL (0.00-0.20); Basophils % (auto) 0.3 %; Eosinophils # (auto) 0.12 K/uL (0.00-0.50); Eosinophils % (auto) 1.8 %; Hematocrit (blood only) 35.8 % (42.0-52.0); Hemoglobin 13.3 g/dl (14.0-18.0); Immature Granulocytes # (auto) 0.02 K/uL (0.01-0.20); Immature Granulocytes % (auto) 0.3 %; Lymphocytes # (auto) 2.17 K/uL (1.20-3.40); Lymphocytes % (auto) 33.3 %; Mean Corpuscular Hemoglobin 31.4 pg (25.0-34.0); Mean Corpuscular Hgb Conc 37.2 g/dL (32.0-36.0); Mean Corpuscular Volume 84.6 fL (80.0-100.0); Mean Platelet Volume 10.4 fL (9.4-12.4); Monocytes # (auto) 0.68 K/uL (0.11-0.59); Monocytes % (auto) 10.4 %; Neutrophils % (auto) 53.9 %; Platelet Count 157 K/uL (130-400); RDW Coefficient of Variation 12.4 % (11.5-14.5); RDW Standard Deviation 37.6 fL (36.4-46.3); Red Blood Count 4.23 M/uL (4.70-6.10); White Blood Count 6.51 K/ul (4.8-10.8)
[2023-08-22 03:37] LABS: Anion Gap 5 (3-11); BUN Creatinine Ratio 17.9 (10-20); Blood Urea Nitrogen 12 mg/dl (6-23); Calcium 8.5 mg/dl (8.6-10.3); Carbon Dioxide 24 mmol/L (21-32); Chloride 97 mmol/L (98-107); Est GFR (African American) 142.3 ml/min; Est GFR (Non-African American) 122.8 ml/min; Glucose 122 mg/dl (70-99(Fasting)); Potassium 3.9 mmol/L (3.5-5.1); Sodium 126 mmol/L (136-145)
[2023-08-22] MEDS ORDERED: ONDANSETRON INJ 2 MG/ML 2 ML VIAL IV PRN (04:35)
[2023-08-22] MEDS ORDERED: ACETAMINOPHEN 325 MG TAB PO PRN (04:35)
[2023-08-22] MEDS ORDERED: hydrOXYzine HCl 25 MG TAB PO PRN (05:16)
--- NOTE | 2023-08-22 07:36 | Electrocardiogram Report ---
Test Reason : Blood Pressure : / mmHG Vent. Rate : 089 BPM Atrial Rate : 089 BPM P-R Int : 158 ms QRS Dur : 080 ms QT Int : 360 ms P-R-T Axes : 077 047 064 degrees QTc Int : 438 ms Normal sinus rhythm Normal ECG When compared with ECG of 05-MAY-2021 09:53, T wave amplitude has increased in Inferior leads Confirmed by Anthony Elise ([id number]) on 08/22/2023 7:36:22 AM Referred By: REFERRED SELF Confirmed By:Anthony Elise
[2023-08-22] MEDS ORDERED: PANTOprazole 40 MG TAB PO SCH (09:00)
[2023-08-22] MEDS ORDERED: NICOTINE 21 MG/24 HR TDSY TD SCH (09:00)
[2023-08-22] MEDS ORDERED: SPIRONOLACTONE 100 MG TAB PO SCH (09:00)
[2023-08-22] MEDS ORDERED: levETIRAcetam 250 MG TAB PO SCH (09:00)
[2023-08-22] MEDS ORDERED: PROPRANOLOL HCL 10 MG TAB PO SCH (09:00)
[2023-08-22] MEDS ORDERED: rifAXIMin 550 MG TABLET PO SCH (09:00)
[2023-08-22 09:57] LABS: BUN Creatinine Ratio 14.7 (10-20); Bilirubin Direct 0.1 mg/dl (0-0.2); Bilirubin,Total 0.6 mg/dl (0.2-1.0); Creatinine Clr Calc Pharmacy 130.5 ml/min; Est GFR (African American) 135.8 ml/min; Est GFR (Non-African American) 117.2 ml/min; Potassium 4.4 mmol/L (3.5-5.1); Total Protein 6.8 gm/dl (6.0-8.3)
--- NOTE | 2023-08-22 13:55 | Nephrology Consultation ---
Date of Consultation August 22, 2023 Assessment & Plan (1) Acute hyponatremia: Chronic, euvolemic. Unclear if this was secondary to the seizure or preceded the event. Sodium has improved. Ruslan has no active symptoms. Importance of close outpatient follow up was stressed. Urine osmolality and rate of recovery argue against significant SAIDH. Fluid restriction not required. If sodium remains stable on repeat testing, I suspect discharge with close outpatient follow up would be acceptable from a nephrology perspective. Please check a repeat metabolic profile within next 3 days and arrange follow up in the nephrology clinic within 2 weeks. (2) Methamphetamine abuse: Health risks of meth / substance abuse discussed in detail. Encourage close follow up with counselor and psychiatrist. (3) Seizure: Management per hospitalist team. Remains on Levetiracetam. History of Present Illness Reason for Consultation: hyponatremia Requesting Physician: Morgan Rao Attending Physician: Morgan Rao History of Present Illness Mr. Ruslan Catherine is a 38 year-old male with depression, history of substance abuse (past history of alcohol abuse, recent methadone use), cigarette smoker, chronic liver disease, chronic mild hyponatremia, and a history of seizure disorder. Symptoms of depression have been controlled with maintenance Abilify. Ruslan presented to [facility] yesterday s/p a witnessed tonic clonic seizure sustained while at work. He is maintained on levetiracetam. Ruslan reports compliance with the medication. He has felt well. His last seizure was ~2 years ago. Ruslan felt well during the day yesterday. He had used methadone within the past 24 hours but denies any significant reaction. He denies use of MDMA. He denies any recent alcohol use. 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 Ruslan reports eating well. He denies fluid retention or edema. He denies excessive water consumption. He was admitted to [facility] with a serum sodium of 121 mmol/L. Serum electrolytes otherwise normal. Creatinine normal. Sodium improved to 126 mmol/L within 5 hours and following the administration of 1 L NSS. Urine osmolality ~178 mOsm/L. Serum sodium measured at 132 mmol/L this AM. Ruslan states that he feels well. He denies any symptoms of dysnatremia. Appetite is good. He ate a large breakfast this AM. He hopes to be discharged home later today. Allergies Allergy/AdvReac Type Severity Reaction Status Date / Time No Known Allergies Allergy Verified 08/22/23 02:59 Home Medications Medication Instructions Recorded Confirmed Type aripiprazole 300 mg suspension, 0 mg IM .MONTH 08/22/23 08/22/23 History extended rel. intramuscular syringe (Dengjean Joel) hydroxyzine pamoate 50 mg capsule 50 mg PO HS PRN Sleep 08/22/23 08/22/23 History levetiracetam 750 mg tablet 750 mg PO BID 08/22/23 08/22/23 History omeprazole 40 mg capsule,delayed 40 mg PO QAM 08/22/23 08/22/23 History release propranolol 10 mg tablet 10 mg PO DAILY 08/22/23 08/22/23 History rifaximin 550 mg tablet (Xifaxan) 550 mg PO AMHS 08/22/23 08/22/23 History spironolactone 100 mg tablet 100 mg PO QAM 08/22/23 08/22/23 History Patient History Medical History Acute alcoholic hepatitis Skin abrasion Difficult intravenous access GERD (gastroesophageal reflux disease) Seizure dx Summer 2020, [place] [facility]. possible episode "patient had a syncopal episode at the grocery store April 2021, treated at [facility]". Acute cholecystitis due to biliary calculus no surgery Acute cholecystitis Acute liver failure History of opioid abuse Clean x 8 years, quit the methadone treatment June 2020. Edema Alcoholic fatty liver Multiple thermal rockwell hx - no surgery Surgical History H/O wisdom tooth extraction History of esophagogastroduodenoscopy (EGD) Family History Grandfather (Maternal) Parkinson disease Denies family history of Ovarian cancer Prostate cancer Myocardial infarction Breast cancer Colorectal cancer Social History Smoking Status: Current every day smoker Tobacco Type: Cigarettes Cigarettes Per Day: 1 pack; Second Hand Exposure: Yes; Do You Dip or Chew Tobacco: No; Hx Alcohol Use: No Hx Substance Use: Yes Last Used Substance: Unknown Substance Use Type Other:: methadone (quit June 2020) Preferred Language: Japanese Communication Ability: Effective Supervisor St[employer] Department Required: No Beliefs That Will Affect Care: None Current Living Situation: Family Feels Safe at Home: Yes Safety Concerns: Feels Safe At This Time Assistive Devices: None Review of Systems Review of Systems: All systems reviewed & are unremarkable except as noted in HPI & below Physical Exam Constitutional: well developed; no acute distress Eyes: no scleral abnormality and no corneal abnormality ENMT: Mouth: no oral mucosal abnormality and oral mucous membranes not dry Neck: normal visual inspection and trachea midline Respiratory: normal respiratory effort Auscultation: lungs clear to auscultation bilaterally Cardiovascular: Rate/Rhythm: regular rate Heart Sounds: normal S1 and normal S2 Extremities: no edema Musculoskeletal: Extremities: no cyanosis and no clubbing Skin: normal turgor; no lesions Neurologic: Motor/Sensory: no tremor and no asterixis Psychiatric: Orientation: alert and oriented x 3 Results & Data Vital Signs (Past 12 Hours) Vital Signs Temp Pulse Pulse Resp BP BP Pulse Ox 08/22/23 07:39 36.4 C L 84 14 101/58 L 97 08/22/23 04:50 08/22/23 04:50 08/22/23 04:50 36.4 C L 91 H 16 108/70 98 08/22/23 04:37 36.4 C L 91 H 16 108/70 98 08/22/23 03:00 89 20 108/68 97 08/22/23 02:10 100 H 08/22/23 02:00 98 H 18 120/77 98 O2 Del Method 08/22/23 07:39 Room Air 08/22/23 04:50 Room Air 08/22/23 04:50 Room Air 08/22/23 04:50 Room Air 08/22/23 04:37 Room Air 08/22/23 03:00 Room Air 08/22/23 02:10 08/22/23 02:00 Room Air Laboratory Results Laboratory Results - last 24 hr 08/21/23 08/22/23 08/22/23 23:28 00:13 02:44 WBC Cancelled RBC Cancelled Hgb Cancelled Hct Cancelled MCV Cancelled MCH Cancelled MCHC Cancelled RDW Std Deviation Cancelled RDW Coeff of Lenora Cancelled Plt Count Cancelled MPV Cancelled Immature Gran % (Auto) Cancelled Neut % (Auto) Cancelled Lymph % (Auto) Cancelled [place] % (Auto) Cancelled Eos % (Auto) Cancelled Baso % (Auto) Cancelled Neut # (Auto) Cancelled Lymph # (Auto) Cancelled [place] # (Auto) Cancelled Eos # (Auto) Cancelled Baso # (Auto) Cancelled Immature Gran # (Auto) Cancelled Absolute Nucleated RBC Cancelled Nucleated RBC % (auto) Cancelled Neutrophils % (Manual) Cancelled Band Neutrophils % Cancelled Lymphocytes % (Manual) Cancelled Prolymphocyte % Cancelled Reactive Lymphs % (Man) Cancelled Monocytes % (Manual) Cancelled Eosinophils % (Manual) Cancelled Basophils % (Manual) Cancelled Metamyelocytes % (Man) Cancelled Myelocytes % (Man) Cancelled Promyelocytes % (Man) Cancelled Blast Cells % (Manual) Cancelled Plasma Cell % (Manual) Cancelled Other Cells % Cancelled Nucleated RBC % Cancelled Neutrophils # (Manual) Cancelled Band Neutrophils # Cancelled Total Absolute Neuts Cancelled Lymphocytes # (Manual) Cancelled Prolymphocyte # Cancelled Reactive Lymphs # Cancelled Total Abs Lymphocytes Cancelled Monocytes # (Manual) Cancelled Eosinophils # (Manual) Cancelled Basophils # (Manual) Cancelled Metamyelocytes # (Man) Cancelled Myelocytes # (Manual) Cancelled Promyelocytes # (Man) Cancelled Blast Cells # (Man) Cancelled Plasma Cell # (Manual) Cancelled Other Cells # Cancelled Nucleated RBCs # (Man) Cancelled Hypersegmented Neuts Cancelled Hyposegmented Neuts Cancelled Hypogranular Neuts Cancelled Large Granular Lymphs Cancelled # Lrg Granular Lymphs Cancelled Hairy Cells Cancelled Smudge Cells Cancelled Toxic Granulation Cancelled Toxic Vacuolation Cancelled Dohle Bodies Cancelled Ankush Rods Cancelled Platelet Estimate Cancelled Hypogranular Platelets Cancelled Giant Platelets Cancelled Platelet Satelliting Cancelled RBC Morphology Cancelled Polychromasia Cancelled Hypochromasia Cancelled Poikilocytosis Cancelled Basophilic Stippling Cancelled Anisocytosis Cancelled Microcytosis Cancelled Macrocytosis Cancelled Spherocytes Cancelled Pappenheimer Bodies Cancelled Sickle Cells Cancelled Target Cells Cancelled Tear Drop Cells Cancelled Ovalocytes Cancelled Stomatocytes Cancelled [place] Bodies Cancelled Echinocytes Cancelled Acanthocytes (Spur) Cancelled Rouleaux Cancelled RBC Agglutinates Cancelled Schistocytes Cancelled Sezary Cell Cancelled Sodium 121 L Potassium 4.3 Chloride 90 L Carbon Dioxide 23 Anion Gap 8 BUN 13 Creatinine 0.72 Est Cr Clr Drug Dosing Not Reportable Est GFR ( Amer) 138.1 Est GFR (Non-Af Amer) 119.2 BUN/Creatinine Ratio 18.1 Glucose 89 Osmolality Calcium 9.5 Magnesium 2.1 Total Bilirubin 0.6 Direct Bilirubin AST 43 H ALT 69 H Alkaline Phosphatase 133 H Total Creatine Kinase 431 H Total Protein 7.4 Albumin 4.2 Globulin 3.2 Albumin/Globulin Ratio 1.3 Urine Osmolality Ur Random Sodium Urine Opiates Screen Neg Ur Methadone, Qual Neg Urine Barbiturates Neg Levetiracetam Ur Phencyclidine (PCP) Neg U Amphetamines Confirm Pending U Amphetamin/Meth Scrn Pos H U Methamphetamin Confrm Pending Urine MDEA Pending MDMA (Ecstasy) Screen Pos H MDMA Pending Urine MDMA Pending U Benzodiazepines Scrn Neg Ur Cocaine Metabolite Neg U Marijuana (THC) Screen Neg Drug Screen Comment Pending SARS-CoV-2, RNA, NAAT NEGATIVE Blood Parasites ID Cancelled 08/22/23 08/22/23 02:51 09:13 WBC 6.51 RBC 4.23 L Hgb 13.3 L Hct 35.8 L MCV 84.6 MCH 31.4 MCHC 37.2 H RDW Std Deviation 37.6 RDW Coeff of Lenora 12.4 Plt Count 157 MPV 10.4 Immature Gran % (Auto) 0.3 Neut % (Auto) 53.9 Lymph % (Auto) 33.3 [place] % (Auto) 10.4 Eos % (Auto) 1.8 Baso % (Auto) 0.3 Neut # (Auto) 3.50 Lymph # (Auto) 2.17 [place] # (Auto) 0.68 H Eos # (Auto) 0.12 Baso # (Auto) 0.02 Immature Gran # (Auto) 0.02 Absolute Nucleated RBC Nucleated RBC % (auto) Neutrophils % (Manual) Band Neutrophils % Lymphocytes % (Manual) Prolymphocyte % Reactive Lymphs % (Man) Monocytes % (Manual) Eosinophils % (Manual) Basophils % (Manual) Metamyelocytes % (Man) Myelocytes % (Man) Promyelocytes % (Man) Blast Cells % (Manual) Plasma Cell % (Manual) Other Cells % Nucleated RBC % Neutrophils # (Manual) Band Neutrophils # Total Absolute Neuts Lymphocytes # (Manual) Prolymphocyte # Reactive Lymphs # Total Abs Lymphocytes Monocytes # (Manual) Eosinophils # (Manual) Basophils # (Manual) Metamyelocytes # (Man) Myelocytes # (Manual) Promyelocytes # (Man) Blast Cells # (Man) Plasma Cell # (Manual) Other Cells # Nucleated RBCs # (Man) Hypersegmented Neuts Hyposegmented Neuts Hypogranular Neuts Large Granular Lymphs # Lrg Granular Lymphs Hairy Cells Smudge Cells Toxic Granulation Toxic Vacuolation Dohle Bodies Ankush Rods Platelet Estimate Hypogranular Platelets Giant Platelets Platelet Satelliting RBC Morphology Polychromasia Hypochromasia Poikilocytosis Basophilic Stippling Anisocytosis Microcytosis Macrocytosis Spherocytes Pappenheimer Bodies Sickle Cells Target Cells Tear Drop Cells Ovalocytes Stomatocytes [place] Bodies Echinocytes Acanthocytes (Spur) Rouleaux RBC Agglutinates Schistocytes Sezary Cell Sodium 126 L 132 L Potassium 3.9 4.4 Chloride 97 L 102 Carbon Dioxide 24 24 Anion Gap 5 6 BUN 12 11 Creatinine 0.67 0.75 Est Cr Clr Drug Dosing Not Reportable 130.5 Est GFR ( Amer) 142.3 135.8 Est GFR (Non-Af Amer) 122.8 117.2 BUN/Creatinine Ratio 17.9 14.7 Glucose 122 H 124 H Osmolality 267 L Calcium 8.5 L 9.0 Magnesium Total Bilirubin 0.6 Direct Bilirubin 0.1 AST 41 H ALT 59 H Alkaline Phosphatase 124 H Total Creatine Kinase Total Protein 6.8 Albumin 4.0 Globulin Albumin/Globulin Ratio Urine Osmolality 178 L Ur Random Sodium 12 Urine Opiates Screen Ur Methadone, Qual Urine Barbiturates Levetiracetam Pending Ur Phencyclidine (PCP) U Amphetamines Confirm U Amphetamin/Meth Scrn U Methamphetamin Confrm Urine MDEA MDMA (Ecstasy) Screen MDMA Urine MDMA U Benzodiazepines Scrn Ur Cocaine Metabolite U Marijuana (THC) Screen Drug Screen Comment SARS-CoV-2, RNA, NAAT Blood Parasites ID PG Care Time/CCT Total # of Minutes Spent Total Time Spent with Patient: Total time spent is greater than 50% in coordination of care (as documented) at patient's floor/unit and/or counseling patient: Coding Level of Care Code 12617 IN/OBS CONSULT LVL 4,60M Diagnoses Acute hyponatremia E87.1 Methamphetamine abuse F15.10 Seizure R56.9
[2023-08-22 15:21] LABS: BUN Creatinine Ratio 15.8 (10-20); Calcium 8.9 mg/dl (8.6-10.3); Creatinine Clr Calc Pharmacy 128.8 ml/min; Est GFR (African American) 135.1 ml/min; Est GFR (Non-African American) 116.6 ml/min; Potassium 4.7 mmol/L (3.5-5.1)
--- NOTE | 2023-08-22 17:04 | Discharge Summary ---
Date of Service August 22, 2023 Admission HPI Per Admitting Provider Ruslan Catherine is a 38yo male with history of GERD, Seizure disorder on Keppra presenting after a witnessed seizure at work at 21:30. Patient reports he has been feeling fine. This afternoon he had some flashing lights in his eyes and blurry vision prior to having a seizure. He then woke up and was told that he seized for approximately 1-2 minutes. Patient feels improved now. No further complaints. Principal Diagnosis seizure Discharge Exam gen aaox3 pleasant nad heent mmm breathing unlabored no accessory muscles good effort skin no rashes no pallor or icterus neuro no focal deficits Discharge Data Allergies Allergy/AdvReac Type Severity Reaction Status Date / Time No Known Allergies Allergy Verified 08/22/23 02:59 Consultations 08/22/23 00:20 ED Decision to Admit Stat 08/22/23 09:27 Consult Nephrology Routine Hospital Course (1) Seizure: 38yo male presenting after a witnessed seizure. Patient with seizure disorder. He is on Keppra 750mg po BID. He reports compliance with this medication. Found to have acute hyponatremia with Na of 121. Possible source of seizure. -Admitted to medical -Likely due to hyponatremia vs lower seizure threshold from methamphetamine use. D/W Neurology, check levels, continue above treatment. -Continue Keppra 750mg po BID. Patient was given 1gm of Keppra in the ER -Encouraged patient to stop using methamphetamine (2) Acute hyponatremia: Na of 121. Low baseline of 130'2. Possible cause of seizure. Patient has been given 1L NSS. Repeat Na has improved to 126 -resolved. consulted nephro: will recheck sodium in 3 days and have patient followup with Nephrology as an outpatient. (3) Liver failure: Patient with history of liver failure and cirrhosis. He has seen Hepatology in the past. Seems to be well compensated at present. Some elevation of liver labs - AST=43, ALT=69, JX=881. Bilirubin is normal at 0.6 -Continue Rifaximin 550mg po BID -Continue Spironolactone -Continue Propranolol - Total Time Total Time Spent Total Time Spent (In Minutes): 32 Discharge Plan Discharge Items Patient Disposition: Home - Self-Care Reason For Visit: SEIZURE Discharge Diagnosis: seizure Condition on Discharge: Good Activity: Resume your previous activity Non-emergency contact: Primary Care Provider Call non-emergency contact if: you have any medication questions Follow-up/Referrals: Albin Morales MD [Primary Care Provider] - Diet: Regular Addtl Attending Provider Instructions: Recommend a repeat metabolic profile within next 3 days and arrange follow up in the nephrology clinic with Dr. Aguirre within 2 weeks. Recommend followup with PCP in 1-2 weeks. Please stay clear of methamphetamine Pending Studies at Discharge: No Stand-Alone Forms: My [facility] watAgame, Smoking Cessation Medications and DC Order Prescriptions: Continued spironolactone 100 mg tablet 100 mg PO QAM hydroxyzine pamoate 50 mg capsule 50 mg PO HS PRN (Reason: Sleep) omeprazole 40 mg capsule,delayed release(DR/EC) 40 mg PO QAM propranolol 10 mg tablet 10 mg PO DAILY Rx Instructions: ordered bid but takes daily. levetiracetam 750 mg tablet 750 mg PO BID Xifaxan 550 mg tablet 550 mg PO AMHS Abilify Maintena 300 mg suspension,extended rel syring 0 mg IM .MONTH Discharge Orders: Discharge Order (Routine); Ordered 08/22/23 Ordered By: Morgan Rao Admission Data Admit Date/Time: 08/22/23 01:40 Attending Provider: Morgan Rao Admit Provider: Salma Perez Primary Care Provider: Albin Morales V. Other Providers: Salma Perez; Yoandy Vazquez; Jazmine Hernandez Kevin C.; Brandi Pate Other Interventions: Discharge Summary Assessment (RN) Last Done: 08/22/23 17:05 Coding Level of Care Code INP/OBS EV SAME DAY LV 3,85MIN Diagnoses Seizure R56.9 Acute hyponatremia E87.1 Liver failure K72.00 Hepatic coma status: without hepatic coma Liver failure chronicity: acute
== END 2023-08-22 17:48 | disposition home or self-care (01) | DRG 101 ==
LOC: ED 22:14 → SUATTDRO 08-22 01:40 → 3E 08-22 01:40

== ENCOUNTER 2025-03-01 20:37 | Inpatient (IN) ==
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
[2025-03-01] MEDS: SODIUM CHLORIDE 0.9% 1,000 ML IV ONE (21:32)
[2025-03-01] MEDS: KETOROLAC TROMETHAMINE 15 MG/ML VIAL IV ONE (21:33)
[2025-03-01 21:35] LABS: Appearance Urine Clear (Clear); Glucose Urine UA Negative (Negative)
[2025-03-01 21:41] LABS: Alanine Aminotransferase 27.0 U/L (7-52); Albumin Globulin Ratio 1.4 (0.9-2); Alkaline Phosphatase 62.0 U/L (34-104); Anion Gap 9.0 (3-11); Bilirubin,Total 0.8 mg/dl (0.2-1.0); Blood Urea Nitrogen 8.0 mg/dl (6-23); Calcium 8.8 mg/dl (8.6-10.3); Carbon Dioxide 23.0 mmol/L (21-32); Chloride 90.0 mmol/L (98-107); Creatinine Clr Calc Pharmacy 119.2 ml/min; Globulin 3.1 gm/dl (2.5-4.0); Glucose 116.0 mg/dl (70-99(Fasting)); Potassium 3.9 mmol/L (3.5-5.1); Sodium 122.0 mmol/L (136-145); Total Protein 7.3 gm/dl (6.0-8.3)
[2025-03-01 21:48] LABS: Magnesium 2.2 mg/dl (1.7-2.4)
[2025-03-01 22:22] LABS: Hematocrit (blood only) 38.5 % (42.0-52.0); Hemoglobin 14.2 g/dl (14.0-18.0); Mean Corpuscular Hemoglobin 30.7 pg (25.0-34.0); Mean Corpuscular Volume 83.3 fL (80.0-100.0); RDW Standard Deviation 35.6 fL (36.4-46.3); Red Blood Count 4.62 M/uL (4.70-6.10); White Blood Count 7.01 K/ul (4.8-10.8)
[2025-03-01 22:23] LABS: Immature Granulocytes # (auto) 0.02 K/uL (0.01-0.20); Immature Granulocytes % (auto) 0.3 %
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
[2025-03-01] MEDS: levETIRAcetam 250 MG TAB PO STA (23:19)
[2025-03-01] MEDS: PROPRANOLOL HCL 10 MG TAB PO STA (23:19)
[2025-03-02] MEDS ORDERED: ACETAMINOPHEN 325 MG TAB PO PRN (01:00)
[2025-03-02] MEDS ORDERED: ONDANSETRON INJ 2 MG/ML 2 ML VIAL IV PRN (01:00)
[2025-03-02] MEDS: NICOTINE 21 MG/24 HR TDSY TD SCH (01:29)
[2025-03-02 02:19] LABS: Anion Gap 6.0 (3-11); Blood Urea Nitrogen 8.0 mg/dl (6-23); Calcium 8.0 mg/dl (8.6-10.3); Carbon Dioxide 24.0 mmol/L (21-32); Chloride 96.0 mmol/L (98-107); Creatinine Clr Calc Pharmacy 128.4 ml/min; Glucose 110.0 mg/dl (70-99(Fasting)); Potassium 3.4 mmol/L (3.5-5.1); Sodium 126.0 mmol/L (136-145)
[2025-03-02 03:46] VITALS: RESP 18
[2025-03-02] MEDS: CALCIUM GLUCONATE 1,000 MG/60 ML BAG IV STA (05:02)
[2025-03-02] MEDS: POTASSIUM CHLORIDE CRTAB 20 MEQ TABCR PO STA (05:02)
[2025-03-02] MEDS: levETIRAcetam 250 MG TAB PO SCH (08:27)
[2025-03-02] MEDS: ESCITALOPRAM OXALATE 10 MG TAB PO SCH (08:27)
[2025-03-02] MEDS: PROPRANOLOL HCL 10 MG TAB PO SCH (08:28)
[2025-03-02] MEDS: REMOVE NICODERM PATCH SCH (08:32)
[2025-03-02] MEDS: POTASSIUM CHLORIDE / WTR 10 MEQ/100 ML PLCT IV SCH (09:49)
[2025-03-02 09:58] LABS: Anion Gap 5.0 (3-11); Blood Urea Nitrogen 7.0 mg/dl (6-23); Calcium 8.5 mg/dl (8.6-10.3); Carbon Dioxide 26.0 mmol/L (21-32); Chloride 100.0 mmol/L (98-107); Creatinine Clr Calc Pharmacy 133.5 ml/min; Glucose 89.0 mg/dl (70-99(Fasting)); Potassium 3.9 mmol/L (3.5-5.1); Sodium 131.0 mmol/L (136-145)
[2025-03-02 10:00] LABS: Hematocrit (blood only) 39.1 % (42.0-52.0); Hemoglobin 14.4 g/dl (14.0-18.0); Mean Corpuscular Hemoglobin 30.9 pg (25.0-34.0); Mean Corpuscular Volume 83.9 fL (80.0-100.0); Platelet Count 157 K/uL (130-400); RDW Standard Deviation 35.8 fL (36.4-46.3); Red Blood Count 4.66 M/uL (4.70-6.10); White Blood Count 7.34 K/ul (4.8-10.8)
[2025-03-02 13:07] LABS: Anion Gap 4.0 (3-11); Blood Urea Nitrogen 7.0 mg/dl (6-23); Calcium 8.4 mg/dl (8.6-10.3); Carbon Dioxide 25.0 mmol/L (21-32); Chloride 104.0 mmol/L (98-107); Creatinine Clr Calc Pharmacy 128.4 ml/min; Glucose 88.0 mg/dl (70-99(Fasting)); Potassium 4.5 mmol/L (3.5-5.1); Sodium 133.0 mmol/L (136-145)
--- NOTE | 2025-03-02 18:34 | Electrocardiogram Report ---
Test Reason : Blood Pressure : */* mmHG Vent. Rate : 84 BPM Atrial Rate : 84 BPM P-R Int : 152 ms QRS Dur : 82 ms QT Int : 372 ms P-R-T Axes : 78 52 74 degrees QTcB Int : 439 ms Normal sinus rhythm Normal ECG When compared with ECG of 06-Dec-2024 13:53, No significant change was found Confirmed by Sotero Box ([id number]) on 03/02/2025 6:34:11 PM Referred By: REFERRED SELF Confirmed By: Sotero Box
[2025-03-02 19:46] LABS: Anion Gap 7.0 (3-11); Blood Urea Nitrogen 10.0 mg/dl (6-23); Calcium 8.4 mg/dl (8.6-10.3); Carbon Dioxide 23.0 mmol/L (21-32); Chloride 108.0 mmol/L (98-107); Creatinine Clr Calc Pharmacy 125.2 ml/min; Glucose 104.0 mg/dl (70-99(Fasting)); Potassium 4.4 mmol/L (3.5-5.1); Sodium 138.0 mmol/L (136-145)
--- NOTE | 2025-03-02 22:01 | Hospitalist Progress Note ---
Date of Service March 02, 2025 Assessment & Plan (1) Seizure: Plan: No recurrence of seizure on 03/02/2025 in [facility]. I surmise that acute seizure at home on 03/01/2025 occurred as a direct consequence of excess water ingestion/intoxication at home, wherein patient concedes to drinking over 1 gallon of water per day, leading to acute hypervolemic hyponatremia. Hence, I have advised the patient to stop drinking over 1 gallon of water per da y. Patient reports that he will comply with this recommendation. In the interim, patient continues to receive his home-scheduled keppra 750mg PO bid. (2) Acute hyponatremia: Plan: Na 122 mmol/L (03/01/2025, 9:08pm). Na 126 mmol/L (03/02/2025, 1:36am). Na 131 mmol/L (03/02/2025, 8:40am). Na 133 mmol/L (03/02/2025, 12:11am). Na 138 mmol/L (03/02/2025, 6:36pm). RESOLVED without pharmacologic intervention. Asymptomatic on 03/02/2025. Check repeat Na level in the 03/03/2025 am, followed by D/C home in the 03/03/2025 am. (3) Schizophrenia: Plan: Asymptomatic with no behavioral disturbances on 03/02/2025. Observe. Plan 39-year-old male with history of seizure, schizophrenia, GERD presenting with a seizure at home Lasting approximate 2 to 3 minutes. Patient reports feeling "sick" following the seizure. Presently feels improved. Found to be acutely hyponatremic with sodium = 122. Was previously 133 on last check. He reports that he has been drinking more water at home due to trying to stay hydrated #Seizurepatient with history of the same. not likely that seizure is secondary to his hyponatremia given the fact that it is over 120. Continue Keppra 750 mg p.o. twice daily Maintain seizure precautions Keppra level sent from the ER, will await results #Acute hyponatremia with sodium = 122. Likely secondary to increased free water intake, decreased solute intake check urine and serum osmolality Check urine sodium Check BMP every 6 hours Hold spironolactone for now #Schizophrenia/mental health Continue escitalopram 10 mg p.o. daily Continue hydroxyzine 50 mg p.o. 3 times daily Patient given a prescription for Topamax which she has not yet started. Will not start this at this time. Admission and Anticipated Discharge Date Admission Date: March 01, 2025 Subjective "I feel a lot better today. No seizure today. I think maybe I was drinking too much water." Review of Systems Constitutional: Negative for antecedent/coincident fevers, chills, diaphoresis, cough, wheeze, sore throat, hemoptysis, chest pains, palpitations, pleurisy, nausea, vomiting, diarrhea, abdominal pain, pelvic pain, hematemesis, hematochezia, melena, hematuria, dysuria, frequency, urgency, headaches, dizziness, lightheadedness, visual changes, hearing changes, weakness, falls, syncope, trauma, travel history, sick contacts, or food/drug ingestions novel or new. All other review of systems are reported as negative by the patient on 03/02/2025. Physical Exam Constitutional: General: Comfortable, coherent, and cooperative. Not confused, obtunded, or lethargic. Patient speaks with regular debbie, and in complete, fluent, and articulate 7-9 word sentences without pause, interruption, cough, or wheeze with O2 sat 100% on room air (03/02/2025, 7:30pm). HEENT: Normocephalic, atraumatic. No nystagmus, gaze paresis, anisocoria, miosis, mydriasis, hyphema, scleral injection, conjunctivitis, or pterygium. No otorrhea or rhinorrhea. No pharyngeal erythema, edema, or discharge. Neck: Supple, no stridor, bruit, goiter, or hepato-jugular reflux. Jugular venous pressure is estimated to be 3 cm above the sternal angle of Valeriano, which in turn, is 5 cm above the level of the right atrium; with jugular venous pressure estimated to be 8 cm, then, there is no jugular venous distention on 03/02/2025. Lymphatics: No cervical (anterior/posterior), supraclavicular, infraclavicular, axillary, epitrochlear, or inguinal adenopathy. Chest: Symmetric rise and fall with respirations. Non-tender to palpation. Lungs: Clear to auscultation and percussion. Heart: Regular rate and rhythm. S1 and S2 noted. No S3 or S4 summation gallop. No tripartite friction rub. Grade II/ early systolic m urmur @ LLSB without radiation to the carotids, axilla, or back, and which remains invariant in regards to the respiratory cycle. Abdomen: Soft, non-tender, non-distended. No rebound, guarding, Leggett's sign, or organomegaly. Bowel sounds auscultated in all 4 quadrants. Extremities: No clubbing, cyanosis, or edema. Skin: No decubitus ulcer or enanthem or exanthem. Neuro: Awake and oriented in regards to person, place, time, and situation. DTR+. 5/5 motor strength in all 4 extremities, both proximally and distally. No myoclonus or tics or tremors. Genito-urinary: No urethral discharge. No andrade catheter. Results & Data Results & Data Vital Signs (Past 12 Hours) Vital Signs Temp Pulse Pulse Resp BP BP Pulse Ox 03/02/25 19:30 36.7 C 86 18 106/68 100 03/02/25 14:59 36.9 C 83 18 102/53 L 97 03/02/25 13:00 78 03/02/25 11:14 36.7 C 85 18 113/64 100 O2 Del Method 03/02/25 19:30 Room Air 03/02/25 14:59 Room Air 03/02/25 13:00 03/02/25 11:14 Room Air Laboratory Results Na 122 mmol/L (03/01/2025, 9:08pm). Na 126 mmol/L (03/02/2025, 1:36am). Na 131 mmol/L (03/02/2025, 8:40am). Na 133 mmol/L (03/02/2025, 12:11am). Na 138 mmol/L (03/02/2025, 6:36pm). PG Care Time/CCT Total # of Minutes Spent Total Time Spent with Patient: Total time spent is greater than 50% in coordination of care (as documented) at patient's floor/unit and/or counseling patient: Coding Level of Care Code 87524 SUB INP/OBS CARE 2/35MIN Diagnoses Seizure R56.9 Acute hyponatremia E87.1 Schizophrenia F20.9
[2025-03-03 11:27] VITALS: BP 103/69; PULSE 82; TEMP 97.5; O2SAT 98
--- NOTE | 2025-03-03 12:34 | Discharge Summary ---
Discharge Summary Date of Service March 03, 2025 Principal Dx & Hospital Course #1 = Principal Diagnosis (1) Seizure: No recurrence of seizure while in [facility] from admission date 03/01/2025 through discharge date 03/03/2025. I surmise that the patient's acute seizure at home on 03/01/2025 occurred as a direct consequence of excess water ingestion/intoxication at home, wherein patient concedes to drinking over 1 gallon of water per day, leading to acute hypervolemic hyponatremia. Hence, I advised the patient to stop drinking over 1 gallon of water per day. Patient reports that he will comply with this recommendation. In the interim, patient continued to receive his home-scheduled levetiracetam 750mg PO bid while in [facility] from admission date 03/01/2025 through discharge date 03/03/2025. Patient will continue to receive his home-scheduled levetiracetam 750mg PO bid on hospital discharge home on 03/03/2025. (2) Acute hyponatremia: cf., Na 122 mmol/L (03/01/2025, 9:08pm)(admission) cf., Na 126 mmol/L (03/02/2025, 1:36am). cf., Na 131 mmol/L (03/02/2025, 8:40am). cf., Na 133 mmol/L (03/02/2025, 12:11am). cf., Na 138 mmol/L (03/02/2025, 6:36pm)(discharge) Patient remained asymptomatic while in [facility] from admission date 03/01/2025 through discharge date 03/03/2025. Acute hypervolemic hyponatremia RESOLVED without pharmacologic intervention. Patient was advised to STOP drinking over 1 gallon of water a day, as such excessive water intake was most likely the principal contributor/cause for patient's acute hypervolemic hyponatremia. Patient reports that he will comply with this recommendation. (3) Schizophrenia: Asymptomatic with no behavioral disturbances while in [facility] from admission date 03/01/2025 through discharge date 03/03/2025. Patient did not receive his home-scheduled paliperidone 156mg IM monthly while in [facility] from admission date 03/01/2025 through discharge date 03/03/2025 as this medication is not available on hospital formulary, and as patient reports that he is not due to receive his next dose of home-scheduled paliperidone 156mg IM monthly until 04/02/2025. Plan 39 years old male with PMH of FULL CODE @ home, overweight with BMI 25.7 (height 175.3 cm; weight 79.0 kg), GERD, not on anti-reflux medication(s), chronic tonic-clonic generalized seizure disorder on levetiracetam 750mg PO bid, topiramate 50mg PO daily, major depression on escitalopram 10mg PO daily, anxiety disorder on hydroxyzine 50mg PO tid and propanolol 10mg PO bid, and chronic disorganized schizophrenia on paliperidone 156mg IM monthly, who reports drinking at least 1.0 gallon to 1.5 gallons of water a day "to stay hydrated and not get dehydrated, you know?" Patient subsequently reports having a tonic-clonic generalized seizure at his home, lasting approximately 2 to 3 minutes, after which, patient reported feeling "sick" following the seizure, having fecal incontinence in his bed, but not urinary incontinence or biting his tongue. Patient was subsequently admitted to the inpatient hospitalist service @ [facility] on 03/01/2025 with the following diagnoses: 1. [id number] seizure disorder, most probably due to acute hypervolemic hyponatremia, which in turn, was due to excessive water ingestion of 1.0 gallon to 1.5 gallons of water per day in patient's attempt to stay hydrated in the summer month of February 2025. Initial Plan: #Seizurepatient with history of the same. not likely that seizure is secondary to his hyponatremia given the fact that it is over 120. Continue Keppra 750 mg p.o. twice daily Maintain seizure precautions Keppra level sent from the ER, will await results #Acute hyponatremia with sodium = 122. Likely secondary to increased free water intake, decreased solute intake check urine and serum osmolality Check urine sodium Check BMP every 6 hours Hold spironolactone for now #Schizophrenia/mental health Continue escitalopram 10 mg p.o. daily Continue hydroxyzine 50 mg p.o. 3 times daily Patient given a prescription for Topamax which she has not yet started. Will not start this at this time. Admission HPI Per Admitting Provider Ruslan Catherine is a 31-year-old male with history of seizure disorder, schizophrenia, depression/anxiety and GERD presenting from home with a seizure. Patient had a prodrome this afternoon around 1900 with flashing lights. He then proceeded to have a 2 to 3-minute tonic/clonic seizure. Afterwards, he was postictal which lasted approximately 1 hour. He reports that he felt sick following his seizure and different than he has in the past which is why he comes to the emergency room. He feels nearly back to baseline but still a little "groggy" Overall his seizures are fairly well-controlled with his last one being several months ago. He is triggered by stress and does report that he has had some increased stress at home of late. No additional complaints. Patient reports that he is eating well at home. Has no vomiting or diarrhea. He has been through a lot of water. He reports he drinks likely over 1 gallon of water per day and states that he is "trying to stay hydrated" he does not report increased thirst. In the ER he is afebrile, hemodynamically stable, no acute distress ER course: Ativan Normal saline Discharge Exam Constitutional General: Comfortable, coherent, and cooperative. Not confused, obtunded, or lethargic. Patient speaks with regular debbie, and in complete, fluent, and articulate 7-9 word sentences without pause, interruption, cough, or wheeze with O2 sat 98% on room air (03/03/2025, 11:27am). HEENT: Normocephalic, atraumatic. No nystagmus, gaze paresis, anisocoria, miosis, mydriasis, hyphema, scleral injection, conjunctivitis, or pterygium. No otorrhea or rhinorrhea. No pharyngeal erythema, edema, or dis charge. Neck: Supple, no stridor, bruit, goiter, or hepato-jugular reflux. Jugular venous pressure is estimated to be 3 cm above the sternal angle of Valeriano, which in turn, is 5 cm above the level of the right atrium; with jugular venous pressure estimated to be 8 cm, then, there is no jugular venous distention on 03/03/2025. Lymphatics: No cervical (anterior/posterior), supraclavicular, infraclavicular, axillary, epitrochlear, or inguinal adenopathy. Chest: Symmetric rise and fall with respirations. Non-tender to palpation. Lungs: Clear to auscultation and percussion. Heart: Regular rate and rhythm. S1 and S2 noted. No S3 or S4 summation gallop. No tripartite friction rub. Grade II/ early systolic murmur @ LLSB without radiation to the carotids, axilla, or back, and which remains invariant in regards to the respiratory cycle. Abdomen: Soft, non-tender, non-distended. No rebound, guarding, Leggett's sign, or organomegaly. Bowel sounds auscultated in all 4 quadrants. Extremities: No clubbing, cyanosis, or edema. Skin: No decubitus ulcer or enanthem or exanthem. Neuro: Awake and oriented in regards to person, place, time, and situation. DTR+. 5/5 motor strength in all 4 extremities, both proximally and distally. No myoclonus or tics or tremors. Genito-urinary: No urethral discharge. No andrade catheter. Discharge Plan Discharge Items Patient Disposition: Home - Self-Care Reason For Visit: SEIZURE HYPONATREMIA Discharge Diagnosis: 1. [id number] seizure disorder, due to: 2. Acute hypervolemic hyponatremia with admission Na 122 mmol/L (03/01/2025, 9:08pm), due to drinking 1 gallon of water per day. Condition on Discharge: Fair Activity: As commented below Activity Comment: Do NOT drink 1 gallon of water a day as it lowers your sodium level. Lifting: Gradually increase as tolerated Bathing: No limitations Sexual Activity: When tolerated Exercise/Sports: As tolerated Weightbearing: Full weightbearing Non-emergency contact: Primary Care Provider Call non-emergency contact if: you have any medication questions Follow-up/Referrals: Albin Morales MD [Primary Care Provider] - 03/09/25 2:30 pm Diet: Heart Healthy Addtl Attending Provider Instructions: 1. See your PCP Dr. Albin Morales within 5-7 days of hospital discharge for repeat Na level testing. Pending Studies at Discharge: Yes Studies:: 1. See your PCP Dr. Albin Morales within 5-7 days of hospital discharge for repeat Na level testing. Stand-Alone Forms: My [facility], Smoking Cessation Medications and DC Order Prescriptions: Continued hydroxyzine HCl 50 mg tablet 50 mg PO TID levetiracetam 750 mg tablet 750 mg PO BID Qty: 60 11RF spironolactone 100 mg tablet 100 mg PO QAM propranolol 10 mg tablet 10 mg PO BID escitalopram oxalate [Lexapro] 10 mg Tablet 10 mg PO DAILY topiramate 50 mg tablet 50 mg PO DAILY Rx Instructions: ORDERED 03/01/25 PER PT "DID NOT START YET". Invega Sustenna 156 mg/mL syringe 156 mg IM MONTHLY Rx Instructions: NEXT DUE 03/09/25. Discharge Orders: Discharge Order (Routine); Ordered 03/03/25 Ordered By: Edin Carver Admission Data Admit Date/Time: 03/01/25 22:49 Attending Provider: Edin Carver Admit Provider: Salma Perez Primary Care Provider: Albin Morales V. Other Providers: Salma Perez Hospital Stay Data Consultations 03/01/25 22:06 ED Decision to Admit Stat Pending Results Patient Have Any Pending Studies at Discharge: Yes Discharge Instructions Given to Patient (Per Discharging Provider) 1. See your PCP Dr. Albin Morales within 5-7 days of hospital discharge for repeat Na level testing. Total Time Total Time Spent Total Time Spent (In Minutes): 35 minutes. Of this time period, 19 minutes were spent in coordinating patient's discharge. Coding Level of Care Code 04172 INP/OBS DISCH >30 MIN Diagnoses Seizure R56.9 Acute hyponatremia E87.1 Schizophrenia F20.9
== END 2025-03-03 13:37 | disposition home or self-care (01) | DRG 101 ==
LOC: SUATTDRO → ED 20:37 → SUATTDRO 22:49 → 2N 22:49